=== PATIENT | male | born 1950 | race Caucasian/White ===

== ENCOUNTER → 2016-11-10 | Outpatient (CLI) | payer OTHER ==
[2016-11-10 08:58] LABS: Urine RBC None Seen /hpf (0 - 3)
[2016-11-10 09:09] LABS: Basophils # (auto) 0 uL; Basophils % (auto) 0.5 % (0.0-2.0); DEFINITIVE VIEW TRANSMISSION; Eosinophils # (auto) 0.2 uL; Eosinophils % (auto) 3.3 % (0.0-7.0); Hemoglobin 13.1 g/dL (13.5-17.5); Lymphocytes # (auto) 0.8 uL; Lymphocytes % (auto) 13.7 % (10.0-50.0); Mean Corpuscular Hemoglobin 26.5 pg (28.0-32.0); Mean Corpuscular Hgb Conc. 32.7 g/dL (32.0-36.0); Mean Platelet Volume 7.9 fL (7.4-10.4); Monocytes # (auto) 0.4 uL; Monocytes % (auto) 6.2 % (0.0-12.0); Neutrophils # (auto) 4.6 uL; Neutrophils % (auto) 76.3 % (37.0-80.0); Platelet Count (auto) 210 10^3/uL (140-450); Red Cell Distribution Width 15.9 % (11.6-16.0)
[2016-11-10 09:26] LABS: Urine Bilirubin Negative (Negative); Urine Blood Negative /uL (Negative); Urine Color Yellow (Yellow); Urine Glucose TRACE mg/dL (Normal); Urine Ketone Negative (Negative); Urine Nitrite Negative (Negative); Urine Urobilinogen Normal (Negative); Urine pH 5.5 (5.0-8.0)
[2016-11-10 09:31] LABS: Albumin 3.7 g/dL (3.4-5.0); Alkaline Phosphatase 72 U/L (45-117); Anion Gap 10 (5-15); Aspartate Aminotransferase 8 U/L (15-37); BUN/Creatinine Ratio 19.4; Bilirubin, Total 0.3 mg/dL (0.2-1.0); Blood Urea Nitrogen 28 mg/dL (7-18); Carbon Dioxide 26 mmol/L (21-32); Chloride 106 mmol/L (98-107); Cholesterol 152 mg/dL (<200); GFR African American 63 mL/min; GFR Non-African American 52 mL/min; Glucose 184 mg/dL (74-106); HDL Cholesterol 27 mg/dL (40-59); Sodium 142 mmol/L (136-145); Total Protein 6.9 g/dL (6.4-8.2); Triglycerides 424 mg/dL (<150)
== END | disposition home or self-care (01) ==
LOC: LAB 08:27
PROVIDERS: ATTEND Family Medicine
DX: E11.9 Type 2 diabetes mellitus without complications (principal)
CPT/HCPCS: 36415; 80053; 80061; 81001; 82043; 82746; 83036; 84443; 85025; 85049

== ENCOUNTER → 2016-11-27 | Outpatient (CLI) | payer OTHER | END | disposition home or self-care (01) | LOC: XY 09:53 | PROVIDERS: ATTEND Family Medicine | DX: I73.89 Other specified peripheral vascular diseases (principal); I70.8 Atherosclerosis of other arteries | CPT/HCPCS: 93923; 93925 ==

== ENCOUNTER → 2017-02-09 | Outpatient (CLI) | payer OTHER ==
[2017-02-09 10:47] LABS: INR 0.94 (0.9-1.15); Partial Thromboplastin Time 26.6 sec (22.64-33.71); Prothrombin Time 10.1 sec (9.37-12.3)
[2017-02-09 11:04] LABS: Basophils # (auto) 0 uL; Basophils % (auto) 0.6 % (0.0-2.0); DEFINITIVE VIEW TRANSMISSION; Eosinophils # (auto) 0.2 uL; Eosinophils % (auto) 4.1 % (0.0-7.0); Hematocrit 40.6 % (41.0-53.0); Hemoglobin 13.7 g/dL (13.5-17.5); Lymphocytes # (auto) 0.8 uL; Lymphocytes % (auto) 15.5 % (10.0-50.0); Mean Corpuscular Hemoglobin 26.8 pg (28.0-32.0); Mean Corpuscular Hgb Conc. 33.6 g/dL (32.0-36.0); Mean Corpuscular Volume 79.8 fL (80.0-100.0); Mean Platelet Volume 8.4 fL (7.4-10.4); Monocytes # (auto) 0.3 uL; Monocytes % (auto) 6.5 % (0.0-12.0); Neutrophils # (auto) 3.9 uL; Neutrophils % (auto) 73.3 % (37.0-80.0); Platelet Count (auto) 206 10^3/uL (140-450); Red Cell Distribution Width 15.5 % (11.6-16.0); White Blood Cell 5.4 10^3/uL (4.4-10.8)
[2017-02-09 11:10] LABS: BUN/Creatinine Ratio 11.9; Potassium 4.1 mmol/L (3.5-5.1)
== END | disposition home or self-care (01) ==
LOC: LAB 09:53
PROVIDERS: ATTEND Family Medicine
DX: E11.9 Type 2 diabetes mellitus without complications (principal); Z01.818 Encounter for other preprocedural examination; I73.00 Raynaud's syndrome without gangrene
CPT/HCPCS: 36415; 80048; 83036; 85025; 85610; 85730

== ENCOUNTER 2017-03-01 09:58 | Inpatient (IN) | payer OTHER ==
[2017-02-27 12:08] LABS: Basophils # (auto) 0 uL; Basophils % (auto) 0.7 % (0.0-2.0); DEFINITIVE VIEW TRANSMISSION; Eosinophils # (auto) 0.3 uL; Eosinophils % (auto) 4.2 % (0.0-7.0); Hematocrit 39.3 % (41.0-53.0); Lymphocytes # (auto) 0.9 uL; Lymphocytes % (auto) 14.2 % (10.0-50.0); Mean Corpuscular Hemoglobin 26.3 pg (28.0-32.0); Mean Corpuscular Volume 79.7 fL (80.0-100.0); Mean Platelet Volume 8.5 fL (7.4-10.4); Monocytes # (auto) 0.3 uL; Monocytes % (auto) 5.5 % (0.0-12.0); Neutrophils # (auto) 4.6 uL; Neutrophils % (auto) 75.4 % (37.0-80.0); Platelet Count (auto) 182 10^3/uL (140-450); Red Cell Distribution Width 16.1 % (11.6-16.0); White Blood Cell 6.1 10^3/uL (4.4-10.8)
[2017-02-27 12:27] LABS: INR 1.01 (0.9-1.15); Prothrombin Time 10.9 sec (9.37-12.3)
[2017-02-27 12:51] LABS: BUN/Creatinine Ratio 16.4; Calcium 8.7 mg/dL (8.5-10.1)
[~2017-03-01] VITALS: Ht 175.3 cm; Wt 92.2 kg
[2017-03-01] MEDS ORDERED: IOHEXOL 350 MG/ML 100ML IJ ONE (11:30)
[2017-03-01] MEDS ORDERED: LIDOCAINE 2%HCL (LOCAL ANESTH.) INJ 20ML MDV ONE (11:31)
[2017-03-01] MEDS ORDERED: ANGIOMAX 250 MG VIAL IV ONE (11:34)
[2017-03-01] MEDS ORDERED: fentaNYL CITRATE 100 MCG/2 ML VL ONE (11:35)
[2017-03-01] MEDS ORDERED: SODIUM CHL 0.9% 50 ML ONE (11:35)
[2017-03-01] MEDS ORDERED: MIDAZOLAM HCL 1MG/1ML-2 ML VIAL ONE (11:35)
[2017-03-01] MEDS ORDERED: SODIUM CHLORIDE 0.9% 1,000 ML IV SCH (13:13)
[2017-03-01] MEDS ORDERED: NITROGLYCERIN 0.4 MG SL TAB SL PRN (13:15)
[2017-03-01] MEDS ORDERED: ACETAMINOPHEN 500 MG TAB PO PRN (13:15)
[2017-03-01] MEDS ORDERED: ZOLPIDEM TARTRATE 5 MG TAB PO PRN (13:15)
[2017-03-01] MEDS ORDERED: LORazepam 0.5 MG TAB PO PRN (13:15)
[2017-03-01] MEDS ORDERED: MORPHINE SULF INJ 2 MG/ML SYRINGE 1ML IV PRN (13:15)
[2017-03-01] MEDS ORDERED: ONDANSETRON HCL 4 MG/2 ML VIAL IV PRN (13:15)
[2017-03-01] MEDS ORDERED: INSU70IN3 SC (13:21)
[2017-03-01] MEDS ORDERED: LOVA20TA4 PO (13:21)
[2017-03-01] MEDS ORDERED: INSUINJ18 SC (13:21)
[2017-03-01] MEDS ORDERED: SIMV-13 PO (13:21)
[2017-03-01] MEDS ORDERED: OME20T PO (13:21)
[2017-03-01] MEDS ORDERED: CLOP75TA41 PO (13:21)
[2017-03-01] MEDS ORDERED: FENO160T8 PO (13:21)
[2017-03-01] MEDS ORDERED: METF-312 PO (13:55)
[2017-03-01] MEDS ORDERED: CLOPIDOGREL 300 MG TAB PO ONE (17:00)
[2017-03-01] MEDS: metFORMIN HYDROCHLORIDE 500 MG TAB PO SCH (18:00)
[2017-03-01] MEDS: HYDROcodone-ACET 5/325MG TAB PO PRN ×2 (18:01→22:05)
[2017-03-01 22:00] VITALS: BP 147/73
[2017-03-01] MEDS ORDERED: ATORVASTATIN 20 MG TAB PO SCH (22:00)
[2017-03-02 05:00] VITALS: BP 150/79
[2017-03-02 08:00] VITALS: BP 154/80
[2017-03-02] MEDS ORDERED: INSULIN ASPART PROTAMINE SC SCH (08:00)
[2017-03-02] MEDS: metFORMIN HYDROCHLORIDE 500 MG TAB PO SCH (08:00)
[2017-03-02] MEDS ORDERED: ASP SC SCH (08:00)
[2017-03-02] MEDS ORDERED: [UNRECOGNIZED DRUG - OTHER] SC SCH (08:00)
[2017-03-02 09:00] VITALS: BP 154/80
[2017-03-02] MEDS ORDERED: CLOPIDOGREL BISULFATE 75 MG TAB PO SCH (10:00)
[2017-03-02] MEDS ORDERED: PATIENTS OWN MEDICATION (Lovastatin 1 TAB) PO SCH (10:00)
[2017-03-02] MEDS ORDERED: FENOFIBRATE 160 MG PO SCH (10:00)
[2017-03-02] MEDS ORDERED: PANTOPRAZOLE 40 MG TAB PO SCH (10:00)
[2017-03-02 13:00] VITALS: BP_SYST 117; BP_SYST 122; BP_DIAS 65
[2017-03-02 14:08] VITALS: BP 154/80
== END 2017-03-02 15:58 | disposition home or self-care (01) | DRG 272 ==
LOC: CATH 09:58 → TELE-E-ADS 09:59 → TELE-CENTR 15:33 → CENTRAL 03-02 02:44
PROVIDERS: ADMIT Internal Medicine Cardiovascular Disease; ATTEND Internal Medicine Cardiovascular Disease
PROC: 047K3Z1 Dilation of Right Femoral Artery using Drug-Coated Balloon, Percutaneous Approach (ICD-10-PCS; principal; 2017-03-01)
PROC: 04CK3ZZ Extirpation of Matter from Right Femoral Artery, Percutaneous Approach (ICD-10-PCS; 2017-03-01)
PROC: 047M3ZZ Dilation of Right Popliteal Artery, Percutaneous Approach (ICD-10-PCS; 2017-03-01)
PROC: 047Y3ZZ Dilation of Lower Artery, Percutaneous Approach (ICD-10-PCS; 2017-03-01)
PROC: B41F1ZZ Fluoroscopy of Right Lower Extremity Arteries using Low Osmolar Contrast (ICD-10-PCS; 2017-03-01)
DX: I74.3 Embolism and thrombosis of arteries of the lower extremities (principal); J44.9 Chronic obstructive pulmonary disease, unspecified; Z79.01 Long term (current) use of anticoagulants
CPT/HCPCS: 36415; 80048; 82962; 85025; 85610; C1769; J2250

== ENCOUNTER → 2017-06-05 | Outpatient (CLI) | payer OTHER ==
[~2017-06-05] MED LIST: CLOP75TA41 PO; FENO160T8 PO; INSUINJ18 SC; LOVA20TA4 PO; METF-370 PO; OME20T PO; SIMV-13 PO
[2017-06-05 10:56] LABS: Urine RBC None Seen /hpf (0 - 3)
[2017-06-05 11:06] LABS: Basophils # (auto) 0 uL; Basophils % (auto) 0.7 % (0.0-2.0); CONDITION Y; Eosinophils # (auto) 0.2 uL; Eosinophils % (auto) 4.1 % (0.0-7.0); Hematocrit 37.8 % (41.0-53.0); Hemoglobin 12.8 g/dL (13.5-17.5); Lymphocytes # (auto) 0.8 uL; Lymphocytes % (auto) 15.2 % (10.0-50.0); Mean Corpuscular Hemoglobin 27.5 pg (28.0-32.0); Mean Corpuscular Hgb Conc. 33.8 g/dL (32.0-36.0); Mean Corpuscular Volume 81.3 fL (80.0-100.0); Mean Platelet Volume 8.8 fL (7.4-10.4); Monocytes # (auto) 0.4 uL; Monocytes % (auto) 7.4 % (0.0-12.0); Neutrophils # (auto) 3.6 uL; Neutrophils % (auto) 72.6 % (37.0-80.0); Platelet Count (auto) 172 10^3/uL (140-450); Red Cell Distribution Width 16.8 % (11.6-16.0); Urine Bilirubin Negative (Negative); Urine Blood Negative /uL (Negative); Urine Color Yellow (Yellow); Urine Ketone Negative (Negative); Urine Mucus FEW (None Seen); Urine Nitrite Negative (Negative); Urine Squamous Epithelial Cell FEW /hpf (<5); Urine Urobilinogen Normal (Negative)
[2017-06-05 11:07] LABS: Urine Glucose 3+ mg/dL (Normal)
[2017-06-05 11:28] LABS: Albumin 3.5 g/dL (3.4-5.0); Alkaline Phosphatase 76 U/L (45-117); Anion Gap 10 (5-15); Aspartate Aminotransferase 8 U/L (15-37); BUN/Creatinine Ratio 15.4; Bilirubin, Total 0.4 mg/dL (0.2-1.0); Blood Urea Nitrogen 21 mg/dL (7-18); Calcium 8.6 mg/dL (8.5-10.1); Carbon Dioxide 25 mmol/L (21-32); Chloride 106 mmol/L (98-107); Cholesterol 132 mg/dL (< 200); GFR African American 67 mL/min; GFR Non-African American 56 mL/min; Glucose 182 mg/dL (74-106); HDL Cholesterol 22 mg/dL (40-59); Potassium 4.1 mmol/L (3.5-5.1); Sodium 141 mmol/L (136-145); Total Protein 6.9 g/dL (6.4-8.2); Triglycerides 625 mg/dL (< 150)
== END | disposition home or self-care (01) ==
LOC: LAB 10:05
PROVIDERS: ATTEND Family Medicine
DX: E11.8 Type 2 diabetes mellitus with unspecified complications (principal)
CPT/HCPCS: 36415; 80053; 80061; 81001; 83036; 84443; 85025

== ENCOUNTER 2017-08-06 08:46 | Day surgery (SDC) | payer OTHER ==
[2017-08-03 09:52] LABS: Basophils # (auto) 0.1 uL; Basophils % (auto) 1.3 % (0.0-2.0); Eosinophils # (auto) 0.3 uL; Hematocrit 40.3 % (41.0-53.0); Lymphocytes % (auto) 17.5 % (10.0-50.0); Mean Corpuscular Hemoglobin 28.6 pg (28.0-32.0); Mean Corpuscular Hgb Conc. 34.8 g/dL (32.0-36.0); Mean Corpuscular Volume 82.3 fL (80.0-100.0); Mean Platelet Volume 8.4 fL (6.9-10.8); Monocytes # (auto) 0.4 uL; Monocytes % (auto) 6.6 % (0.0-12.0); Neutrophils % (auto) 69.6 % (37.0-80.0); Nucleated Red Blood Cells % 0.1 %; Platelet Count (auto) 144 10^3/uL (140-450); Red Cell Distribution Width 15.8 % (11.8-14.3); White Blood Cell 5.7 10^3/uL (4.4-10.8)
[2017-08-03 10:00] LABS: INR 0.99 (0.9-1.15); Partial Thromboplastin Time 27.1 sec (22.64-33.71); Prothrombin Time 10.8 sec (9.37-12.3)
[~2017-08-06] VITALS: Ht 175.3 cm; Wt 90.7 kg
[~2017-08-06 08:46] MED LIST changes: +INSU70IN3 SC; -INSUINJ18 SC; +LIDOCAINE VISCOUS 2% 15ML UD ONE; +LISI10TA6 PO; -LOVA20TA4 PO; +MIDAZOLAM HCL 5 MG/ML-1ML VIAL ONE; -OME20T PO; +RANI300C7 PO; +SODIUM CHLORIDE LOCK 0 ML ONE; +diphenhdrAMINE HCL 50 MG/1 ML VL ONE; +fentaNYL CITRATE 100 MCG/2 ML VL ONE
[2017-08-06 11:20] VITALS: BP 126/71
[2017-08-06] MEDS ORDERED: MIDAZOLAM HCL 5 MG/ML-1ML VIAL ONE (14:58)
[2017-08-06] MEDS ORDERED: diphenhdrAMINE HCL 50 MG/1 ML VL ONE (14:58)
[2017-08-06] MEDS ORDERED: LIDOCAINE VISCOUS 2% 15ML UD ONE (14:58)
[2017-08-06] MEDS ORDERED: SODIUM CHLORIDE LOCK 10 ML ONE (14:58)
[2017-08-06] MEDS ORDERED: fentaNYL CITRATE 100 MCG/2 ML VL ONE (14:59)
== END 2017-08-06 11:24 | disposition home or self-care (01) ==
LOC: GI 08:46
PROVIDERS: ATTEND Internal Medicine Gastroenterology
DX: K29.50 Unspecified chronic gastritis without bleeding (principal); K44.9 Diaphragmatic hernia without obstruction or gangrene; E11.9 Type 2 diabetes mellitus without complications; K21.9 Gastro-esophageal reflux disease without esophagitis; Z95.5 Presence of coronary angioplasty implant and graft
CPT/HCPCS: 36415; 43239; 82962; 85025; 85610; 85730; J2250; J3010; J7030

== ENCOUNTER → 2017-10-19 | Outpatient (CLI) | payer OTHER ==
[~2017-10-19] VITALS: Ht 175.3 cm; Wt 90.7 kg
[~2017-10-19] MED LIST changes: +ADENOSINE 76 MG in GIVE UN-DILUTED 0 ML IV ONE; +ADENOSINE 90 MG/30 ML INJ IV ONE; -LIDOCAINE VISCOUS 2% 15ML UD ONE; -MIDAZOLAM HCL 5 MG/ML-1ML VIAL ONE; -SODIUM CHLORIDE LOCK 0 ML ONE; -diphenhdrAMINE HCL 50 MG/1 ML VL ONE; -fentaNYL CITRATE 100 MCG/2 ML VL ONE
== END | disposition home or self-care (01) ==
LOC: Rad HDHVI 10:30
PROVIDERS: ATTEND Internal Medicine Cardiovascular Disease
DX: I73.9 Peripheral vascular disease, unspecified (principal); E11.9 Type 2 diabetes mellitus without complications
CPT/HCPCS: 78452; 93005; 96374; 96375; A9500; J0153

== ENCOUNTER → 2017-10-23 | Outpatient (CLI) | payer OTHER ==
[~2017-10-23] MED LIST changes: -ADENOSINE 76 MG in GIVE UN-DILUTED 0 ML IV ONE; -ADENOSINE 90 MG/30 ML INJ IV ONE; +OME20T PO
== END | disposition home or self-care (01) ==
LOC: Rad HDHVI 08:10
PROVIDERS: ATTEND Internal Medicine Cardiovascular Disease
DX: I70.8 Atherosclerosis of other arteries (principal)
CPT/HCPCS: 93926

== ENCOUNTER 2017-10-26 08:09 | Emergency (ER) | payer OTHER ==
[~2017-10-26] VITALS: Ht 175.3 cm; Wt 95.3 kg
[~2017-10-26 08:09] MED LIST changes: -OME20T PO
[2017-10-26 08:55] LABS: Basophils # (auto) 0 uL; Basophils % (auto) 0.6 % (0.0-2.0); Eosinophils # (auto) 0.1 uL; Eosinophils % (auto) 1.4 % (0.0-7.0); Hematocrit 38.3 % (41.0-53.0); Hemoglobin 12.9 g/dL (13.5-17.5); Lymphocytes # (auto) 0.7 uL; Lymphocytes % (auto) 12.8 % (10.0-50.0); Mean Corpuscular Hemoglobin 27.5 pg (28.0-32.0); Mean Corpuscular Hgb Conc. 33.7 g/dL (32.0-36.0); Mean Corpuscular Volume 81.8 fL (80.0-100.0); Monocytes # (auto) 0.4 uL; Monocytes % (auto) 6.4 % (0.0-12.0); Neutrophils # (auto) 4.6 uL; Neutrophils % (auto) 78.8 % (37.0-80.0); Nucleated Red Blood Cells % 0.1 %; Platelet Count (auto) 172 10^3/uL (140-450); Red Blood Cells 4.69 10^6/uL (4.5-5.90); Red Cell Distribution Width 15.8 % (11.8-14.3); White Blood Cell 5.9 10^3/uL (4.4-10.8)
[2017-10-26 09:11] LABS: INR 0.96 (0.9-1.15); Prothrombin Time 10.5 sec (9.37-12.3)
[2017-10-26 09:16] LABS: Albumin 3.7 g/dL (3.4-5.0); Anion Gap 8 (5-15); Blood Urea Nitrogen 22 mg/dL (7-18); Carbon Dioxide 27 mmol/L (21-32); Chloride 106 mmol/L (98-107); Glucose 276 mg/dL (74-106); Sodium 141 mmol/L (136-145)
[2017-10-26 09:18] LABS: Alanine Aminotransferase 19 U/L (16-61); Aspartate Aminotransferase 7 U/L (15-37); BUN/Creatinine Ratio 16.1; GFR African American 67 mL/min; GFR Non-African American 55 mL/min
[2017-10-26 09:23] LABS: Alkaline Phosphatase 80 U/L (45-117); Bilirubin, Total 0.3 mg/dL (0.2-1.0); Total Protein 7.5 g/dL (6.4-8.2)
[2017-10-26 13:45] VITALS: BP 170/75
[2017-11-27] MEDS ORDERED: OME20T PO (15:21)
== END 2017-10-26 14:04 | disposition home or self-care (01) ==
LOC: ER 08:22
DX: R07.89 Other chest pain (principal); I10 Essential (primary) hypertension; E11.9 Type 2 diabetes mellitus without complications; E78.5 Hyperlipidemia, unspecified; Z79.4 Long term (current) use of insulin
CPT/HCPCS: 36415; 71020; 80053; 84484; 85025; 85610; 85730; 93005

== ENCOUNTER 2017-10-30 09:24 | Inpatient (IN) | payer OTHER ==
[~2017-10-30] VITALS: Ht 175.3 cm; Wt 90.7 kg
[2017-10-30 10:45] LABS: Basophils # (auto) 0.1 uL; Basophils % (auto) 1.1 % (0.0-2.0); Eosinophils # (auto) 0.1 uL; Hematocrit 39.9 % (41.0-53.0); Hemoglobin 13.5 g/dL (13.5-17.5); Lymphocytes # (auto) 0.9 uL; Lymphocytes % (auto) 12.6 % (10.0-50.0); Mean Corpuscular Hemoglobin 27.7 pg (28.0-32.0); Mean Corpuscular Hgb Conc. 33.9 g/dL (32.0-36.0); Mean Corpuscular Volume 81.8 fL (80.0-100.0); Monocytes # (auto) 0.4 uL; Monocytes % (auto) 5.8 % (0.0-12.0); Neutrophils # (auto) 5.7 uL; Neutrophils % (auto) 78.5 % (37.0-80.0); Nucleated Red Blood Cells % 0.1 %; Platelet Count (auto) 173 10^3/uL (140-450); Red Blood Cells 4.88 10^6/uL (4.5-5.90); White Blood Cell 7.2 10^3/uL (4.4-10.8)
[2017-10-30 11:00] LABS: INR 0.98 (0.9-1.15); Partial Thromboplastin Time 25.2 sec (22.64-33.71); Prothrombin Time 10.7 sec (9.37-12.3)
[2017-10-30 11:10] LABS: Alanine Aminotransferase 22 U/L (16-61); Albumin 3.8 g/dL (3.4-5.0); Alkaline Phosphatase 88 U/L (45-117); Anion Gap 7 (5-15); Aspartate Aminotransferase 13 U/L (15-37); BUN/Creatinine Ratio 18.8; Bilirubin, Total 0.3 mg/dL (0.2-1.0); Blood Urea Nitrogen 27 mg/dL (7-18); Calcium 8.7 mg/dL (8.5-10.1); Carbon Dioxide 27 mmol/L (21-32); Chloride 106 mmol/L (98-107); GFR African American 63 mL/min; GFR Non-African American 52 mL/min; Glucose 262 mg/dL (74-106); Potassium 4.5 mmol/L (3.5-5.1); Sodium 140 mmol/L (136-145); Total Protein 7.4 g/dL (6.4-8.2)
[2017-10-30 11:44] VITALS: BP 157/85
[2017-10-30] MEDS ORDERED: LACTULOSE 20Gm/30ML SOLN PO PRN (12:15)
[2017-10-30] MEDS ORDERED: DEXTROSE (50%) 50ML SYRG IV PRN ×2 (12:15)
[2017-10-30] MEDS ORDERED: MORPHINE SULFATE 4 MG/ML SYR/VIAL IV PRN (12:15)
[2017-10-30] MEDS ORDERED: NITROGLYCERIN 0.4 MG SL TAB SL PRN (12:15)
[2017-10-30] MEDS ORDERED: ASPirin 81 mg TAB PO SCH (12:34)
[2017-10-30] MEDS ORDERED: ENALAPRIL MALEATE 10 MG TAB PO SCH (12:35)
[2017-10-30] MEDS ORDERED: PANTOPRAZOLE 40 MG/10 ML VIAL IV SCH (12:35)
[2017-10-30] MEDS ORDERED: LIDOCAINE 2%HCL (LOCAL ANESTH.) INJ 20ML MDV ONE ×2 (12:40→14:24)
[2017-10-30] MEDS ORDERED: IOHEXOL 350 MG/ML 100ML IJ ONE ×2 (12:40→13:56)
[2017-10-30] MEDS: SODIUM CHLORIDE 0.9% 1,000 ML IV SCH ×2 (12:46→14:57)
[2017-10-30] MEDS ORDERED: ANGIOMAX 250 MG VIAL IV ONE (13:53)
[2017-10-30] MEDS ORDERED: fentaNYL CITRATE 100 MCG/2 ML VL ONE (13:53)
[2017-10-30] MEDS ORDERED: MIDAZOLAM HCL 1MG/1ML-2 ML VIAL ONE (13:53)
[2017-10-30] MEDS ORDERED: IODIXANOL 320MG/ML 100ML BTL IV ONE (14:03)
[2017-10-30] MEDS ORDERED: SODIUM CHLORIDE 0.9% 1,000 ML IV SCH (15:00)
[2017-10-30] MEDS ORDERED: InsuLIN REG 1unit/0.01ml Soln (100units/ml) SC SCH (18:00)
[2017-10-30] MEDS ORDERED: ACCU-CHEK COMFORT CURVE STRIP VI SCH (18:00)
[2017-10-30] MEDS ORDERED: ATORVASTATIN 20 MG TAB PO SCH (22:00)
[2017-10-30] MEDS ORDERED: METOPROLOL TARTRATE 25 MG TAB PO SCH (22:00)
[2017-11-27] MEDS ORDERED: OME20T PO (15:21)
== END 2017-10-30 17:00 | disposition home or self-care (01) | DRG 287 ==
LOC: ER 09:24 → TELE 09:25
PROVIDERS: ADMIT Family Medicine; ATTEND Family Medicine
PROC: 4A023N7 Measurement of Cardiac Sampling and Pressure, Left Heart, Percutaneous Approach (ICD-10-PCS; principal; 2017-10-30)
PROC: B2111ZZ Fluoroscopy of Multiple Coronary Arteries using Low Osmolar Contrast (ICD-10-PCS; 2017-10-30)
PROC: B2151ZZ Fluoroscopy of Left Heart using Low Osmolar Contrast (ICD-10-PCS; 2017-10-30)
PROC: B41F1ZZ Fluoroscopy of Right Lower Extremity Arteries using Low Osmolar Contrast (ICD-10-PCS; 2017-10-30)
DX: I25.110 Atherosclerotic heart disease of native coronary artery with unstable angina pectoris (principal); E11.51 Type 2 diabetes mellitus with diabetic peripheral angiopathy without gangrene; J44.9 Chronic obstructive pulmonary disease, unspecified; E11.65 Type 2 diabetes mellitus with hyperglycemia; E78.5 Hyperlipidemia, unspecified; M19.90 Unspecified osteoarthritis, unspecified site; K59.00 Constipation, unspecified; G56.03 Carpal tunnel syndrome, bilateral upper limbs; I10 Essential (primary) hypertension; Z87.891 Personal history of nicotine dependence; Z79.4 Long term (current) use of insulin; Z79.899 Other long term (current) drug therapy; Z83.3 Family history of diabetes mellitus; Z82.49 Family history of ischemic heart disease and other diseases of the circulatory system; Z79.82 Long term (current) use of aspirin
CPT/HCPCS: 36415; 71046; 80053; 82962; 83036; 84484; 85025; 85610; 85730; 93005; 93458; 94761; 96374; 96375; 99152; C9113; J2250; Q9967

== ENCOUNTER → 2017-11-27 | Outpatient (CLI) | payer OTHER ==
[~2017-11-27] MED LIST changes: +OME20T PO
[2017-11-27 14:43] LABS: Basophils # (auto) 0.1 uL; Basophils % (auto) 1.2 % (0.0-2.0); Eosinophils # (auto) 0.2 uL; Eosinophils % (auto) 2.4 % (0.0-7.0); Hematocrit 42.1 % (41.0-53.0); Hemoglobin 14.3 g/dL (13.5-17.5); Lymphocytes % (auto) 12.6 % (10.0-50.0); Mean Corpuscular Hemoglobin 27.8 pg (28.0-32.0); Mean Corpuscular Hgb Conc. 33.9 g/dL (32.0-36.0); Mean Corpuscular Volume 81.9 fL (80.0-100.0); Monocytes # (auto) 0.5 uL; Monocytes % (auto) 6.5 % (0.0-12.0); Neutrophils # (auto) 6.2 uL; Neutrophils % (auto) 77.3 % (37.0-80.0); Nucleated Red Blood Cells % 0.1 %; Platelet Count (auto) 195 10^3/uL (140-450); Red Blood Cells 5.14 10^6/uL (4.5-5.90); Red Cell Distribution Width 16.5 % (11.8-14.3)
[2017-11-27 15:19] LABS: BUN/Creatinine Ratio 14.9; Calcium 8.9 mg/dL (8.5-10.1); Potassium 4.2 mmol/L (3.5-5.1)
[2017-11-27 16:06] LABS: INR 0.94 (0.9-1.15); Prothrombin Time 10.2 sec (9.37-12.3)
== END | disposition home or self-care (01) ==
LOC: LAB 14:17
PROVIDERS: ATTEND Family Medicine
DX: Z01.818 Encounter for other preprocedural examination (principal)
CPT/HCPCS: 36415; 80048; 85025; 85610

== ENCOUNTER 2017-11-29 08:05 | Inpatient (IN) | payer OTHER ==
[~2017-11-29] VITALS: Ht 175.3 cm; Wt 95.5 kg
[~2017-11-29 08:05] MED LIST changes: -RANI300C7 PO
[2017-11-29] MEDS ORDERED: HYDROcodone-ACET 10/325MG TAB ONE (10:11)
[2017-11-29] MEDS ORDERED: HYDROcodone-ACET 10/325MG TAB PO ONE (10:15)
[2017-11-29] MEDS ORDERED: IOHEXOL 350 MG/ML 100ML IJ ONE (10:32)
[2017-11-29] MEDS ORDERED: LIDOCAINE 2%HCL (LOCAL ANESTH.) INJ 20ML MDV ONE (10:32)
[2017-11-29] MEDS ORDERED: MIDAZOLAM HCL 1MG/1ML-2 ML VIAL ONE ×2 (10:36→11:30)
[2017-11-29] MEDS ORDERED: fentaNYL CITRATE 100 MCG/2 ML VL ONE (10:36)
[2017-11-29] MEDS ORDERED: ANGIOMAX 250 MG VIAL IV ONE (10:52)
[2017-11-29] MEDS ORDERED: NITROGLYCERIN 5MG/ML 10ML VIAL IV ONE (11:19)
[2017-11-29] MEDS ORDERED: SODIUM CHL 0.9% 50 ML ONE (11:19)
[2017-11-29] MEDS ORDERED: SODIUM CHL 0.9% 150 ML ONE (11:23)
[2017-11-29] MEDS ORDERED: SODIUM CHLORIDE 0.9% 1,000 ML IV SCH (11:55)
[2017-11-29] MEDS ORDERED: ONDANSETRON HCL 4 MG/2 ML VIAL IV PRN (12:00)
[2017-11-29] MEDS ORDERED: LORazepam 0.5 MG TAB PO PRN (12:00)
[2017-11-29] MEDS ORDERED: ZOLPIDEM TARTRATE 5 MG TAB PO PRN (12:00)
[2017-11-29] MEDS ORDERED: ACETAMINOPHEN 500 MG TAB PO PRN (12:00)
[2017-11-29 13:52] VITALS: BP 139/64
[2017-11-29] MEDS: HYDROcodone-ACET 10/325MG TAB PO PRN ×3 (14:12→22:30)
[2017-11-29] MEDS: SODIUM CHLOR 0.9% PF (SALINE LOCK) 10ML VIAL IV SCH ×2 (15:54→22:11)
[2017-11-29 16:42] VITALS: BP 139/77
[2017-11-29] MEDS ORDERED: INSULIN 70/30 1unit/0.01ml Susp (100units/ml) SC SCH (18:00)
[2017-11-29 22:00] VITALS: BP 148/80
[2017-11-29] MEDS ORDERED: ATORVASTATIN 20 MG TAB PO SCH (22:00)
[2017-11-30] MEDS: HYDROcodone-ACET 10/325MG TAB PO PRN ×3 (02:30→10:45)
[2017-11-30 05:15] VITALS: BP 151/58
[2017-11-30] MEDS: SODIUM CHLOR 0.9% PF (SALINE LOCK) 10ML VIAL IV SCH ×2 (06:22→14:09)
[2017-11-30] MEDS ORDERED: INSULIN 70/30 1unit/0.01ml Susp (100units/ml) SC SCH (07:00)
[2017-11-30 08:00] VITALS: BP 145/72
[2017-11-30 09:00] VITALS: BP 140/73
[2017-11-30] MEDS ORDERED: OMEPRAZOLE 20MG/10ML ORAL SUSP PO SCH (10:00)
[2017-11-30] MEDS ORDERED: CLOPIDOGREL BISULFATE 75 MG TAB PO SCH (10:00)
[2017-11-30] MEDS ORDERED: LISINOPRIL 10 MG TAB PO SCH (10:00)
[2017-11-30 13:00] VITALS: BP 145/72
[2017-11-30 15:22] VITALS: BP 140/73
[2017-12-01] MEDS ORDERED: PANTOPRAZOLE 40 MG TAB PO SCH (10:00)
== END 2017-11-30 16:15 | disposition home or self-care (01) | DRG 271 ==
LOC: CATH 08:05 → WEST WING 08:06
PROVIDERS: ADMIT Internal Medicine Cardiovascular Disease; ATTEND Internal Medicine Cardiovascular Disease
PROC: B41F1ZZ Fluoroscopy of Right Lower Extremity Arteries using Low Osmolar Contrast (ICD-10-PCS; principal; 2017-11-29)
PROC: 04CK3ZZ Extirpation of Matter from Right Femoral Artery, Percutaneous Approach (ICD-10-PCS; 2017-11-29)
PROC: 047K3Z1 Dilation of Right Femoral Artery using Drug-Coated Balloon, Percutaneous Approach (ICD-10-PCS; 2017-11-29)
DX: I70.201 Unspecified atherosclerosis of native arteries of extremities, right leg (principal); I74.3 Embolism and thrombosis of arteries of the lower extremities; E78.5 Hyperlipidemia, unspecified; I10 Essential (primary) hypertension; I25.10 Atherosclerotic heart disease of native coronary artery without angina pectoris
CPT/HCPCS: 37225; 75710; 82962; 87081; 99152; J2250; J3490

== ENCOUNTER → 2018-01-09 | Outpatient (CLI) | payer OTHER | END | disposition home or self-care (01) | LOC: Rad HDHVI 08:50 | PROVIDERS: ATTEND Internal Medicine Cardiovascular Disease | DX: I73.9 Peripheral vascular disease, unspecified (principal); I10 Essential (primary) hypertension; E78.00 Pure hypercholesterolemia, unspecified | CPT/HCPCS: 93926 ==

== ENCOUNTER → 2018-02-15 | Outpatient (CLI) | payer OTHER ==
[2018-02-15 10:01] LABS: Cholesterol 127 mg/dL (< 200); HDL Cholesterol 26 mg/dL (40-59); LDL Cholesterol 72 mg/dL (< 100); Triglycerides 329 mg/dL (< 150)
== END | disposition home or self-care (01) ==
LOC: LAB 08:30
PROVIDERS: ATTEND Family Medicine
DX: E11.8 Type 2 diabetes mellitus with unspecified complications (principal); E78.5 Hyperlipidemia, unspecified; I10 Essential (primary) hypertension; E78.00 Pure hypercholesterolemia, unspecified; J44.9 Chronic obstructive pulmonary disease, unspecified; Z79.4 Long term (current) use of insulin; Z79.82 Long term (current) use of aspirin; Z79.899 Other long term (current) drug therapy; Z79.01 Long term (current) use of anticoagulants
CPT/HCPCS: 36415; 80061; 83036; 84153

== ENCOUNTER → 2018-02-18 | Outpatient (CLI) | payer OTHER | END | disposition home or self-care (01) | LOC: LAB 10:34 | PROVIDERS: ATTEND Family Medicine | DX: E11.8 Type 2 diabetes mellitus with unspecified complications (principal); E78.5 Hyperlipidemia, unspecified; E78.00 Pure hypercholesterolemia, unspecified; Z79.01 Long term (current) use of anticoagulants; Z79.4 Long term (current) use of insulin; Z79.899 Other long term (current) drug therapy | CPT/HCPCS: 82270 ==

== ENCOUNTER → 2018-09-13 | Outpatient (CLI) | payer OTHER ==
[2018-09-13 12:01] LABS: Urine WBC None Seen /hpf (0 - 3)
[2018-09-13 12:14] LABS: Urine Bacteria NONE SEEN /hpf (None Seen); Urine Blood Negative /uL (Negative); Urine Specific Gravity 1.017 (1.001-1.035)
[2018-09-13 12:42] LABS: Basophils # (auto) 0.1 uL; Eosinophils # (auto) 0.4 uL; Hemoglobin 11.8 g/dL (13.5-17.5); Monocytes # (auto) 0.4 uL; Platelet Count (auto) 187 10^3/uL (140-450); White Blood Cell 5.8 10^3/uL (4.4-10.8)
[2018-09-13 12:44] LABS: Albumin 3.6 g/dL (3.4-5.0); Anion Gap 6 (5-15); Blood Urea Nitrogen 22 mg/dL (7-18); Calcium 8.9 mg/dL (8.5-10.1); Carbon Dioxide 26 mmol/L (21-32); Chloride 108 mmol/L (98-107); Glucose 165 mg/dL (74-106); Potassium 4.5 mmol/L (3.5-5.1); Sodium 140 mmol/L (136-145)
[2018-09-13 12:45] LABS: Basophils % (auto) 1.2 % (0.0-2.0); Eosinophils % (auto) 6.7 % (0.0-7.0); Hematocrit 36.1 % (41.0-53.0); Lymphocytes # (auto) 0.8 uL; Lymphocytes % (auto) 14.1 % (10.0-50.0); Mean Corpuscular Hemoglobin 25.8 pg (28.0-32.0); Mean Corpuscular Hgb Conc. 32.8 g/dL (32.0-36.0); Mean Corpuscular Volume 78.7 fL (80.0-100.0); Monocytes % (auto) 6.4 % (0.0-12.0); Neutrophils # (auto) 4.2 uL; Neutrophils % (auto) 71.6 % (37.0-80.0); Red Blood Cells 4.58 10^6/uL (4.5-5.90); Red Cell Distribution Width 15.8 % (11.8-14.3)
[2018-09-13 12:50] LABS: Alanine Aminotransferase 19 U/L (16-61); Alkaline Phosphatase 75 U/L (45-117); Aspartate Aminotransferase 10 U/L (15-37); BUN/Creatinine Ratio 18.6; Bilirubin, Total 0.3 mg/dL (0.2-1.0); Cholesterol 141 mg/dL (< 200); GFR African American 79 mL/min; GFR Non-African American 65 mL/min; HDL Cholesterol 23 mg/dL (40-59); Total Protein 7.1 g/dL (6.4-8.2); Triglycerides 523 mg/dL (< 150)
== END | disposition home or self-care (01) ==
LOC: LAB 10:54
PROVIDERS: ATTEND Nurse Practitioner
DX: E78.5 Hyperlipidemia, unspecified (principal); I10 Essential (primary) hypertension; E11.9 Type 2 diabetes mellitus without complications; Z79.899 Other long term (current) drug therapy
CPT/HCPCS: 36415; 80053; 80061; 81001; 82043; 82306; 83036; 84153; 85025

== ENCOUNTER 2018-10-17 06:31 | Inpatient (IN) | payer OTHER ==
[2018-10-11 10:06] LABS: Basophils # (auto) 0.1 uL; Eosinophils # (auto) 0.3 uL; Lymphocytes # (auto) 1.2 uL; Monocytes # (auto) 0.4 uL
[2018-10-11 10:08] LABS: Basophils % (auto) 0.7 % (0.0-2.0); Eosinophils % (auto) 3.8 % (0.0-7.0); Hematocrit 38.1 % (41.0-53.0); Hemoglobin 12.6 g/dL (13.5-17.5); Lymphocytes % (auto) 17.4 % (10.0-50.0); Mean Corpuscular Hemoglobin 25.5 pg (28.0-32.0); Mean Corpuscular Hgb Conc. 33.1 g/dL (32.0-36.0); Mean Corpuscular Volume 77.1 fL (80.0-100.0); Monocytes % (auto) 5.8 % (0.0-12.0); Neutrophils # (auto) 4.9 uL; Neutrophils % (auto) 72.3 % (37.0-80.0); Platelet Count (auto) 202 10^3/uL (140-450); Red Blood Cells 4.95 10^6/uL (4.5-5.90); Red Cell Distribution Width 15.9 % (11.8-14.3); Urine Bacteria NONE SEEN /hpf (None Seen); Urine Blood Negative /uL (Negative); Urine Mucus FEW (None Seen); Urine Specific Gravity 1.024 (1.001-1.035); Urine WBC <1 /hpf (0 - 3); White Blood Cell 6.8 10^3/uL (4.4-10.8)
[2018-10-11 10:26] LABS: INR 0.96 (0.9-1.15); Partial Thromboplastin Time 28.6 sec (23.78-33.04); Prothrombin Time 10.3 sec (9.27-12.13)
[2018-10-11 11:12] LABS: Albumin 3.8 g/dL (3.4-5.0); Calcium 8.9 mg/dL (8.5-10.1); Potassium 4.2 mmol/L (3.5-5.1)
[2018-10-11 11:16] LABS: BUN/Creatinine Ratio 16.5; Bilirubin, Total 0.3 mg/dL (0.2-1.0); Total Protein 7.4 g/dL (6.4-8.2)
[~2018-10-17] VITALS: Ht 175.3 cm; Wt 90.3 kg
[~2018-10-17 06:31] MED LIST changes: +ASPI81TA27 PO; +ERGO2000 PO; -OME20T PO; +TRAM50TA2 PO
[2018-10-17] MEDS ORDERED: IODIXANOL 320MG/ML 100ML BTL IV ONE (07:36)
[2018-10-17] MEDS ORDERED: LIDOCAINE 2%HCL (LOCAL ANESTH.) INJ 20ML MDV ONE (07:36)
[2018-10-17] MEDS ORDERED: ANGIOMAX 250 MG VIAL IV ONE ×2 (07:40→10:10)
[2018-10-17] MEDS ORDERED: VERAPAMIL 2.5MG/ML INJ 2ML VIAL IV ONE (07:40)
[2018-10-17] MEDS ORDERED: SODIUM CHL 0.9% 50 ML ONE ×2 (07:41→10:10)
[2018-10-17] MEDS ORDERED: fentaNYL CITRATE 100 MCG/2 ML VL ONE ×2 (07:41→09:48)
[2018-10-17] MEDS ORDERED: MIDAZOLAM HCL 1MG/1ML-2 ML VIAL ONE ×2 (07:41→09:48)
[2018-10-17] MEDS ORDERED: HEPARIN DRIP/D5W 100UNITS/ML 0 ML IV ONE (08:20)
[2018-10-17] MEDS ORDERED: NITROGLYCERIN 5MG/ML 10ML VIAL IV ONE (09:24)
[2018-10-17] MEDS ORDERED: ASPirin 325 MG TAB ONE (10:13)
[2018-10-17] MEDS ORDERED: MORPHINE SULFATE 4 MG/ML SYR/VIAL IV PRN (10:45)
[2018-10-17] MEDS ORDERED: ERGOCALCIFEROL 50,000 UNIT(1.25MG) CAP PO SCH (10:45)
[2018-10-17] MEDS ORDERED: DEXTROSE (50%) 50ML SYRG IV PRN (11:00)
[2018-10-17 14:09] VITALS: BP 104/66
[2018-10-17 16:23] VITALS: BP 116/61
[2018-10-17] MEDS ORDERED: INSULIN 70/30 1unit/0.01ml Susp (100units/ml) SC SCH (18:00)
[2018-10-17] MEDS: ACCU-CHEK COMFORT CURVE STRIP VI SCH (18:40)
[2018-10-17 20:05] VITALS: BP 138/69
[2018-10-17 22:00] VITALS: BP 138/69
[2018-10-17] MEDS ORDERED: InsuLIN REG 1unit/0.01ml Soln (100units/ml) SC SCH (22:00)
[2018-10-17] MEDS ORDERED: ATORVASTATIN 20 MG TAB PO SCH (22:00)
[2018-10-17] MEDS ORDERED: traMADol HCL 50 MG TAB PO SCH (22:00)
[2018-10-17] MEDS: HYDROcodone-ACET 5/325MG TAB PO PRN (22:04)
[2018-10-18 05:00] VITALS: BP 130/64
[2018-10-18] MEDS: ACCU-CHEK COMFORT CURVE STRIP VI SCH (06:17)
[2018-10-18] MEDS: HYDROcodone-ACET 5/325MG TAB PO PRN (06:20)
[2018-10-18] MEDS ORDERED: INSULIN 70/30 1unit/0.01ml Susp (100units/ml) SC SCH (07:00)
[2018-10-18 09:00] VITALS: BP 131/65
[2018-10-18] MEDS ORDERED: Fenofibrate 160MG TABLET PO SCH (10:00)
[2018-10-18] MEDS ORDERED: CLOPIDOGREL BISULFATE 75 MG TAB PO SCH (10:00)
[2018-10-18] MEDS ORDERED: ASPirin 81 mg TAB PO SCH (10:00)
[2018-10-18] MEDS ORDERED: LISINOPRIL 10 MG TAB PO SCH (10:00)
[2018-10-18] MEDS ORDERED: ASPirin-EC 81 mg tab PO SCH (10:00)
[2018-10-18 12:54] VITALS: BP 125/70
[2018-10-18 17:00] VITALS: BP 125/70
== END 2018-10-18 17:25 | disposition home or self-care (01) | DRG 272 ==
LOC: CATH 06:31 → TELE-WESTW 11:20
PROVIDERS: ADMIT Internal Medicine Cardiovascular Disease; ATTEND Internal Medicine Cardiovascular Disease
PROC: 04CK3ZZ Extirpation of Matter from Right Femoral Artery, Percutaneous Approach (ICD-10-PCS; principal; 2018-10-17)
PROC: 04CM3ZZ Extirpation of Matter from Right Popliteal Artery, Percutaneous Approach (ICD-10-PCS; 2018-10-17)
PROC: B41G1ZZ Fluoroscopy of Left Lower Extremity Arteries using Low Osmolar Contrast (ICD-10-PCS; 2018-10-17)
PROC: B41F1ZZ Fluoroscopy of Right Lower Extremity Arteries using Low Osmolar Contrast (ICD-10-PCS; 2018-10-17)
PROC: 04CT3ZZ Extirpation of Matter from Right Peroneal Artery, Percutaneous Approach (ICD-10-PCS; 2018-10-17)
PROC: 047K3Z1 Dilation of Right Femoral Artery using Drug-Coated Balloon, Percutaneous Approach (ICD-10-PCS; 2018-10-17)
DX: E11.51 Type 2 diabetes mellitus with diabetic peripheral angiopathy without gangrene (principal); E78.5 Hyperlipidemia, unspecified; I10 Essential (primary) hypertension; I25.10 Atherosclerotic heart disease of native coronary artery without angina pectoris; J44.9 Chronic obstructive pulmonary disease, unspecified; Z87.891 Personal history of nicotine dependence; Z88.8 Allergy status to other drugs, medicaments and biological substances
CPT/HCPCS: 36415; 80053; 81001; 82962; 85025; 85610; 85730; A6257; C1769; G0378; J2250; J3490; Q9967

== ENCOUNTER → 2018-11-07 | Outpatient (CLI) | payer OTHER | END | disposition home or self-care (01) | LOC: XY 09:04 | PROVIDERS: ATTEND Nurse Practitioner | DX: I70.201 Unspecified atherosclerosis of native arteries of extremities, right leg (principal) | CPT/HCPCS: 93925 ==

== ENCOUNTER → 2019-01-06 | Outpatient (CLI) | payer OTHER ==
[~2019-01-06] MED LIST changes: +ALPH300C PO; +LISI-646 PO; +ROSU40TA PO
[2019-01-06 10:00] LABS: Basophils # (auto) 0 uL; Eosinophils # (auto) 0.3 uL; Hemoglobin 12.5 g/dL (13.5-17.5); Lymphocytes # (auto) 0.7 uL; Lymphocytes % (auto) 11.7 % (10.0-50.0); Mean Corpuscular Hemoglobin 25.1 pg (28.0-32.0); Monocytes # (auto) 0.4 uL; Nucleated Red Blood Cells % 0.1 %; White Blood Cell 5.7 10^3/uL (4.4-10.8)
[2019-01-06 10:02] LABS: Basophils % (auto) 0.7 % (0.0-2.0); Eosinophils % (auto) 4.7 % (0.0-7.0); Hematocrit 38.2 % (41.0-53.0); Mean Corpuscular Hgb Conc. 32.8 g/dL (32.0-36.0); Mean Corpuscular Volume 76.6 fL (80.0-100.0); Monocytes % (auto) 6.5 % (0.0-12.0); Neutrophils # (auto) 4.4 uL; Neutrophils % (auto) 76.4 % (37.0-80.0); Platelet Count (auto) 160 10^3/uL (140-450); Red Blood Cells 4.99 10^6/uL (4.5-5.90)
[2019-01-06 10:08] LABS: INR 0.95 (0.9-1.15); Partial Thromboplastin Time 27.1 sec (23.78-33.04); Prothrombin Time 10.2 sec (9.27-12.13)
[2019-01-06 10:23] LABS: Anion Gap 5 (5-15); Calcium 8.7 mg/dL (8.5-10.1); Carbon Dioxide 27 mmol/L (21-32); Chloride 107 mmol/L (98-107); Glucose 167 mg/dL (74-106); Potassium 4.3 mmol/L (3.5-5.1); Sodium 139 mmol/L (136-145)
[2019-01-06 10:29] LABS: Alanine Aminotransferase 23 U/L (16-61); Albumin 3.6 g/dL (3.4-5.0); Alkaline Phosphatase 92 U/L (45-117); Aspartate Aminotransferase 13 U/L (15-37); Bilirubin, Total 0.3 mg/dL (0.2-1.0); Blood Urea Nitrogen 20 mg/dL (7-18); Cholesterol 133 mg/dL (< 200); GFR African American 74 mL/min; GFR Non-African American 61 mL/min; HDL Cholesterol 21 mg/dL (40-59); Total Protein 7.2 g/dL (6.4-8.2); Triglycerides 650 mg/dL (< 150)
== END | disposition home or self-care (01) ==
LOC: LAB 09:29
PROVIDERS: ATTEND Internal Medicine
DX: Z01.818 Encounter for other preprocedural examination (principal)
CPT/HCPCS: 36415; 80053; 80061; 82043; 83036; 85025; 85610; 85730

== ENCOUNTER 2019-01-09 10:12 | Inpatient (IN) | payer OTHER ==
[~2019-01-09] VITALS: Ht 175.3 cm; Wt 99.5 kg
[~2019-01-09 10:12] MED LIST changes: -ASPI81TA27 PO; -ERGO2000 PO; -LISI10TA6 PO; -SIMV-13 PO; -TRAM50TA2 PO
[2019-01-09] MEDS ORDERED: IOHEXOL 350 MG/ML 100ML IJ ONE (13:27)
[2019-01-09] MEDS ORDERED: MIDAZOLAM HCL 1MG/1ML-2 ML VIAL ONE (13:36)
[2019-01-09] MEDS ORDERED: fentaNYL CITRATE 100 MCG/2 ML VL ONE (13:38)
[2019-01-09] MEDS ORDERED: ANGIOMAX 250 MG VIAL IV ONE (13:49)
[2019-01-09] MEDS ORDERED: SODIUM CHL 0.9% 50 ML ONE (13:50)
[2019-01-09] MEDS ORDERED: HYDROcodone-ACET 5/325MG TAB PO PRN (14:45)
[2019-01-09] MEDS ORDERED: NITROGLYCERIN 0.4 MG SL TAB SL PRN (14:45)
[2019-01-09] MEDS ORDERED: ONDANSETRON HCL 4 MG/2 ML VIAL IV PRN (14:45)
[2019-01-09] MEDS ORDERED: ACETAMINOPHEN 500 MG TAB PO PRN (14:45)
[2019-01-09] MEDS ORDERED: MORPHINE SULF INJ 2 MG/ML SYRINGE 1ML IV PRN (14:45)
[2019-01-09] MEDS ORDERED: DEXTROSE (50%) 50ML SYRG IV PRN (15:00)
--- NOTE | 2019-01-09 15:30 | NUR ---
Med Surg admit from [facility] BOBBY ALBARRAN admitted to Med Surg unit after SBAR received. Patient oriented to ANDREI GUZMAN, primary RN, unit, room, bed, and unit policies regarding patient care and visiting hours. Patient placed on bedside oxygen, weighed by bedscale and encouraged to call if they need something. All questions and concerns addressed, patient verbalized understanding. Note: []
[2019-01-09 16:21] VITALS: BP 138/73
[2019-01-09] MEDS: InsuLIN REG 1unit/0.01ml Soln (100units/ml) SC SCH ×2 (17:21→22:01)
[2019-01-09] MEDS: ACCU-CHEK COMFORT CURVE STRIP VI SCH ×2 (17:21→21:54)
[2019-01-09] MEDS ORDERED: INSULIN 70/30 1unit/0.01ml Susp (100units/ml) SC SCH (18:00)
--- NOTE | 2019-01-09 20:00 | NUR ---
Opening Shift Note Assumed care of patient, awake and alert. No S/S of distress/SOB, C/O right groin pain, medicated with norco PRN. Right groin with dressing clean, dry and intact, no signs of bleeding, palpable bilateral pedal pulses. Instructed on POC and to call for assist PRN, will continue to monitor for changes Q1hr and PRN.
[2019-01-09 22:00] VITALS: BP 126/60
[2019-01-09] MEDS ORDERED: Rosuvastatin Calcium (Crestor) 40MG TABLET PO SCH (22:00)
[2019-01-10 05:00] VITALS: BP 123/62
[2019-01-10] MEDS: InsuLIN REG 1unit/0.01ml Soln (100units/ml) SC SCH ×3 (06:56→17:00)
[2019-01-10] MEDS: ACCU-CHEK COMFORT CURVE STRIP VI SCH ×3 (06:56→17:00)
[2019-01-10] MEDS ORDERED: INSULIN 70/30 1unit/0.01ml Susp (100units/ml) SC SCH (07:00)
--- NOTE | 2019-01-10 07:20 | NUR ---
Opening Shift Note Assumed care of patient, awake and alert. No S/S of distress/SOB or pain. Instructed on POC and to call for assist PRN, will continue to monitor for changes Q1hr and PRN.
[2019-01-10 08:00] VITALS: BP 115/68
[2019-01-10 09:47] VITALS: BP 115/68
[2019-01-10] MEDS ORDERED: ALPHA LIPOIC ACID 300 MG PO SCH (10:00)
[2019-01-10] MEDS ORDERED: CLOPIDOGREL BISULFATE 75 MG TAB PO SCH (10:00)
[2019-01-10] MEDS ORDERED: LISINOPRIL 20 MG TAB PO SCH (10:00)
[2019-01-10 13:19] VITALS: BP 135/75
[2019-01-10 16:50] LABS: Cholesterol 123 mg/dL (< 200); HDL Cholesterol 21 mg/dL (40-59); Triglycerides 512 mg/dL (< 150)
[2019-01-10 17:51] VITALS: BP 140/81
--- NOTE | 2019-01-10 19:00 | NUR ---
Discharge from Tele Discharge instructions given as ordered. Encourage to follow up with PMD as instructed. All questions and concerns addressed. Patient verbalized understanding. IV removed with catheter intact, pressure dressing applied. Patient taken to vehicle via wheelchair with all personal belongings, accompanied by staff and family member. No distress noted at time of departure.
== END 2019-01-10 19:08 | disposition home or self-care (01) | DRG 254 ==
LOC: CATH 10:12 → CENTRAL 15:30
PROVIDERS: ADMIT Internal Medicine Cardiovascular Disease; ATTEND Internal Medicine Cardiovascular Disease
PROC: 047L3Z1 Dilation of Left Femoral Artery using Drug-Coated Balloon, Percutaneous Approach (ICD-10-PCS; principal; 2019-01-09)
PROC: 047D3Z1 Dilation of Left Common Iliac Artery using Drug-Coated Balloon, Percutaneous Approach (ICD-10-PCS; 2019-01-09)
PROC: B41G1ZZ Fluoroscopy of Left Lower Extremity Arteries using Low Osmolar Contrast (ICD-10-PCS; 2019-01-09)
PROC: B41F1ZZ Fluoroscopy of Right Lower Extremity Arteries using Low Osmolar Contrast (ICD-10-PCS; 2019-01-09)
DX: E11.51 Type 2 diabetes mellitus with diabetic peripheral angiopathy without gangrene (principal); I73.9 Peripheral vascular disease, unspecified; N18.3 Chronic kidney disease, stage 3 (moderate); E11.21 Type 2 diabetes mellitus with diabetic nephropathy; E11.40 Type 2 diabetes mellitus with diabetic neuropathy, unspecified; E11.22 Type 2 diabetes mellitus with diabetic chronic kidney disease; I25.10 Atherosclerotic heart disease of native coronary artery without angina pectoris; I12.9 Hypertensive chronic kidney disease with stage 1 through stage 4 chronic kidney disease, or unspecified chronic kidney disease; Z87.891 Personal history of nicotine dependence
CPT/HCPCS: 36415; 80061; 82962; A6257; G0378; J1815; J2250

== ENCOUNTER → 2019-02-20 | Outpatient (CLI) | payer OTHER | END | disposition home or self-care (01) | LOC: XY 08:27 | PROVIDERS: ATTEND Internal Medicine | DX: I73.9 Peripheral vascular disease, unspecified (principal); R60.0 Localized edema | CPT/HCPCS: 93925; 93970 ==

== ENCOUNTER → 2019-04-15 | Outpatient (CLI) | payer OTHER | END | disposition home or self-care (01) | LOC: LAB 10:01 | PROVIDERS: ATTEND Internal Medicine Cardiovascular Disease | DX: R94.4 Abnormal results of kidney function studies (principal) | CPT/HCPCS: 36415; 82565 ==

== ENCOUNTER → 2019-04-16 | Outpatient (CLI) | payer OTHER ==
[~2019-04-16] MED LIST changes: +IOHEXOL 350 MG/ML 100ML IJ ONE
== END | disposition home or self-care (01) ==
LOC: Rad HDHVI 08:13
PROVIDERS: ATTEND Internal Medicine Cardiovascular Disease
DX: I70.0 Atherosclerosis of aorta (principal); I77.1 Stricture of artery; I73.9 Peripheral vascular disease, unspecified; M79.605 Pain in left leg
CPT/HCPCS: 75635; Q9967

== ENCOUNTER 2019-04-29 16:12 | Inpatient (IN) | payer OTHER ==
[~2019-04-29] VITALS: Ht 175.3 cm; Wt 91.2 kg
--- NOTE | 2019-04-29 14:30 | NUR ---
Called and spoke to Dr. Scott, doctor informed that pt was admitted to room 212 A, requested admit order, as per doctor he will be up here to see pt.
[~2019-04-29 16:12] MED LIST changes: -AMIT25TA9 PO; -EMPA1TAB PO; -ESOM20CA PO; -ROSU5TAB5 PO; -TRAM50TA2 PO
[2019-04-29 17:00] VITALS: BP 124/65
[2019-04-29 17:05] VITALS: BP 124/65
--- NOTE | 2019-04-29 17:15 | NUR ---
Direct admit from Dr. Scott's office DEION,BOBBY admitted to Telemetry unit after SBAR received. Patient oriented to Rebecca Poon, primary RN, unit, room 212 A, bed, and unit policies regarding patient care and visiting hours. Patient weighed by bedscale and encouraged to call if they need something. All questions and concerns addressed, patient verbalized understanding. Will call Dr. Scott for admit order.
--- NOTE | 2019-04-29 17:45 | NUR ---
Dr. Scott at bed side to see pt, doctor discussed the plan of care with pt and pt's .
--- NOTE | 2019-04-29 17:50 | NUR ---
IV insertion IV access obtained, via clean sterile technique by inserting 20 gauge catheter at rt forearm after one attempt. IV secured properly. No trauma to site. Patient tolerated well.
[2019-04-29] MEDS ORDERED: ROSU5TAB5 PO (17:58)
[2019-04-29] MEDS ORDERED: EMPA1TAB PO (18:00)
[2019-04-29] MEDS ORDERED: TRAM50TA2 PO (18:00)
[2019-04-29] MEDS: ERGOCALCIFEROL 50,000 UNIT(1.25MG) CAP PO SCH ×2 (18:00→19:23)
[2019-04-29] MEDS ORDERED: HEPARIN SODIUM (PORCINE) 5000 UNITS/ML 1ML VIAL IV ONE (18:00)
[2019-04-29] MEDS ORDERED: AMIT25TA9 PO (18:00)
[2019-04-29] MEDS ORDERED: ESOM20CA PO (18:00)
[2019-04-29] MEDS ORDERED: DEXTROSE (50%) 50ML SYRG IV PRN (18:00)
[2019-04-29] MEDS: InsuLIN REG 1unit/0.01ml Soln (100units/ml) SC SCH (18:00)
--- NOTE | 2019-04-29 18:10 | NUR ---
Placed pt on tele monitor, tele 41 at sinus tach at 103.
[2019-04-29] MEDS ORDERED: DOCUSATE SOD 100 MG CAP PO PRN (18:15)
[2019-04-29] MEDS ORDERED: ACETAMINOPHEN 325 MG TAB PO PRN (18:15)
[2019-04-29] MEDS ORDERED: MORPHINE SULF INJ 2 MG/ML SYRINGE 1ML IV PRN (18:15)
[2019-04-29] MEDS ORDERED: TEMAZEPAM 15 MG CAP PO PRN (18:15)
[2019-04-29] MEDS ORDERED: ONDANSETRON HCL 4 MG/2 ML VIAL IV PRN (18:15)
[2019-04-29] MEDS ORDERED: NITROGLYCERIN 0.4 MG SL TAB SL PRN (18:15)
[2019-04-29] MEDS ORDERED: ALUM & MAG HYDROX-SIMETH LIQ(MAALOX) 30 ML PO PRN (18:15)
[2019-04-29] MEDS: ACCU-CHEK COMFORT CURVE STRIP VI SCH (18:28)
[2019-04-29] MEDS: SODIUM CHLORIDE 0.9% 1,000 ML IV SCH (18:37)
--- NOTE | 2019-04-29 19:30 | NUR ---
Opening Shift Note Assumed care of patient, awake and alert. No S/S of distress/SOB or pain. Instructed on POC and to call for assist PRN. Bed in lowest locked position, call light within reach, side rails up x2, fall precautions in place. Will continue to monitor for changes Q1hr and PRN.
[2019-04-29 20:50] LABS: INR 0.99 (0.9-1.15); Partial Thromboplastin Time 27.9 sec (23.64-32.05)
[2019-04-29] MEDS: HEPARIN DRIP/D5W 100UNITS/ML 250 ML IV SCH (21:35)
[2019-04-29 22:00] VITALS: BP 105/59
[2019-04-30] MEDS: ACCU-CHEK COMFORT CURVE STRIP VI SCH ×5 (00:16→23:44)
[2019-04-30 00:57] LABS: Basophils # (auto) 0.1 uL; Eosinophils # (auto) 0.5 uL; Eosinophils % (auto) 6.8 % (0.0-7.0); Monocytes # (auto) 0.5 uL; Neutrophils # (auto) 4.2 uL; Nucleated Red Blood Cells % 0.1 %
[2019-04-30 00:59] LABS: Hematocrit 37.9 % (41.0-53.0); Hemoglobin 12.3 g/dL (13.5-17.5); Lymphocytes # (auto) 1.4 uL; Lymphocytes % (auto) 21.5 % (10.0-50.0); Mean Corpuscular Hgb Conc. 32.4 g/dL (32.0-36.0); Mean Corpuscular Volume 74.1 fL (80.0-100.0); Monocytes % (auto) 7.5 % (0.0-12.0); Neutrophils % (auto) 63.2 % (37.0-80.0); Platelet Count (auto) 176 10^3/uL (140-450); Red Blood Cells 5.12 10^6/uL (4.5-5.90); Red Cell Distribution Width 18.5 % (11.8-14.3); White Blood Cell 6.6 10^3/uL (4.4-10.8)
[2019-04-30] MEDS: SODIUM CHLORIDE 0.9% 1,000 ML IV SCH ×3 (01:40→16:43)
[2019-04-30 04:04] LABS: Basophils # (auto) 0.2 uL; Basophils % (auto) 2.7 % (0.0-2.0); Eosinophils # (auto) 0.5 uL; Hematocrit 37.8 % (41.0-53.0); Hemoglobin 12.2 g/dL (13.5-17.5); Lymphocytes # (auto) 0.9 uL; Lymphocytes % (auto) 14.6 % (10.0-50.0); Mean Corpuscular Hemoglobin 23.9 pg (28.0-32.0); Mean Corpuscular Hgb Conc. 32.3 g/dL (32.0-36.0); Monocytes # (auto) 0.3 uL; Monocytes % (auto) 5.7 % (0.0-12.0); Neutrophils # (auto) 4.1 uL; Nucleated Red Blood Cells % 0.2 %; Platelet Count (auto) 173 10^3/uL (140-450); Red Cell Distribution Width 18.3 % (11.8-14.3)
--- NOTE | 2019-04-30 04:15 | NUR ---
Heparin drip aPTT 33.6. Per protocol, bolus given and increased by 3ml. Heparin drip now running at 13ml/hr. Continue care.
[2019-04-30 04:25] LABS: INR 1.01 (0.9-1.15); Partial Thromboplastin Time 33.6 sec (23.64-32.05)
[2019-04-30 05:46] VITALS: BP 106/57
[2019-04-30 06:01] LABS: Albumin 3.6 g/dL (3.4-5.0); Magnesium 2.5 mg/dL (1.6-2.6); Potassium 4.8 mmol/L (3.5-5.1)
[2019-04-30 06:04] LABS: BUN/Creatinine Ratio 14.3; Bilirubin, Total 0.4 mg/dL (0.2-1.0); Total Protein 6.9 g/dL (6.4-8.2)
[2019-04-30] MEDS: InsuLIN REG 1unit/0.01ml Soln (100units/ml) SC SCH ×5 (06:48→23:44)
[2019-04-30 08:00] VITALS: BP 104/62
--- NOTE | 2019-04-30 08:00 | NUR ---
Opening Shift Note Assumed care of patient, awake and alert. No S/S of distress/SOB or pain. Instructed on POC and to call for assist PRN with call light within reach. Bed in low and locked position. Heparin drip running at 13ml/hr, no s/s of bleeding or bruising. Will continue to monitor for changes Q1hr and PRN.
[2019-04-30 09:00] VITALS: BP 104/62
[2019-04-30 09:36] LABS: INR 1.02 (0.9-1.15); Partial Thromboplastin Time 36.7 sec (23.64-32.05)
[2019-04-30 10:14] LABS: Urine Bacteria NONE SEEN /hpf (None Seen); Urine Blood Negative /uL (Negative); Urine Specific Gravity 1.011 (1.001-1.035); Urine WBC <1 /hpf (0 - 3)
[2019-04-30 10:19] LABS: Folate (Folic Acid) > 24.00 ng/mL (5.38-24)
[2019-04-30 10:25] LABS: Creatinine, Urine 66 mg/dL (30.0-125.0); Sodium Urine 61 mmol/L (40-220)
[2019-04-30] MEDS: ERGOCALCIFEROL 50,000 UNIT(1.25MG) CAP PO SCH (10:27)
--- NOTE | 2019-04-30 10:45 | NUR ---
Dr. Scott at bed side to see pt, doctor discussed plan of care with pt and pt's .
--- NOTE | 2019-04-30 12:30 | NUR ---
Received call from catheterization laboratory technician to inform that pt's procedure has been re-schedule for tomorrow 05/01/2019 at 0900, and that Dr. Baum had placed orders to obtain consents, pt informed.
[2019-04-30 13:00] VITALS: BP 139/74
[2019-04-30] MEDS: HYDROcodone-ACET 5/325MG TAB PO PRN (14:51)
--- NOTE | 2019-04-30 15:30 | NUR ---
Call lab to draw pt's PTT level.
--- NOTE | 2019-04-30 16:22 | NUR ---
Called lab to inquire on PTT results, as per chemical laboratory assistant the results will be release now.
[2019-04-30 16:23] LABS: INR 0.99 (0.9-1.15); Partial Thromboplastin Time 40.2 sec (23.64-32.05)
[2019-04-30] MEDS: HEPARIN DRIP/D5W 100UNITS/ML 250 ML IV SCH (16:23)
[2019-04-30 17:00] VITALS: BP 118/68
--- NOTE | 2019-04-30 19:35 | NUR ---
Opening Shift Note Assumed care of patient, awake and alert. No S/S of distress/SOB or pain. Patient on heparin drip at 17ml/hr. Next PTT draw is for 2240. Bed locked in lowest position, side rails upx2, call light within reach. Instructed on POC and to call for assist PRN, will continue to monitor for changes Q1hr and PRN.
[2019-04-30 22:24] VITALS: BP 113/70
--- NOTE | 2019-04-30 23:26 | NUR ---
Called lab regarding PTT results, lab states that it is still in the analyzer and should be done within 10 minutes.
[2019-04-30 23:31] LABS: INR 0.98 (0.9-1.15); Partial Thromboplastin Time 47.8 sec (23.64-32.05)
--- NOTE | 2019-04-30 23:40 | NUR ---
Patient's PTT level is 47.8. No bolus and increase to 2ml/hr according to heparin protocol. Heparin drip is now at 19ml/hr. Will continue to monitor.
[2019-05-01] MEDS: SODIUM CHLORIDE 0.9% 1,000 ML IV SCH ×3 (02:00→17:11)
[2019-05-01 05:39] VITALS: BP 122/77
[2019-05-01] MEDS: ACCU-CHEK COMFORT CURVE STRIP VI SCH ×4 (06:27→23:45)
[2019-05-01] MEDS: InsuLIN REG 1unit/0.01ml Soln (100units/ml) SC SCH ×4 (06:27→23:45)
[2019-05-01 06:47] LABS: Calcium 9.3 mg/dL (8.5-10.1); Potassium 4.5 mmol/L (3.5-5.1)
[2019-05-01 06:50] LABS: INR 1.04 (0.9-1.15); Partial Thromboplastin Time 63.7 sec (23.64-32.05)
[2019-05-01 06:53] LABS: Basophils # (auto) 0.1 uL; Eosinophils # (auto) 0.4 uL; Neutrophils # (auto) 3.7 uL; Nucleated Red Blood Cells % 0.1 %; White Blood Cell 5.6 10^3/uL (4.4-10.8)
[2019-05-01 06:59] LABS: Basophils % (auto) 0.9 % (0.0-2.0); Eosinophils % (auto) 7.1 % (0.0-7.0); Hematocrit 40.4 % (41.0-53.0); Hemoglobin 13.2 g/dL (13.5-17.5); Lymphocytes % (auto) 18.7 % (10.0-50.0); Mean Corpuscular Hemoglobin 24.2 pg (28.0-32.0); Mean Corpuscular Hgb Conc. 32.7 g/dL (32.0-36.0); Monocytes # (auto) 0.5 uL; Monocytes % (auto) 8.1 % (0.0-12.0); Neutrophils % (auto) 65.2 % (37.0-80.0); Platelet Count (auto) 176 10^3/uL (140-450); Red Blood Cells 5.46 10^6/uL (4.5-5.90); Red Cell Distribution Width 18.2 % (11.8-14.3)
[2019-05-01] MEDS: HEPARIN DRIP/D5W 100UNITS/ML 250 ML IV SCH ×4 (07:01→19:45)
--- NOTE | 2019-05-01 08:00 | NUR ---
OPENING NOTE PATIENT IN BED LOW LOCK POSITION. CALL LIGHT IN REACH. HEPARIN DRIP RUNNING PER PROTOCOL. PATIENT NPO PENDING PROCEDURE TODAY. PATIENT FAMILY AT BEDSIDE. WILL CONTINUE CARE.
--- NOTE | 2019-05-01 08:20 | NUR ---
PATIENT TAKEN TO HUMAN RESOURCES HR REPRESENTATIVE WITH HEPARIN DRIP. HUMAN RESOURCES HR REPRESENTATIVE AWARE. NO S/S OF DISTRESS.
[2019-05-01] MEDS ORDERED: LIDOCAINE 2%HCL (LOCAL ANESTH.) INJ 20ML MDV ONE (08:39)
[2019-05-01] MEDS ORDERED: IOHEXOL 350 MG/ML 100ML IJ ONE (08:40)
[2019-05-01] MEDS ORDERED: MIDAZOLAM HCL 1MG/1ML-2 ML VIAL ONE (08:54)
[2019-05-01] MEDS ORDERED: SODIUM CHL 0.9% 0 ML ONE (08:54)
[2019-05-01] MEDS ORDERED: ANGIOMAX 250 MG VIAL IV ONE (08:54)
[2019-05-01] MEDS ORDERED: fentaNYL CITRATE 100 MCG/2 ML VL ONE (08:54)
[2019-05-01 09:00] VITALS: BP 103/70
[2019-05-01] MEDS: ROSUVASTATIN 5 MG PO SCH (10:00)
[2019-05-01] MEDS ORDERED: EPTIFIBATIDE INJ (2MG/ML) 10ML VIAL IV ONE ×2 (10:04→10:13)
[2019-05-01] MEDS ORDERED: CLOPIDOGREL 300 MG TAB ONE (10:19)
[2019-05-01] MEDS ORDERED: ATROPINE SULFATE 1 MG/1 ML VIAL ONE (10:23)
[2019-05-01] MEDS ORDERED: ONDANSETRON HCL 4 MG/2 ML VIAL ONE (10:23)
[2019-05-01] MEDS ORDERED: ONDANSETRON HCL 4 MG/2 ML VIAL IV PRN (10:45)
--- NOTE | 2019-05-01 11:12 | NUR ---
post cath procedure Right DP/PT pulses obtained by doppler Left DP/PT pulses as per baseline (normal) Left groin benign, no bleeding/hematoma; dressing in place.
--- NOTE | 2019-05-01 11:40 | NUR ---
PATIENT BACK IN BED S/P ORTHO/PROSTHETIC AIDE. RECEIVED REPORT, PATIENT FLAT TIME UNTIL 1600. PATIENT PLACED ON OXYGEN. VITALS STABLE, SEE INTERVENTIONS. PATIENT RETURN FROM ORTHO/PROSTHETIC AIDE WITH IV TO LEFT WRIST 20 GAUGE. HEPARIN DRIP RUNNING. NO S/S OF DISTRESS. WILL CONTINUE CARE.
[2019-05-01 11:45] VITALS: BP 118/71
--- NOTE | 2019-05-01 11:53 | NUR ---
CALLED LAB FOR STAT LAB ORDERS. WILL CONTINUE CARE.
--- NOTE | 2019-05-01 13:02 | NUR ---
PAGED LAB FOR STAT ORDERS, AWAITING CALL BACK.
[2019-05-01 13:29] LABS: INR 1.03 (0.9-1.15); Partial Thromboplastin Time 66.2 sec (23.64-32.05)
[2019-05-01 13:30] VITALS: BP 144/82
--- NOTE | 2019-05-01 13:36 | NUR ---
PATIENT APTT 66.2 HEPARIN NO CHANGE NEEDED PER PROTOCOL. WILL CONTINUE CARE.
[2019-05-01] MEDS: HYDROcodone-ACET 5/325MG TAB PO PRN ×3 (13:52→23:45)
[2019-05-01 17:00] VITALS: BP 131/77
[2019-05-01 19:23] LABS: INR 1.02 (0.9-1.15); Partial Thromboplastin Time 65.3 sec (23.64-32.05)
--- NOTE | 2019-05-01 19:40 | NUR ---
Opening Shift Note Assumed care of patient, awake and alert. No S/S of distress/SOB or pain. Patient on heparin drip at 19ml/hr. Left groin dressing is clean, dry and intact, no bleeding or hematoma noted. Bed locked in lowest position, side rails upx2, call light within reach. Instructed on POC and to call for assist PRN, will continue to monitor for changes Q1hr and PRN.
--- NOTE | 2019-05-01 19:51 | NUR ---
Patient's PTT is 65.3. New bag administered, no bolus and no change per heparin protocol running at 19ml/hr.
[2019-05-01 22:13] VITALS: BP 146/80
[2019-05-02 05:38] VITALS: BP 133/77
[2019-05-02] MEDS: ACCU-CHEK COMFORT CURVE STRIP VI SCH ×3 (06:19→18:14)
[2019-05-02] MEDS: SODIUM CHLORIDE 0.9% 1,000 ML IV SCH ×3 (06:19→18:15)
[2019-05-02] MEDS: InsuLIN REG 1unit/0.01ml Soln (100units/ml) SC SCH ×3 (06:19→18:14)
[2019-05-02] MEDS: HYDROcodone-ACET 5/325MG TAB PO PRN (06:25)
[2019-05-02 08:00] VITALS: BP 141/77
[2019-05-02] MEDS ORDERED: CLOPIDOGREL BISULFATE 75 MG TAB PO SCH (10:00)
[2019-05-02 10:11] LABS: INR 1.01 (0.9-1.15); Partial Thromboplastin Time 26.4 sec (23.64-32.05)
[2019-05-02 10:14] LABS: BUN/Creatinine Ratio 13.5; Basophils # (auto) 0 uL; Calcium 8.6 mg/dL (8.5-10.1); Eosinophils # (auto) 0.3 uL; Lymphocytes # (auto) 0.6 uL; Mean Corpuscular Volume 74.4 fL (80.0-100.0); Monocytes # (auto) 0.3 uL; Neutrophils # (auto) 4.4 uL; Potassium 4.6 mmol/L (3.5-5.1)
[2019-05-02 10:16] LABS: Basophils % (auto) 0.7 % (0.0-2.0); Eosinophils % (auto) 5.6 % (0.0-7.0); Hematocrit 37.5 % (41.0-53.0); Hemoglobin 12.3 g/dL (13.5-17.5); Lymphocytes % (auto) 10.3 % (10.0-50.0); Mean Corpuscular Hemoglobin 24.3 pg (28.0-32.0); Mean Corpuscular Hgb Conc. 32.7 g/dL (32.0-36.0); Monocytes % (auto) 5.9 % (0.0-12.0); Neutrophils % (auto) 77.5 % (37.0-80.0); Platelet Count (auto) 168 10^3/uL (140-450); Red Blood Cells 5.04 10^6/uL (4.5-5.90); Red Cell Distribution Width 18.4 % (11.8-14.3); White Blood Cell 5.7 10^3/uL (4.4-10.8)
[2019-05-02] MEDS: ROSUVASTATIN 5 MG PO SCH (10:24)
[2019-05-02 12:00] VITALS: BP 133/70
--- NOTE | 2019-05-02 13:30 | NUR ---
Heparin drip resumed.
[2019-05-02] MEDS: HEPARIN DRIP/D5W 100UNITS/ML 250 ML IV SCH (13:42)
[2019-05-02 17:00] VITALS: BP 132/71
--- NOTE | 2019-05-02 19:30 | NUR ---
Report received from NINFA Dubois.
--- NOTE | 2019-05-02 19:45 | NUR ---
Opening Shift Note Assumed care of patient, awake and alert. No S/S of distress/SOB or pain. Patient on heparin drip at 19 ml/hr. PTT result is 53.2. No changes in heparin drip per protocol. Instructed on POC and to call for assist PRN, will continue to monitor for changes Q1hr and PRN.
[2019-05-02 19:48] LABS: INR 0.99 (0.9-1.15); Partial Thromboplastin Time 53.2 sec (23.64-32.05)
[2019-05-02 22:00] VITALS: BP 152/75
[2019-05-03] MEDS: ACCU-CHEK COMFORT CURVE STRIP VI SCH ×2 (00:52→06:26)
[2019-05-03] MEDS: InsuLIN REG 1unit/0.01ml Soln (100units/ml) SC SCH ×2 (00:52→06:26)
--- NOTE | 2019-05-03 02:00 | NUR ---
Stogie Packer at bedside to draw PT,PTT,INR per protocol for heparin drip. Care continued.
--- NOTE | 2019-05-03 02:40 | NUR ---
No results yet for PT,PTT,INR. Called lab, Advised to wait for about 15 minutes.
[2019-05-03 03:00] LABS: INR 1.02 (0.9-1.15)
[2019-05-03 03:06] LABS: Partial Thromboplastin Time 72.7 sec (23.64-32.05)
--- NOTE | 2019-05-03 03:07 | NUR ---
Natalia Keen from lab called regarding PTT of 72.7. Patient on heparin drip. No changes on the heparin per protocol. Care continued.
[2019-05-03] MEDS: SODIUM CHLORIDE 0.9% 1,000 ML IV SCH (03:20)
[2019-05-03] MEDS: HEPARIN DRIP/D5W 100UNITS/ML 250 ML IV SCH (03:20)
[2019-05-03 04:57] VITALS: BP 128/70
[2019-05-03 08:00] VITALS: BP 135/72
--- NOTE | 2019-05-03 08:27 | NUR ---
Heparin drip Per Dr. Baum. Discontinue heparin drip. Start xarelto 2.5mg po qd. Clear do discharge. Will continue to monitor.
[2019-05-03] MEDS ORDERED: RIVAROXABAN 10 MG TAB PO SCH ×2 (10:00)
[2019-05-03 11:36] VITALS: BP 135/72
--- NOTE | 2019-05-03 12:12 | NUR ---
Discharge note Discharge instructions given as ordered. Encourage to follow up with PMD as instructed. All questions and concerns addressed. Patient verbalized understanding. Home medications held in Pharmacy returned to patient. IV removed with catheter intact, pressure dressing applied. Telemetry unit returned to ICU. Patient taken to vehicle via wheelchair with all personal belongings, accompanied by staff and family member. No distress noted at time of departure.
== END 2019-05-03 12:10 | disposition home or self-care (01) | DRG 272 ==
LOC: TELE-CENTR 16:12 → CENTRAL 04-30 08:45 → TELE-CENTR 04-30 08:47
PROVIDERS: ADMIT Internal Medicine; ATTEND Internal Medicine
PROC: 04CK3ZZ Extirpation of Matter from Right Femoral Artery, Percutaneous Approach (ICD-10-PCS; principal; 2019-05-01)
PROC: 04CM3ZZ Extirpation of Matter from Right Popliteal Artery, Percutaneous Approach (ICD-10-PCS; 2019-05-01)
PROC: 04CP3ZZ Extirpation of Matter from Right Anterior Tibial Artery, Percutaneous Approach (ICD-10-PCS; 2019-05-01)
PROC: 04CR3ZZ Extirpation of Matter from Right Posterior Tibial Artery, Percutaneous Approach (ICD-10-PCS; 2019-05-01)
PROC: 04CT3ZZ Extirpation of Matter from Right Peroneal Artery, Percutaneous Approach (ICD-10-PCS; 2019-05-01)
PROC: 047M3Z1 Dilation of Right Popliteal Artery using Drug-Coated Balloon, Percutaneous Approach (ICD-10-PCS; 2019-05-01)
PROC: 047K3Z1 Dilation of Right Femoral Artery using Drug-Coated Balloon, Percutaneous Approach (ICD-10-PCS; 2019-05-01)
PROC: 047H3Z1 Dilation of Right External Iliac Artery using Drug-Coated Balloon, Percutaneous Approach (ICD-10-PCS; 2019-05-01)
PROC: 3E053PZ Introduction of Platelet Inhibitor into Peripheral Artery, Percutaneous Approach (ICD-10-PCS; 2019-05-01)
PROC: B41G1ZZ Fluoroscopy of Left Lower Extremity Arteries using Low Osmolar Contrast (ICD-10-PCS; 2019-05-01)
PROC: B41F1ZZ Fluoroscopy of Right Lower Extremity Arteries using Low Osmolar Contrast (ICD-10-PCS; 2019-05-01)
DX: E11.51 Type 2 diabetes mellitus with diabetic peripheral angiopathy without gangrene (principal); N18.3 Chronic kidney disease, stage 3 (moderate); E11.22 Type 2 diabetes mellitus with diabetic chronic kidney disease; I12.9 Hypertensive chronic kidney disease with stage 1 through stage 4 chronic kidney disease, or unspecified chronic kidney disease; E78.5 Hyperlipidemia, unspecified; K86.9 Disease of pancreas, unspecified; Z79.01 Long term (current) use of anticoagulants; Z79.4 Long term (current) use of insulin; Z88.8 Allergy status to other drugs, medicaments and biological substances
CPT/HCPCS: 36415; 80048; 80053; 81001; 82570; 82607; 82746; 82962; 83036; 83735; 83970; 84300; 85025; 85610; 85730; 86301; 99152; G0378; J0461; J1815; J2250; J2405

== ENCOUNTER → 2019-04-29 | Outpatient (CLI) | payer OTHER ==
[~2019-04-29] MED LIST changes: +AMIT25TA9 PO; +EMPA1TAB PO; +ESOM20CA PO; -IOHEXOL 350 MG/ML 100ML IJ ONE; +ROSU5TAB5 PO; +TRAM50TA2 PO
[2019-04-29 15:37] LABS: Basophils # (auto) 0.1 uL; Eosinophils # (auto) 0.4 uL; Lymphocytes # (auto) 1.1 uL; Mean Corpuscular Hgb Conc. 32.3 g/dL (32.0-36.0)
[2019-04-29 15:39] LABS: Eosinophils % (auto) 5.2 % (0.0-7.0); Hematocrit 42.2 % (41.0-53.0); Hemoglobin 13.6 g/dL (13.5-17.5); Lymphocytes % (auto) 13.8 % (10.0-50.0); Mean Corpuscular Volume 74.3 fL (80.0-100.0); Monocytes # (auto) 0.7 uL; Monocytes % (auto) 8.1 % (0.0-12.0); Neutrophils # (auto) 5.8 uL; Neutrophils % (auto) 71.9 % (37.0-80.0); Nucleated Red Blood Cells % 0.1 %; Platelet Count (auto) 217 10^3/uL (140-450); Red Blood Cells 5.68 10^6/uL (4.5-5.90); Red Cell Distribution Width 18.5 % (11.8-14.3); White Blood Cell 8.1 10^3/uL (4.4-10.8)
[2019-04-29 16:07] LABS: Alanine Aminotransferase 27 U/L (16-61); Albumin 4.1 g/dL (3.4-5.0); Anion Gap 9 (5-15); Aspartate Aminotransferase 17 U/L (15-37); Blood Urea Nitrogen 24 mg/dL (7-18); Calcium 9.7 mg/dL (8.5-10.1); Carbon Dioxide 25 mmol/L (21-32); Chloride 104 mmol/L (98-107); GFR African American 47 mL/min; GFR Non-African American 39 mL/min; Glucose 84 mg/dL (74-106); Potassium 4.2 mmol/L (3.5-5.1); Sodium 138 mmol/L (136-145)
[2019-04-29 16:11] LABS: Alkaline Phosphatase 82 U/L (45-117); Bilirubin, Total 0.4 mg/dL (0.2-1.0); Cholesterol 154 mg/dL (< 200); HDL Cholesterol 25 mg/dL (40-59); Triglycerides 612 mg/dL (< 150)
== END | disposition home or self-care (01) ==
LOC: LAB 15:13
PROVIDERS: ATTEND Internal Medicine
DX: I10 Essential (primary) hypertension (principal); E11.9 Type 2 diabetes mellitus without complications
CPT/HCPCS: 36415; 80053; 80061; 83036; 85025

== ENCOUNTER → 2019-05-06 | Outpatient (CLI) | payer OTHER ==
[~2019-05-06] MED LIST changes: -ALPH300C PO; +AMIT25TA9 PO; +EMPA1TAB PO; +ESOM20CA PO; -ROSU40TA PO; +ROSU5TAB5 PO; +TRAM50TA2 PO
[2019-05-06 16:32] LABS: Alcohol, Urine < 3.0 mg/dL (0-5); Amphetamine Screen, Urine NEGATIVE (NEGATIVE); Barbiturate Scree,Urine NEGATIVE (NEGATIVE); Benzodiazephine Screen, Urine NEGATIVE (NEGATIVE); Cannabinoid Screen, Urine NEGATIVE (NEGATIVE); Cocaine Screen, Urine NEGATIVE (NEGATIVE); Opiate Scree,Urine NEGATIVE (NEGATIVE); Phencyclidine Screen, Urine NEGATIVE (NEGATIVE)
== END | disposition home or self-care (01) ==
LOC: LAB 15:44
PROVIDERS: ATTEND Psychiatry & Neurology Neurology
DX: G90.50 Complex regional pain syndrome I, unspecified (principal)
CPT/HCPCS: 80307

== ENCOUNTER → 2019-11-07 | Outpatient (CLI) | payer OTHER ==
[2019-11-07 09:09] LABS: Urine WBC None Seen /hpf (0 - 3)
[2019-11-07 09:14] LABS: Basophils # (auto) 0.1 uL; Eosinophils # (auto) 0.4 uL; Lymphocytes # (auto) 0.7 uL; Monocytes # (auto) 0.4 uL; Neutrophils # (auto) 3.7 uL
[2019-11-07 09:16] LABS: Basophils % (auto) 1.3 % (0.0-2.0); Eosinophils % (auto) 7.1 % (0.0-7.0); Hematocrit 39.9 % (41.0-53.0); Hemoglobin 12.9 g/dL (13.5-17.5); Lymphocytes % (auto) 13.3 % (10.0-50.0); Mean Corpuscular Hgb Conc. 32.4 g/dL (32.0-36.0); Mean Corpuscular Volume 74.2 fL (80.0-100.0); Monocytes % (auto) 7.1 % (0.0-12.0); Neutrophils % (auto) 71.2 % (37.0-80.0); Platelet Count (auto) 157 10^3/uL (140-450); Red Blood Cells 5.37 10^6/uL (4.5-5.90); Red Cell Distribution Width 19.2 % (11.8-14.3); White Blood Cell 5.3 10^3/uL (4.4-10.8)
[2019-11-07 09:45] LABS: Urine Bacteria NONE SEEN /hpf (None Seen); Urine Blood Negative /uL (Negative); Urine Specific Gravity 1.021 (1.001-1.035)
[2019-11-07 10:19] LABS: Chloride 111 mmol/L (98-107); Potassium 4.2 mmol/L (3.5-5.1); Sodium 142 mmol/L (136-145)
[2019-11-07 10:28] LABS: Alanine Aminotransferase 18 U/L (16-61); Albumin 3.8 g/dL (3.4-5.0); Alkaline Phosphatase 79 U/L (45-117); Anion Gap 5 (5-15); Aspartate Aminotransferase 12 U/L (15-37); BUN/Creatinine Ratio 13.3; Bilirubin, Total 0.3 mg/dL (0.2-1.0); Blood Urea Nitrogen 18 mg/dL (7-18); Calcium 9.1 mg/dL (8.5-10.1); Carbon Dioxide 26 mmol/L (21-32); Cholesterol 133 mg/dL (< 200); GFR African American 67 mL/min; GFR Non-African American 56 mL/min; Glucose 123 mg/dL (74-106); HDL Cholesterol 23 mg/dL (40-59); Total Protein 7.3 g/dL (6.4-8.2); Triglycerides 571 mg/dL (< 150)
== END | disposition home or self-care (01) ==
LOC: LAB 08:45
PROVIDERS: ATTEND Internal Medicine
DX: E11.22 Type 2 diabetes mellitus with diabetic chronic kidney disease (principal); N18.9 Chronic kidney disease, unspecified
CPT/HCPCS: 36415; 80053; 80061; 81001; 82043; 83036; 84153; 85025

== ENCOUNTER → 2019-12-18 | Outpatient (CLI) | payer OTHER | END | disposition home or self-care (01) | LOC: LAB 16:00 | PROVIDERS: ATTEND Urology | DX: N39.0 Urinary tract infection, site not specified (principal) | CPT/HCPCS: 87086 ==

== ENCOUNTER → 2020-01-26 | Outpatient (CLI) | payer OTHER ==
[2020-01-26 12:09] LABS: Basophils # (auto) 0.1 10 ^3/uL (0-0.2); Eosinophils # (auto) 0.4 10 ^3/uL (0-0.8); Lymphocytes # (auto) 0.9 10 ^3/uL (0.4-5.4); Monocytes # (auto) 0.4 10 ^3/uL (0-1.3); Red Blood Cells 5.48 10^6/uL (4.5-5.90); Red Cell Distribution Width 17.9 % (11.8-14.3)
[2020-01-26 12:10] LABS: Basophils % (auto) 1.1 % (0.0-2.0); Eosinophils % (auto) 6.4 % (0.0-7.0); Hematocrit 40.3 % (41.0-53.0); Lymphocytes % (auto) 13.4 % (10.0-50.0); Mean Corpuscular Hemoglobin 23.6 pg (28.0-32.0); Mean Corpuscular Hgb Conc. 32.2 g/dL (32.0-36.0); Mean Corpuscular Volume 73.5 fL (80.0-100.0); Monocytes % (auto) 6.8 % (0.0-12.0); Neutrophils # (auto) 4.6 10 ^3/uL (1.6-8.6); Neutrophils % (auto) 72.3 % (37.0-80.0); White Blood Cell 6.4 10^3/uL (4.4-10.8)
[2020-01-26 12:11] LABS: Platelet Count (auto) 167 10^3/uL (140-450)
[2020-01-26 12:12] LABS: Urine Bacteria NONE SEEN /hpf (None Seen); Urine Blood Negative /uL (Negative); Urine WBC 1 /hpf (0 - 3)
[2020-01-26 12:33] LABS: Albumin 3.8 g/dL (3.4-5.0); Potassium 3.8 mmol/L (3.5-5.1)
[2020-01-26 12:37] LABS: Bilirubin, Total 0.3 mg/dL (0.2-1.0); Total Protein 7.6 g/dL (6.4-8.2)
== END | disposition home or self-care (01) ==
LOC: LAB 11:44
PROVIDERS: ATTEND Internal Medicine
DX: E11.22 Type 2 diabetes mellitus with diabetic chronic kidney disease (principal); N18.9 Chronic kidney disease, unspecified; Z12.5 Encounter for screening for malignant neoplasm of prostate
CPT/HCPCS: 36415; 80053; 81001; 82043; 82274; 83036; 84153; 85025

== ENCOUNTER → 2020-04-28 | Day surgery (SDC) | payer OTHER ==
[2020-04-26 10:24] LABS: Basophils # (auto) 0.1 10 ^3/uL (0-0.2); Mean Corpuscular Hemoglobin 25.4 pg (28.0-32.0); Monocytes # (auto) 0.5 10 ^3/uL (0-1.3)
[2020-04-26 10:26] LABS: Eosinophils # (auto) 0.4 10 ^3/uL (0-0.8); Eosinophils % (auto) 6.3 % (0.0-7.0); Hematocrit 39.5 % (41.0-53.0); Hemoglobin 12.9 g/dL (13.5-17.5); Mean Corpuscular Hgb Conc. 32.7 g/dL (32.0-36.0); Mean Corpuscular Volume 77.7 fL (80.0-100.0); Monocytes % (auto) 6.7 % (0.0-12.0); Neutrophils # (auto) 4.9 10 ^3/uL (1.6-8.6); Nucleated Red Blood Cells % 0.1 %; Platelet Count (auto) 146 10^3/uL (140-450); Red Blood Cells 5.08 10^6/uL (4.5-5.90); Red Cell Distribution Width 18.4 % (11.8-14.3); White Blood Cell 6.8 10^3/uL (4.4-10.8)
[2020-04-26 10:45] LABS: INR 0.97 (0.9-1.15); Partial Thromboplastin Time 28.2 sec (23.64-32.05)
[~2020-04-28] VITALS: Ht 175.3 cm; Wt 90.7 kg
[~2020-04-28] MED LIST changes: -AMIT25TA9 PO; -EMPA1TAB PO; -ESOM20CA PO; +HYDRX10T PO; -METF-370 PO; +METF-372 PO; +MIDAZOLAM HCL 5 MG/ML-1ML VIAL ONE; +ROSU10TA16 PO; -ROSU5TAB5 PO; +SODIUM CHLORIDE LOCK 10 ML ONE; +TAM04C PO; -TRAM50TA2 PO; +TRIA0.1P11 TOP
[2020-04-28] MEDS: fentaNYL CITRATE 100 MCG/2 ML VL ONE ×3 (14:15→14:17)
[2020-04-28 15:45] VITALS: BP 133/70
== END | disposition home or self-care (01) ==
LOC: GI 13:01
PROVIDERS: ATTEND Internal Medicine Gastroenterology
DX: R19.4 Change in bowel habit (principal); D12.5 Benign neoplasm of sigmoid colon; K64.8 Other hemorrhoids; K63.89 Other specified diseases of intestine; Z11.59 Encounter for screening for other viral diseases
CPT/HCPCS: 36415; 45385; 82962; 85025; 85610; 85730; 88305; J2250; J3010; J7030; U0003; 99152

== ENCOUNTER 2020-05-13 03:41 | Inpatient (IN) | payer OTHER ==
[~2020-05-13] VITALS: Ht 175.3 cm; Wt 96.5 kg
[~2020-05-13 03:41] MED LIST changes: -HYDRX10T PO; -MIDAZOLAM HCL 5 MG/ML-1ML VIAL ONE; -SODIUM CHLORIDE LOCK 10 ML ONE; -TAM04C PO; -TRIA0.1P11 TOP
[2020-05-13] MEDS ORDERED: IPRATROPIUM BROM 0.5 MG/2.5ML INH SOL NEB PRN (04:00)
[2020-05-13] MEDS ORDERED: ALBUTEROL SULF 2.5 MG/0.5ML(0.5%) NEB SOLN NEB ONE (04:00)
[2020-05-13] MEDS ORDERED: cloNIDine HCL 0.1 MG TAB PO ONE (04:15)
[2020-05-13] MEDS ORDERED: IPRATROPIUM BROM 0.5 MG/2.5ML INH SOL NEB ONE (04:15)
[2020-05-13 04:36] LABS: Basophils # (auto) 0.1 10 ^3/uL (0-0.2); Basophils % (auto) 1.1 % (0.0-2.0); Eosinophils # (auto) 0.3 10 ^3/uL (0-0.8); Eosinophils % (auto) 4.7 % (0.0-7.0); Hematocrit 41.6 % (41.0-53.0); Hemoglobin 13.4 g/dL (13.5-17.5); Lymphocytes # (auto) 0.8 10 ^3/uL (0.4-5.4); Lymphocytes % (auto) 12.9 % (10.0-50.0); Mean Corpuscular Hgb Conc. 32.2 g/dL (32.0-36.0); Mean Corpuscular Volume 77.7 fL (80.0-100.0); Monocytes # (auto) 0.3 10 ^3/uL (0-1.3); Monocytes % (auto) 5.5 % (0.0-12.0); Neutrophils # (auto) 4.6 10 ^3/uL (1.6-8.6); Neutrophils % (auto) 75.8 % (37.0-80.0); Nucleated Red Blood Cells % 0.1 %; Platelet Count (auto) 162 10^3/uL (140-450); Red Blood Cells 5.36 10^6/uL (4.5-5.90); Red Cell Distribution Width 17.9 % (11.8-14.3); White Blood Cell 6.1 10^3/uL (4.4-10.8)
[2020-05-13 04:52] LABS: Calcium 8.6 mg/dL (8.5-10.1)
[2020-05-13 04:56] LABS: Bilirubin, Total 0.3 mg/dL (0.2-1.0); Total Protein 7.7 g/dL (6.4-8.2)
[2020-05-13 05:05] LABS: INR 0.98 (0.9-1.15); Partial Thromboplastin Time 26.2 sec (23.64-32.05)
[2020-05-13 05:17] LABS: Magnesium 2.2 mg/dL (1.6-2.6)
[2020-05-13] MEDS ORDERED: methylPREDNISolone SOD SUCC 125 MG/2 ML VL IV ONE (05:30)
[2020-05-13] MEDS ORDERED: SODIUM CHLORIDE 0.9% 1,000 ML IV SCH ×2 (09:15)
[2020-05-13] MEDS ORDERED: DEXTROSE (50%) 50ML SYRG IV PRN (09:15)
[2020-05-13] MEDS ORDERED: traMADol HCL 50 MG TAB PO PRN (09:15)
[2020-05-13] MEDS ORDERED: ONDANSETRON HCL 4 MG/2 ML VIAL IV PRN (09:15)
[2020-05-13] MEDS ORDERED: LACTULOSE 20Gm/30ML SOLN PO PRN (09:15)
[2020-05-13] MEDS ORDERED: TEMAZEPAM 15 MG CAP PO PRN (09:15)
[2020-05-13] MEDS ORDERED: NITROGLYCERIN 0.4 MG SL TAB SL PRN (09:15)
[2020-05-13] MEDS ORDERED: ACETAMINOPHEN 500 MG TAB PO PRN (09:15)
[2020-05-13] MEDS ORDERED: MORPHINE SULF INJ 2 MG/ML SYRINGE 1ML IV PRN ×2 (09:15)
[2020-05-13] MEDS ORDERED: cefTRIAXone 1GM/50ML D5W 50 ML IV ONE (09:45)
[2020-05-13] MEDS ORDERED: ENOXAPARIN SOD 40 MG/0.4 ML SYRINGE SC SCH (10:00)
[2020-05-13] MEDS ORDERED: BUDESONIDE (INHALATION) 180 MCG IH IN SCH (10:00)
[2020-05-13] MEDS ORDERED: ZINC SULFATE 220mg CAP or TAB PO SCH (10:00)
[2020-05-13] MEDS ORDERED: ASCORBIC ACID 1,000 MG TAB PO SCH (10:00)
[2020-05-13 10:20] VITALS: BP 141/74
--- NOTE | 2020-05-13 10:21 | NUR ---
Telemetry admit from ER DEIONBOBBY admitted to Telemetry unit after SBAR received. Patient oriented to Gloria Gill, primary RN, unit, room, bed, and unit policies regarding patient care and visiting hours. Patient now on continuous telemetry monitoring, tele box # 6 and telemetry reading on arrival to unit is . Patient placed on bedside oxygen, weighed by bedscale and encouraged to call if they need something. All questions and concerns addressed, patient verbalized understanding. Note:
--- NOTE | 2020-05-13 10:30 | NUR ---
ASSESSMENT NOTE PT ARRIVED FROM ER VIA WHEELCHAIR, ALERT ORIENTED X4, OXYGEN 4 L NC, SAT AT 99%, TO ROOM 232, PT IS ROLE OUT COVID 19, ABLE TO AMBULATE TO HIS BED, NO DISTRESS NOTED, ABLE TO VERBALIS HIS NEEDS, ROOM ORIENTATION GIVEN TO PT, CALL LIGHT WITHIN REACH
--- NOTE | 2020-05-13 11:00 | NUR ---
URINE SAMPLE SENT TO [facility]
[2020-05-13] MEDS: ASPirin 81 mg TAB PO SCH (11:22)
[2020-05-13] MEDS: DOXYCYCLINE 100 MG TAB/CAP PO SCH ×2 (11:23→21:45)
[2020-05-13] MEDS: CHOLECALCIFEROL (VITD3) 1,000UNIT=25mCg TAB PO SCH (11:23)
[2020-05-13] MEDS: ACCU-CHEK COMFORT CURVE STRIP VI SCH ×3 (11:24→21:38)
[2020-05-13 11:54] LABS: Urine Bacteria NONE SEEN /hpf (None Seen); Urine Blood Negative /uL (Negative); Urine Specific Gravity 1.034 (1.001-1.035); Urine WBC 1 /hpf (0 - 3)
[2020-05-13 12:00] VITALS: BP 134/65
[2020-05-13] MEDS: InsuLIN REG 1unit/0.01ml Soln (100units/ml) SC SCH ×3 (12:04→21:28)
[2020-05-13] MEDS ORDERED: TAM04C PO (12:49)
[2020-05-13] MEDS ORDERED: HYDRX10T PO (12:49)
[2020-05-13] MEDS ORDERED: TRIA0.1P11 TOP (12:49)
[2020-05-13] MEDS ORDERED: ALBUTEROL SULF HFA 90MCG INH 200DOSE IN SCH (14:00)
--- NOTE | 2020-05-13 15:50 | NUR ---
CHARGE NURSE CALLED, PT WILL BE TRANSFER TO 292B, SINCE PT HAS A NEGATIVE RESULTS
--- NOTE | 2020-05-13 16:12 | NUR ---
REPORT GIVEN TO DUY OCASIO, PT AWARE OF THE TRANSFER, HE IS PLANING TO LET HIS KNOW, CONTINUE CARE
--- NOTE | 2020-05-13 16:20 | NUR ---
PATIENT TRANSFER TO [facility] B VIA WHEEL CHAIR, OXYGEN 4 L NC, ALERT ORIENTED X4, NO DISTRESS NOTED, ALONG WITH ALL PATIENT'S BELONGING, INCLUDING HIS PERSONAL PHONE
--- NOTE | 2020-05-13 16:30 | NUR ---
Pt Arrived on Unit Pt arrived on unit from [facility]. Pt is a/ox4 with no s/s of distress or SOB. Pt is currently on 4L via MI. Safety measures initiated with call light within reach, bed in lowest position and side rails up. Will continue to monitor.
[2020-05-13 17:00] VITALS: BP 124/64
--- NOTE | 2020-05-13 18:19 | NUR ---
Pt off Unit for VQ Scan Taken to radiology for VQ scan via wheelchair. Addendum: 05/13/20 at 1848 by LIZA GILLETTE RN RN Pt back on unit. a/ox4 with no s/s of distress.
--- NOTE | 2020-05-13 18:50 | NUR ---
Requested New Tele Monitor Tele 6 was reading over on [facility]. Spoke to Rebecca in tele monitor station; she requested that I send back tele 6 and she would provide a new monitor for [place].
[2020-05-13 20:00] VITALS: BP 149/82
[2020-05-13 22:00] VITALS: BP 133/66
[2020-05-13] MEDS: SODIUM CHLORIDE 0.9% 1,000 ML IV SCH (22:40)
[2020-05-14 05:00] VITALS: BP 131/72
[2020-05-14] MEDS: InsuLIN REG 1unit/0.01ml Soln (100units/ml) SC SCH ×4 (05:55→22:41)
[2020-05-14] MEDS: ACCU-CHEK COMFORT CURVE STRIP VI SCH ×4 (05:56→22:00)
--- NOTE | 2020-05-14 05:57 | NUR ---
PT AWAKE ALERT AND WANTS TO GO HOME. VSS.CALL LIGHT IN REACH.WILL CONTINUE TO MONITOR.
[2020-05-14 06:37] LABS: Basophils # (auto) 0.1 10 ^3/uL (0-0.2); Eosinophils # (auto) 0 10 ^3/uL (0-0.8); Eosinophils % (auto) 0.4 % (0.0-7.0); Hemoglobin 11.7 g/dL (13.5-17.5); Lymphocytes # (auto) 0.7 10 ^3/uL (0.4-5.4); Neutrophils # (auto) 7.6 10 ^3/uL (1.6-8.6)
[2020-05-14 06:39] LABS: Basophils % (auto) 0.9 % (0.0-2.0); Hematocrit 35.8 % (41.0-53.0); Lymphocytes % (auto) 7.5 % (10.0-50.0); Mean Corpuscular Hemoglobin 25.2 pg (28.0-32.0); Mean Corpuscular Hgb Conc. 32.8 g/dL (32.0-36.0); Mean Corpuscular Volume 76.9 fL (80.0-100.0); Monocytes # (auto) 0.6 10 ^3/uL (0-1.3); Monocytes % (auto) 6.4 % (0.0-12.0); Neutrophils % (auto) 84.8 % (37.0-80.0); Nucleated Red Blood Cells % 0.1 %; Platelet Count (auto) 169 10^3/uL (140-450); Red Blood Cells 4.65 10^6/uL (4.5-5.90); Red Cell Distribution Width 17.4 % (11.8-14.3); White Blood Cell 8.9 10^3/uL (4.4-10.8)
[2020-05-14 06:58] LABS: Albumin 3.4 g/dL (3.4-5.0); Calcium 8.5 mg/dL (8.5-10.1); Potassium 3.9 mmol/L (3.5-5.1)
[2020-05-14 07:01] LABS: BUN/Creatinine Ratio 20.5; Bilirubin, Total 0.4 mg/dL (0.2-1.0); Total Protein 6.6 g/dL (6.4-8.2)
--- NOTE | 2020-05-14 07:17 | NUR ---
Opening Shift Note: Assumed care of patient, awake and alert. No S/S of distress/SOB or pain. Bed in lowest locked position, side rails up x 2, call light within reach. Patient instructed on POC and to call for assist PRN, will continue to monitor for changes Q1hr and PRN.
[2020-05-14 08:58] VITALS: BP 136/73
[2020-05-14] MEDS ORDERED: cefTRIAXone 1GM/50ML D5W 50 ML IV SCH (09:00)
[2020-05-14] MEDS: ASPirin 81 mg TAB PO SCH (10:00)
[2020-05-14] MEDS: CHOLECALCIFEROL (VITD3) 1,000UNIT=25mCg TAB PO SCH (10:00)
[2020-05-14] MEDS: DOXYCYCLINE 100 MG TAB/CAP PO SCH (10:00)
--- NOTE | 2020-05-14 11:34 | NUR ---
DR. STROUD: Dr. Gomez at bedside, discussed POC with patient.
[2020-05-14] MEDS: SODIUM CHLORIDE 0.9% 1,000 ML IV SCH (12:00)
[2020-05-14 13:00] VITALS: BP 125/68
[2020-05-14] MEDS ORDERED: hydrALAZINE HCL 20 MG/ML VL IV PRN (15:00)
[2020-05-14 17:00] VITALS: BP 131/71
[2020-05-14] MEDS: TAMSULOSIN HYDROCHLORIDE 0.4 MG CAP PO SCH (17:23)
--- NOTE | 2020-05-14 17:46 | NUR ---
PT REPORTS THAT HE IS DOING FINE AND DOES NOT NEED P.T. INTERVENTION
--- NOTE | 2020-05-14 18:51 | NUR ---
CLOSING NOTE: Patient resting in bed. No S/S of distress. Care endorsed to NOC RN.
--- NOTE | 2020-05-14 19:18 | NUR ---
Opening Shift Note: Assumed care of patient. Patient awake, alert and oriented x 4, no s/s of SOB or distress, patient denies pain at this time. Bed in lowest locked position with two side rails raised and call robles within reach. Instructed on POC and encouraged to call for assistance, all questions and concerns addressed, patient verbalizes understanding. Will continue to monitor Q1 hr and PRN.
[2020-05-14 20:00] VITALS: BP 143/97
[2020-05-14] MEDS: INSULIN 70/30 1unit/0.01ml Susp (100units/ml) SC SCH (22:40)
[2020-05-15 05:00] VITALS: BP 125/67
[2020-05-15] MEDS: ACCU-CHEK COMFORT CURVE STRIP VI SCH ×4 (06:10→22:00)
[2020-05-15] MEDS: InsuLIN REG 1unit/0.01ml Soln (100units/ml) SC SCH ×4 (06:11→21:56)
[2020-05-15 06:37] LABS: Calcium 8.6 mg/dL (8.5-10.1); Potassium 3.8 mmol/L (3.5-5.1)
[2020-05-15 06:39] LABS: BUN/Creatinine Ratio 19.5
[2020-05-15 09:00] VITALS: BP 114/66
[2020-05-15] MEDS ORDERED: HALOPERIDOL LACTATE 5 MG/ML INJ VIAL IM PRN (09:45)
[2020-05-15] MEDS: CLOPIDOGREL BISULFATE 75 MG TAB PO SCH (10:00)
[2020-05-15] MEDS: ASPirin 81 mg TAB PO SCH (10:00)
[2020-05-15] MEDS: ENOXAPARIN SOD 40 MG/0.4 ML SYRINGE SC SCH (10:00)
[2020-05-15] MEDS: LISINOPRIL 10 MG TAB PO SCH (10:01)
[2020-05-15] MEDS: INSULIN 70/30 1unit/0.01ml Susp (100units/ml) SC SCH ×2 (11:19→21:59)
--- NOTE | 2020-05-15 12:39 | NUR ---
DR STROUD: DR. PEO AT BEDSIDE.
[2020-05-15] MEDS ORDERED: DOXYCYCLINE 100 MG TAB/CAP PO ONE (12:45)
[2020-05-15 14:45] VITALS: BP 138/69
--- NOTE | 2020-05-15 16:54 | NUR ---
SPOKE WITH MD Per Dr. Gracie Bean "I cannot sent patient home tonight, need to wait on report from senior manager asset protection." Patient updated.
[2020-05-15 17:00] VITALS: BP 132/75
[2020-05-15] MEDS: TAMSULOSIN HYDROCHLORIDE 0.4 MG CAP PO SCH (17:45)
--- NOTE | 2020-05-15 18:45 | NUR ---
CLOSING NOTE: Patient resting in bed. No S/S of distress at this time. Care endorsed to NOC RN.
--- NOTE | 2020-05-15 19:10 | NUR ---
Opening note Assumed care of patient. Patient alert and orientated x4. NO sob or distress noted. Patient states he is ready to be discharged. He understand he will speak to doctor in the morning. Bed locked in lowest position, side rails up x2. Call light within reach. Will continue to monitor.
[2020-05-15] MEDS: DOXYCYCLINE 100 MG TAB/CAP PO SCH (21:35)
[2020-05-15 22:00] VITALS: BP 102/68
--- NOTE | 2020-05-16 00:48 | NUR ---
Patient rounding Patient is awake sitting up on edge of bed. No SOB or distress noted. Patient states cant sleep but does not want anything at this time. Will continue to monitor.
--- NOTE | 2020-05-16 02:49 | NUR ---
Patient rounding Patient is sleeping, chest evenly rising no SOB or distress noted. Will continue to monitor.
[2020-05-16 05:00] VITALS: BP 114/60
[2020-05-16] MEDS: ACCU-CHEK COMFORT CURVE STRIP VI SCH ×2 (06:02→11:30)
[2020-05-16] MEDS: InsuLIN REG 1unit/0.01ml Soln (100units/ml) SC SCH ×2 (06:28→11:30)
--- NOTE | 2020-05-16 06:54 | NUR ---
Closing note Endorsed care to day shift RN
[2020-05-16 09:00] VITALS: BP 137/82
[2020-05-16] MEDS: ASPirin 81 mg TAB PO SCH (10:00)
[2020-05-16] MEDS: ENOXAPARIN SOD 40 MG/0.4 ML SYRINGE SC SCH (10:00)
[2020-05-16] MEDS: DOXYCYCLINE 100 MG TAB/CAP PO SCH (10:17)
[2020-05-16] MEDS: CLOPIDOGREL BISULFATE 75 MG TAB PO SCH (10:17)
[2020-05-16] MEDS: LISINOPRIL 10 MG TAB PO SCH (10:18)
[2020-05-16] MEDS: INSULIN 70/30 1unit/0.01ml Susp (100units/ml) SC SCH (10:39)
[2020-05-16 10:56] VITALS: BP 137/82
--- NOTE | 2020-05-16 11:29 | NUR ---
Discharge instructions given as ordered. Encourage to follow up with PMD as instructed. All questions and concerns addressed. Patient verbalized understanding. Medication reconciliation form completed and copy given to patient. IV removed with catheter intact, pressure dressing applied. Telemetry unit returned to ICU, spoke with Priyanka about tele being sent. Patient ambulated to vehicle with all personal belongings, accompanied by staff and family member. No distress noted at time of departure.
== END 2020-05-16 11:29 | disposition home or self-care (01) | DRG 291 ==
LOC: ER 03:42 → TELE 03:43 → TELE-EAST 10:22 → TELE-WESTW 16:27
PROVIDERS: ADMIT Internal Medicine; ATTEND Internal Medicine
DX: I11.0 Hypertensive heart disease with heart failure (principal); N17.0 Acute kidney failure with tubular necrosis; J44.1 Chronic obstructive pulmonary disease with (acute) exacerbation; I50.33 Acute on chronic diastolic (congestive) heart failure; E11.65 Type 2 diabetes mellitus with hyperglycemia; D64.9 Anemia, unspecified; E11.51 Type 2 diabetes mellitus with diabetic peripheral angiopathy without gangrene; E11.21 Type 2 diabetes mellitus with diabetic nephropathy; E11.40 Type 2 diabetes mellitus with diabetic neuropathy, unspecified; E78.00 Pure hypercholesterolemia, unspecified; I25.10 Atherosclerotic heart disease of native coronary artery without angina pectoris; E78.5 Hyperlipidemia, unspecified; R79.1 Abnormal coagulation profile; Z82.49 Family history of ischemic heart disease and other diseases of the circulatory system; Z03.818 Encounter for observation for suspected exposure to other biological agents ruled out; Z87.891 Personal history of nicotine dependence; Z88.8 Allergy status to other drugs, medicaments and biological substances; Z79.4 Long term (current) use of insulin; Z79.01 Long term (current) use of anticoagulants
CPT/HCPCS: 36415; 71045; 71046; 78582; 80048; 80053; 81001; 82550; 82728; 82962; 83036; 83605; 83735; 83880; 84484; 85025; 85379; 85610; 85652; 85730; 86141; 87040; 93005; 93306; 93970; 96374; 99291; G0378; J0696; J1815

== ENCOUNTER → 2020-06-10 | Outpatient (CLI) | payer OTHER ==
[~2020-06-10] MED LIST changes: +HYDRX10T PO; +TAM04C PO; +TRIA0.1P11 TOP
[2020-06-10 10:17] LABS: Eosinophils # (auto) 0.4 10 ^3/uL (0-0.8); Eosinophils % (auto) 6.6 % (0.0-7.0); Lymphocytes # (auto) 0.8 10 ^3/uL (0.4-5.4); Mean Corpuscular Hemoglobin 25.4 pg (28.0-32.0); Monocytes % (auto) 7.1 % (0.0-12.0); Neutrophils # (auto) 4.7 10 ^3/uL (1.6-8.6)
[2020-06-10 10:18] LABS: Basophils # (auto) 0 10 ^3/uL (0-0.2); Basophils % (auto) 0.8 % (0.0-2.0); Hematocrit 39.9 % (41.0-53.0); Mean Corpuscular Hgb Conc. 32.6 g/dL (32.0-36.0); Mean Corpuscular Volume 77.9 fL (80.0-100.0); Monocytes # (auto) 0.4 10 ^3/uL (0-1.3); Neutrophils % (auto) 73.5 % (37.0-80.0); Nucleated Red Blood Cells % 0.1 %; Platelet Count (auto) 156 10^3/uL (140-450); Red Blood Cells 5.12 10^6/uL (4.5-5.90); Red Cell Distribution Width 17.6 % (11.8-14.3); White Blood Cell 6.3 10^3/uL (4.4-10.8)
[2020-06-10 10:57] LABS: BUN/Creatinine Ratio 12.5; Calcium 8.8 mg/dL (8.5-10.1); Potassium 4.4 mmol/L (3.5-5.1)
== END | disposition home or self-care (01) ==
LOC: LAB 09:57
PROVIDERS: ATTEND Internal Medicine Gastroenterology
DX: K63.5 Polyp of colon (principal); D64.9 Anemia, unspecified
CPT/HCPCS: 36415; 80048; 85025

== ENCOUNTER → 2020-08-10 | Outpatient (CLI) | payer OTHER ==
[~2020-08-10] VITALS: Ht 172.7 cm; Wt 90.7 kg
[~2020-08-10] MED LIST changes: +ADENOSINE 76 MG in GIVE UN-DILUTED 0 ML IV STA; +ALBUTEROL SULF 2.5 MG/0.5ML(0.5%) NEB SOLN NEB ONE
== END | disposition home or self-care (01) ==
LOC: XY 08:08
PROVIDERS: ATTEND Internal Medicine
DX: J44.9 Chronic obstructive pulmonary disease, unspecified (principal); I73.9 Peripheral vascular disease, unspecified; I12.9 Hypertensive chronic kidney disease with stage 1 through stage 4 chronic kidney disease, or unspecified chronic kidney disease; E11.22 Type 2 diabetes mellitus with diabetic chronic kidney disease; N18.9 Chronic kidney disease, unspecified
CPT/HCPCS: 78452; 93017; 94640; A9500; J0153

== ENCOUNTER → 2020-08-12 | Outpatient (CLI) | payer OTHER ==
[~2020-08-12] MED LIST changes: -ADENOSINE 76 MG in GIVE UN-DILUTED 0 ML IV STA; -ALBUTEROL SULF 2.5 MG/0.5ML(0.5%) NEB SOLN NEB ONE
[2020-08-12 10:30] LABS: Potassium 4.2 mmol/L (3.5-5.1)
[2020-08-12 10:36] LABS: BUN/Creatinine Ratio 12.5; Calcium 8.8 mg/dL (8.5-10.1)
== END | disposition home or self-care (01) ==
LOC: LAB 09:50
PROVIDERS: ATTEND Internal Medicine
DX: E11.22 Type 2 diabetes mellitus with diabetic chronic kidney disease (principal); N18.9 Chronic kidney disease, unspecified
CPT/HCPCS: 36415; 80048; 83036

== ENCOUNTER → 2020-10-19 | Outpatient (CLI) | payer OTHER ==
[2020-10-19 10:17] LABS: Anion Gap 5 (5-15); Blood Urea Nitrogen 18 mg/dL (7-18); Calcium 8.5 mg/dL (8.5-10.1); Carbon Dioxide 26 mmol/L (21-32); Chloride 108 mmol/L (98-107); Glucose 235 mg/dL (74-106); Potassium 4.1 mmol/L (3.5-5.1); Sodium 139 mmol/L (136-145)
[2020-10-19 10:22] LABS: BUN/Creatinine Ratio 13.5; Cholesterol 104 mg/dL (< 200); GFR African American 68 mL/min; GFR Non-African American 56 mL/min; HDL Cholesterol 21 mg/dL (40-59); Triglycerides 470 mg/dL (< 150)
== END | disposition home or self-care (01) ==
LOC: LAB 09:37
PROVIDERS: ATTEND Internal Medicine
DX: E11.22 Type 2 diabetes mellitus with diabetic chronic kidney disease (principal); N18.9 Chronic kidney disease, unspecified; I73.9 Peripheral vascular disease, unspecified
CPT/HCPCS: 36415; 80048; 80061; 82607

== ENCOUNTER → 2020-12-07 | Outpatient (CLI) | payer OTHER ==
[~2020-12-07] MED LIST changes: -CLOP75TA41 PO; +CLOP75TA70 PO
[2020-12-07 10:11] LABS: Basophils # (auto) 0.1 10 ^3/uL (0-0.2); Basophils % (auto) 1.1 % (0.0-2.0); Eosinophils # (auto) 0.5 10 ^3/uL (0-0.8); Eosinophils % (auto) 7.6 % (0.0-7.0); Lymphocytes # (auto) 0.7 10 ^3/uL (0.4-5.4); Monocytes # (auto) 0.4 10 ^3/uL (0-1.3); Nucleated Red Blood Cells % 0.1 %
[2020-12-07 10:14] LABS: Hematocrit 37.5 % (41.0-53.0); Hemoglobin 12.7 g/dL (13.5-17.5); Mean Corpuscular Hemoglobin 26.5 pg (28.0-32.0); Mean Corpuscular Hgb Conc. 33.8 g/dL (32.0-36.0); Mean Corpuscular Volume 78.4 fL (80.0-100.0); Monocytes % (auto) 6.3 % (0.0-12.0); Neutrophils # (auto) 5.2 10 ^3/uL (1.6-8.6); Platelet Count (auto) 181 10^3/uL (140-450); Red Blood Cells 4.78 10^6/uL (4.5-5.90); Red Cell Distribution Width 16.5 % (11.8-14.3); White Blood Cell 6.9 10^3/uL (4.4-10.8)
[2020-12-07 10:26] LABS: INR 1.01 (0.9-1.15)
[2020-12-07 11:01] LABS: Potassium 4.1 mmol/L (3.5-5.1)
[2020-12-07 11:08] LABS: Albumin 3.6 g/dL (3.4-5.0); BUN/Creatinine Ratio 13.7; Bilirubin, Total 0.4 mg/dL (0.2-1.0); Calcium 8.8 mg/dL (8.5-10.1); Total Protein 7.7 g/dL (6.4-8.2)
== END | disposition home or self-care (01) ==
LOC: LAB 09:59
PROVIDERS: ATTEND Internal Medicine Gastroenterology
DX: D64.9 Anemia, unspecified (principal)
CPT/HCPCS: 36415; 80053; 83036; 85025; 85610

== ENCOUNTER → 2021-01-05 | Outpatient (CLI) | payer OTHER ==
[2021-01-05 11:21] LABS: Anion Gap 6 (5-15); Carbon Dioxide 27 mmol/L (21-32); Chloride 108 mmol/L (98-107); Sodium 141 mmol/L (136-145)
[2021-01-05 11:28] LABS: Alanine Aminotransferase 12 U/L (16-61); Albumin 3.5 g/dL (3.4-5.0); Alkaline Phosphatase 70 U/L (45-117); Aspartate Aminotransferase 11 U/L (15-37); BUN/Creatinine Ratio 15.2; Bilirubin, Total 0.3 mg/dL (0.2-1.0); Blood Urea Nitrogen 17 mg/dL (7-18); Cholesterol 142 mg/dL (< 200); Creatine Kinase IFCC 45 U/L (39-308); GFR African American 83 mL/min; GFR Non-African American 69 mL/min; Glucose 159 mg/dL (74-106); HDL Cholesterol 25 mg/dL (40-59); Total Protein 7.5 g/dL (6.4-8.2); Triglycerides 447 mg/dL (< 150)
== END | disposition home or self-care (01) ==
LOC: LAB 09:32
PROVIDERS: ATTEND Internal Medicine
DX: Z01.812 Encounter for preprocedural laboratory examination (principal)
CPT/HCPCS: 36415; 80053; 80061; 82306; 82550; 83036; 86200; 86431

== ENCOUNTER → 2021-01-07 | Outpatient (CLI) | payer OTHER ==
[~2021-01-07] MED LIST changes: +IOPAMIDOL 76 % (ISOVUE-370) 100ML BTL IV ONE
== END | disposition home or self-care (01) ==
LOC: CT 08:33
PROVIDERS: ATTEND Internal Medicine
DX: I70.203 Unspecified atherosclerosis of native arteries of extremities, bilateral legs (principal); K76.0 Fatty (change of) liver, not elsewhere classified; N40.0 Benign prostatic hyperplasia without lower urinary tract symptoms; K86.89 Other specified diseases of pancreas; K40.20 Bilateral inguinal hernia, without obstruction or gangrene, not specified as recurrent
CPT/HCPCS: 75635; Q9967

== ENCOUNTER → 2021-01-19 | Outpatient (CLI) | payer OTHER ==
[~2021-01-19] MED LIST changes: -IOPAMIDOL 76 % (ISOVUE-370) 100ML BTL IV ONE
== END | disposition home or self-care (01) ==
LOC: LAB 12:50
PROVIDERS: ATTEND Internal Medicine
DX: Z01.812 Encounter for preprocedural laboratory examination (principal)
CPT/HCPCS: 82274

== ENCOUNTER 2021-02-18 12:11 | Emergency (ER) | payer OTHER ==
[~2021-02-18] VITALS: Ht 175.3 cm; Wt 95.3 kg
[2021-02-18 12:14] VITALS: BP 182/96
[2021-02-18] MEDS ORDERED: KETOROLAC TROMETH 30 MG/ML 1ML VIAL IM ONE (15:30)
== END 2021-02-18 15:48 | disposition home or self-care (01) ==
LOC: ER 12:11
DX: M19.012 Primary osteoarthritis, left shoulder (principal); M19.042 Primary osteoarthritis, left hand; E11.9 Type 2 diabetes mellitus without complications; I10 Essential (primary) hypertension; E78.5 Hyperlipidemia, unspecified; Z79.899 Other long term (current) drug therapy; Z88.8 Allergy status to other drugs, medicaments and biological substances
CPT/HCPCS: 73030; 73130; 96372; 99284; J1885

== ENCOUNTER → 2021-03-21 | Outpatient (CLI) | payer OTHER ==
[~2021-03-21] MED LIST changes: -LISI-646 PO; +LISI20TA28 PO
[2021-03-21 08:06] LABS: Urine Bacteria NONE SEEN /hpf (None Seen); Urine Blood Negative /uL (Negative); Urine WBC <1 /hpf (0 - 3)
[2021-03-21 08:37] LABS: Albumin 3.4 g/dL (3.4-5.0); Anion Gap 7 (5-15); Calcium 8.5 mg/dL (8.5-10.1); Carbon Dioxide 26 mmol/L (21-32); Chloride 108 mmol/L (98-107); Sodium 141 mmol/L (136-145)
[2021-03-21 08:44] LABS: Alanine Aminotransferase 13 U/L (16-61); Alkaline Phosphatase 67 U/L (45-117); Aspartate Aminotransferase 11 U/L (15-37); BUN/Creatinine Ratio 17.9; Bilirubin, Total 0.4 mg/dL (0.2-1.0); Blood Urea Nitrogen 20 mg/dL (7-18); Cholesterol 138 mg/dL (< 200); GFR African American 83 mL/min; GFR Non-African American 69 mL/min; Glucose 187 mg/dL (74-106); HDL Cholesterol 24 mg/dL (40-59); Total Protein 7.1 g/dL (6.4-8.2); Triglycerides 502 mg/dL (< 150)
== END | disposition home or self-care (01) ==
LOC: LAB 07:38
PROVIDERS: ATTEND Internal Medicine
DX: E11.22 Type 2 diabetes mellitus with diabetic chronic kidney disease (principal); N18.9 Chronic kidney disease, unspecified
CPT/HCPCS: 36415; 80053; 80061; 81001; 82043; 82306; 83036

== ENCOUNTER → 2021-04-08 | Outpatient (CLI) | payer OTHER | END | disposition home or self-care (01) | LOC: LAB 09:38 | PROVIDERS: ATTEND Internal Medicine | DX: E11.22 Type 2 diabetes mellitus with diabetic chronic kidney disease (principal); N18.9 Chronic kidney disease, unspecified | CPT/HCPCS: 82274 ==

== ENCOUNTER → 2021-05-23 | Outpatient (CLI) | payer OTHER ==
[~2021-05-23] MED LIST changes: +ALBUAER3 IN; +ERGO2000 PO
[2021-05-23 09:41] LABS: Basophils # (auto) 0.1 10 ^3/uL (0-0.2); Hemoglobin 12.5 g/dL (13.5-17.5); Monocytes # (auto) 0.4 10 ^3/uL (0-1.3); Neutrophils # (auto) 3.7 10 ^3/uL (1.6-8.6)
[2021-05-23 09:44] LABS: Basophils % (auto) 1.4 % (0.0-2.0); Eosinophils # (auto) 0.1 10 ^3/uL (0-0.8); Eosinophils % (auto) 2.9 % (0.0-7.0); Hematocrit 36.7 % (41.0-53.0); Lymphocytes # (auto) 0.6 10 ^3/uL (0.4-5.4); Lymphocytes % (auto) 12.1 % (10.0-50.0); Mean Corpuscular Hemoglobin 26.4 pg (28.0-32.0); Mean Corpuscular Hgb Conc. 33.9 g/dL (32.0-36.0); Mean Corpuscular Volume 77.7 fL (80.0-100.0); Monocytes % (auto) 7.2 % (0.0-12.0); Neutrophils % (auto) 76.4 % (37.0-80.0); Nucleated Red Blood Cells % 0.1 %; Red Blood Cells 4.72 10^6/uL (4.5-5.90); Red Cell Distribution Width 18.2 % (11.8-14.3); White Blood Cell 4.9 10^3/uL (4.4-10.8)
[2021-05-23 10:00] LABS: INR 1.03 (0.9-1.15)
[2021-05-23 10:34] LABS: Albumin 3.6 g/dL (3.4-5.0); Potassium 4.3 mmol/L (3.5-5.1)
[2021-05-23 10:44] LABS: BUN/Creatinine Ratio 14.3; Bilirubin, Total 0.4 mg/dL (0.2-1.0); Total Protein 7.4 g/dL (6.4-8.2)
== END | disposition home or self-care (01) ==
LOC: LAB 09:05
PROVIDERS: ATTEND Internal Medicine
DX: Z01.812 Encounter for preprocedural laboratory examination (principal)
CPT/HCPCS: 36415; 80053; 85025; 85610; 85730

== ENCOUNTER 2021-05-25 06:53 | Day surgery (SDC) | payer OTHER ==
[~2021-05-25] VITALS: Ht 175.3 cm; Wt 90.7 kg
[~2021-05-25 06:53] MED LIST changes: -HYDRX10T PO; -TAM04C PO; -TRIA0.1P11 TOP
[2021-05-25] MEDS ORDERED: LIDOCAINE 2%HCL (LOCAL ANESTH.) INJ 20ML MDV ONE (08:15)
[2021-05-25] MEDS ORDERED: IODIXANOL 320MG/ML 100ML BTL IV ONE (08:15)
[2021-05-25] MEDS ORDERED: fentaNYL CITRATE 100 MCG/2 ML VL ONE (08:26)
[2021-05-25] MEDS ORDERED: ANGIOMAX 250 MG VIAL IV ONE (08:26)
[2021-05-25] MEDS ORDERED: MIDAZOLAM HCL 2MG/2ML 2ml VIAL (1mg/ml) ONE ×2 (08:26→09:16)
[2021-05-25] MEDS ORDERED: SODIUM CHL 0.9% 50 ML ONE (08:26)
[2021-05-25] MEDS ORDERED: ASPirin 81 mg TAB ONE (09:19)
[2021-05-25] MEDS ORDERED: CLOPIDOGREL BISULFATE 75 MG TAB ONE (09:19)
[2021-05-25] MEDS ORDERED: HYDROcodone-ACET 5/325MG TAB PO PRN (09:45)
[2021-05-25] MEDS ORDERED: ONDANSETRON HCL 4 MG/2 ML VIAL IV PRN (09:45)
[2021-05-25] MEDS ORDERED: ACETAMINOPHEN 500 MG TAB PO PRN (09:45)
== END 2021-05-25 11:52 | disposition home or self-care (01) ==
LOC: CATH 06:53
PROVIDERS: ATTEND Internal Medicine
DX: I70.211 Atherosclerosis of native arteries of extremities with intermittent claudication, right leg (principal); I10 Essential (primary) hypertension; E78.5 Hyperlipidemia, unspecified; E11.9 Type 2 diabetes mellitus without complications; Z79.899 Other long term (current) drug therapy; Z88.8 Allergy status to other drugs, medicaments and biological substances; Z20.822 Contact with and (suspected) exposure to COVID-19; Z87.891 Personal history of nicotine dependence; Z68.29 Body mass index [BMI] 29.0-29.9, adult
CPT/HCPCS: 37224; 75716; C1725; C1760; C1769; C1894; J0583; J1644; J2250; J3010; J7030; Q9967; U0003; 99152; 99153

== ENCOUNTER → 2021-07-20 | Outpatient (CLI) | payer OTHER ==
[2021-07-20 08:44] LABS: Basophils # (auto) 0.1 10 ^3/uL (0-0.2); Eosinophils # (auto) 0.5 10 ^3/uL (0-0.8); Lymphocytes # (auto) 0.7 10 ^3/uL (0.4-5.4); Neutrophils # (auto) 4.1 10 ^3/uL (1.6-8.6)
[2021-07-20 08:45] LABS: Basophils % (auto) 1.1 % (0.0-2.0); Eosinophils % (auto) 9.6 % (0.0-7.0); Hematocrit 37.9 % (41.0-53.0); Hemoglobin 12.5 g/dL (13.5-17.5); Lymphocytes % (auto) 12.6 % (10.0-50.0); Mean Corpuscular Hemoglobin 25.6 pg (28.0-32.0); Mean Corpuscular Hgb Conc. 32.9 g/dL (32.0-36.0); Mean Corpuscular Volume 77.9 fL (80.0-100.0); Monocytes # (auto) 0.3 10 ^3/uL (0-1.3); Monocytes % (auto) 5.7 % (0.0-12.0); Red Blood Cells 4.87 10^6/uL (4.5-5.90); Red Cell Distribution Width 17.1 % (11.8-14.3); White Blood Cell 5.7 10^3/uL (4.4-10.8)
[2021-07-20 09:20] LABS: Anion Gap 8 (5-15); Calcium 9.1 mg/dL (8.5-10.1); Carbon Dioxide 24 mmol/L (21-32); Chloride 107 mmol/L (98-107); Potassium 3.9 mmol/L (3.5-5.1); Sodium 139 mmol/L (136-145)
[2021-07-20 09:26] LABS: % Iron Saturation 21.3 % (20-55); Alanine Aminotransferase 22 U/L (16-61); Albumin 3.6 g/dL (3.4-5.0); Alkaline Phosphatase 62 U/L (45-117); Aspartate Aminotransferase 15 U/L (15-37); BUN/Creatinine Ratio 13.7; Bilirubin, Total 0.5 mg/dL (0.2-1.0); Blood Urea Nitrogen 17 mg/dL (7-18); CRP High Sensitivity 0.55 mg/dL (< 0.3); Cholesterol 158 mg/dL (< 200); GFR African American 74 mL/min; GFR Non-African American 61 mL/min; Glucose 237 mg/dL (74-106); HDL Cholesterol 19 mg/dL (40-59); Total Protein 7.3 g/dL (6.4-8.2); Triglycerides 730 mg/dL (< 150); Uric Acid 6.3 mg/dL (3.5-7.2)
[2021-07-21 14:58] LABS: Hepatitis B Core Total AB Negative; Hepatitis B Surface Antigen Negative (Negative)
== END | disposition home or self-care (01) ==
LOC: LAB 08:08
PROVIDERS: ATTEND Internal Medicine Gastroenterology
DX: D64.9 Anemia, unspecified (principal); R94.5 Abnormal results of liver function studies; M10.9 Gout, unspecified; M05.79 Rheumatoid arthritis with rheumatoid factor of multiple sites without organ or systems involvement
CPT/HCPCS: 36415; 80053; 80061; 82306; 82378; 83036; 83540; 83550; 84550; 85025; 85652; 86141; 86431; 86704; 86812; 87340

== ENCOUNTER 2021-08-02 14:30 | Inpatient (IN) | payer OTHER ==
[~2021-08-02] VITALS: Ht 175.3 cm; Wt 92.3 kg
[2021-08-02] MEDS ORDERED: ASPirin 81 mg TAB PO ONE (14:45)
[2021-08-02 16:04] LABS: Basophils # (auto) 0.1 10 ^3/uL (0-0.2); Eosinophils # (auto) 0.4 10 ^3/uL (0-0.8); Lymphocytes # (auto) 0.6 10 ^3/uL (0.4-5.4); Monocytes # (auto) 0.3 10 ^3/uL (0-1.3); Monocytes % (auto) 5.2 % (0.0-12.0); White Blood Cell 6.5 10^3/uL (4.4-10.8)
[2021-08-02 16:06] LABS: Basophils % (auto) 1.1 % (0.0-2.0); Eosinophils % (auto) 5.5 % (0.0-7.0); Hematocrit 35.5 % (41.0-53.0); Hemoglobin 11.8 g/dL (13.5-17.5); Lymphocytes % (auto) 9.8 % (10.0-50.0); Mean Corpuscular Hemoglobin 25.5 pg (28.0-32.0); Mean Corpuscular Hgb Conc. 33.4 g/dL (32.0-36.0); Mean Corpuscular Volume 76.5 fL (80.0-100.0); Neutrophils # (auto) 5.1 10 ^3/uL (1.6-8.6); Neutrophils % (auto) 78.4 % (37.0-80.0); Red Blood Cells 4.63 10^6/uL (4.5-5.90); Red Cell Distribution Width 17.1 % (11.8-14.3)
[2021-08-02 16:26] LABS: INR 1.02 (0.9-1.15); Partial Thromboplastin Time 25.5 sec (23.6-33.0)
[2021-08-02 16:34] LABS: Albumin 3.5 g/dL (3.4-5.0); Anion Gap 8 (5-15); Blood Urea Nitrogen 25 mg/dL (7-18); Calcium 8.8 mg/dL (8.5-10.1); Carbon Dioxide 23 mmol/L (21-32); Chloride 109 mmol/L (98-107); Glucose 177 mg/dL (74-106); Magnesium 1.9 mg/dL (1.6-2.6); Potassium 3.9 mmol/L (3.5-5.1); Sodium 140 mmol/L (136-145)
[2021-08-02 16:41] LABS: Alanine Aminotransferase 21 U/L (16-61); Alkaline Phosphatase 60 U/L (45-117); Aspartate Aminotransferase 10 U/L (15-37); BUN/Creatinine Ratio 16.8; Bilirubin, Total 0.4 mg/dL (0.2-1.0); GFR African American 60 mL/min; GFR Non-African American 49 mL/min; Total Protein 7.1 g/dL (6.4-8.2)
[2021-08-02] MEDS ORDERED: SODIUM CHLORIDE 0.9% 500 ML IV ONE (21:30)
[2021-08-02] MEDS ORDERED: TEMAZEPAM 15 MG CAP PO PRN (21:30)
[2021-08-02] MEDS ORDERED: NITROGLYCERIN 0.4 MG SL TAB SL PRN (21:30)
[2021-08-02] MEDS ORDERED: ACETAMINOPHEN 325 MG TAB PO PRN (21:30)
[2021-08-02] MEDS ORDERED: DEXTROSE (50%) 50ML SYRG IV PRN (21:30)
[2021-08-02] MEDS ORDERED: ONDANSETRON HCL 4 MG/2 ML VIAL IV PRN (21:30)
[2021-08-02] MEDS ORDERED: MORPHINE SULFATE INJECTION 2 MG/ML SYRG IV PRN (21:30)
[2021-08-02] MEDS ORDERED: ATORVASTATIN 20 MG TAB PO SCH (22:00)
[2021-08-02] MEDS: ACCU-CHEK COMFORT CURVE STRIP VI SCH (22:16)
[2021-08-02] MEDS: InsuLIN REG 1unit/0.01ml Soln (100units/ml) SC SCH (22:23)
[2021-08-03] VITALS (7 sets, daily range): BP systolic 152–168; BP diastolic 74–88
[2021-08-03 05:39] LABS: Basophils # (auto) 0 10 ^3/uL (0-0.2); Basophils % (auto) 0.7 % (0.0-2.0); Eosinophils # (auto) 0.3 10 ^3/uL (0-0.8); Hemoglobin 11.2 g/dL (13.5-17.5); Lymphocytes # (auto) 0.8 10 ^3/uL (0.4-5.4)
[2021-08-03 05:40] LABS: Eosinophils % (auto) 4.8 % (0.0-7.0); Mean Corpuscular Hemoglobin 25.6 pg (28.0-32.0); Mean Corpuscular Volume 77.5 fL (80.0-100.0); Monocytes # (auto) 0.4 10 ^3/uL (0-1.3); Monocytes % (auto) 6.2 % (0.0-12.0); Neutrophils # (auto) 4.4 10 ^3/uL (1.6-8.6); Neutrophils % (auto) 74.3 % (37.0-80.0); Red Blood Cells 4.39 10^6/uL (4.5-5.90); Red Cell Distribution Width 16.8 % (11.8-14.3); White Blood Cell 5.9 10^3/uL (4.4-10.8)
[2021-08-03 05:58] LABS: BUN/Creatinine Ratio 20.2; Calcium 8.6 mg/dL (8.5-10.1); Potassium 3.8 mmol/L (3.5-5.1)
[2021-08-03] MEDS ORDERED: FENO145T27 OR (06:09)
[2021-08-03] MEDS: InsuLIN REG 1unit/0.01ml Soln (100units/ml) SC SCH ×4 (06:14→22:40)
[2021-08-03] MEDS: ACCU-CHEK COMFORT CURVE STRIP VI SCH ×4 (06:18→23:26)
[2021-08-03] MEDS ORDERED: PNEUMOCOCCAL VACC POLYS 25 MCG/0.5 ML VIAL IM ONE (06:30)
[2021-08-03] MEDS ORDERED: INFLUENZA QUAD 2020-2021 0.5 ML SYRG IM ONE (06:30)
[2021-08-03] MEDS: ASPirin 81 mg TAB PO SCH (09:16)
[2021-08-03] MEDS: PANTOPRAZOLE 40 MG TAB PO SCH (09:16)
[2021-08-03] MEDS: CLOPIDOGREL BISULFATE 75 MG TAB PO SCH (09:16)
[2021-08-03] MEDS: LISINOPRIL 20 MG TAB PO SCH (09:17)
[2021-08-03] MEDS ORDERED: ALBUTEROL SULF 2.5 MG/0.5ML(0.5%) NEB SOLN NEB PRN (10:30)
[2021-08-03] MEDS ORDERED: IPRATROPIUM BROM 0.5 MG/2.5ML INH SOL NEB PRN (10:30)
[2021-08-03] MEDS ORDERED: FUROSEMIDE 20 MG/2 ML VIAL IV ONE (10:30)
[2021-08-03] MEDS ORDERED: AZITHROMYCIN 500MG/ 250ML 250 ML IV ONE (13:15)
[2021-08-03] MEDS: methylPREDNISolone SOD SUCC 125 MG/2 ML VL IV SCH ×2 (13:31→22:35)
[2021-08-03] MEDS ORDERED: hydrALAZINE HCL 20 MG/ML VL IV PRN (16:00)
[2021-08-03] MEDS: INSULIN 70/30 1unit/0.01ml Susp (100units/ml) SC SCH (22:50)
[2021-08-04 03:25] VITALS: BP 153/88
[2021-08-04 05:34] VITALS: BP 143/86
[2021-08-04 05:47] LABS: Basophils # (auto) 0 10 ^3/uL (0-0.2); Eosinophils # (auto) 0 10 ^3/uL (0-0.8); Monocytes # (auto) 0.1 10 ^3/uL (0-1.3); Red Cell Distribution Width 16.9 % (11.8-14.3)
[2021-08-04 05:49] LABS: Basophils % (auto) 0.2 % (0.0-2.0); Hematocrit 39.7 % (41.0-53.0); Hemoglobin 13.2 g/dL (13.5-17.5); Lymphocytes # (auto) 0.5 10 ^3/uL (0.4-5.4); Lymphocytes % (auto) 5.3 % (10.0-50.0); Mean Corpuscular Hemoglobin 25.7 pg (28.0-32.0); Mean Corpuscular Hgb Conc. 33.3 g/dL (32.0-36.0); Mean Corpuscular Volume 77.2 fL (80.0-100.0); Monocytes % (auto) 1.5 % (0.0-12.0); Red Blood Cells 5.15 10^6/uL (4.5-5.90); White Blood Cell 8.6 10^3/uL (4.4-10.8)
[2021-08-04 06:07] LABS: Albumin 3.8 g/dL (3.4-5.0); Calcium 9.1 mg/dL (8.5-10.1); Magnesium 2.3 mg/dL (1.6-2.6); Potassium 4.1 mmol/L (3.5-5.1)
[2021-08-04 06:11] LABS: Bilirubin, Total 0.5 mg/dL (0.2-1.0); Total Protein 7.7 g/dL (6.4-8.2)
[2021-08-04] MEDS: methylPREDNISolone SOD SUCC 125 MG/2 ML VL IV SCH (06:21)
[2021-08-04] MEDS: InsuLIN REG 1unit/0.01ml Soln (100units/ml) SC SCH ×2 (06:24→12:05)
[2021-08-04] MEDS: ACCU-CHEK COMFORT CURVE STRIP VI SCH ×2 (06:30→12:04)
[2021-08-04] MEDS ORDERED: ADENOSINE 78 MG in GIVE UN-DILUTED 0 ML IV STA (08:27)
[2021-08-04 08:55] VITALS: BP 155/76
[2021-08-04] MEDS ORDERED: AZITHROMYCIN 500MG/ 250ML 250 ML IV SCH (10:00)
[2021-08-04] MEDS ORDERED: FUROSEMIDE 20 MG/2 ML VIAL IV SCH (10:00)
[2021-08-04] MEDS: LISINOPRIL 20 MG TAB PO SCH (10:28)
[2021-08-04] MEDS: CLOPIDOGREL BISULFATE 75 MG TAB PO SCH (10:28)
[2021-08-04] MEDS: PANTOPRAZOLE 40 MG TAB PO SCH (10:28)
[2021-08-04] MEDS: ASPirin 81 mg TAB PO SCH (10:28)
[2021-08-04] MEDS: INSULIN 70/30 1unit/0.01ml Susp (100units/ml) SC SCH (12:04)
[2021-08-04 13:00] VITALS: BP 150/78
[2021-08-04] MEDS ORDERED: methylPREDNISolone SOD SUCC 40 MG/ML VL IV ONE (16:00)
[2021-08-04 16:30] VITALS: BP 150/78
[2021-08-04] MEDS ORDERED: methylPREDNISolone SOD SUCC 125 MG/2 ML VL IV SCH (22:00)
== END 2021-08-04 17:26 | disposition home or self-care (01) | DRG 191 ==
LOC: ER 14:30 → TELE 21:23 → TELE-WESTW 08-03 01:03
PROVIDERS: ADMIT Nurse Practitioner; ATTEND Internal Medicine
DX: J44.1 Chronic obstructive pulmonary disease with (acute) exacerbation (principal); I24.9 Acute ischemic heart disease, unspecified; N17.9 Acute kidney failure, unspecified; D64.9 Anemia, unspecified; E78.5 Hyperlipidemia, unspecified; Z20.822 Contact with and (suspected) exposure to COVID-19; E11.51 Type 2 diabetes mellitus with diabetic peripheral angiopathy without gangrene; F41.9 Anxiety disorder, unspecified; I11.9 Hypertensive heart disease without heart failure; Z72.0 Tobacco use; Z82.49 Family history of ischemic heart disease and other diseases of the circulatory system; Z83.3 Family history of diabetes mellitus; Z88.8 Allergy status to other drugs, medicaments and biological substances
CPT/HCPCS: 36415; 71046; 71250; 78452; 80048; 80053; 82962; 83735; 83880; 84484; 85025; 85610; 85730; 87426; 93017; 93306; 94640; 96365; 96375; G0378; J0153; J1815

== ENCOUNTER → 2021-12-16 | Outpatient (CLI) | payer OTHER ==
[~2021-12-16] MED LIST changes: +FENO145T27 OR
[2021-12-16 10:57] LABS: Chloride 108 mmol/L (98-107); Potassium 3.5 mmol/L (3.5-5.1); Sodium 138 mmol/L (136-145)
[2021-12-16 11:18] LABS: Basophils # (auto) 0.1 10 ^3/uL (0-0.2); Eosinophils # (auto) 0.8 10 ^3/uL (0-0.8); Hemoglobin 11.6 g/dL (13.5-17.5); Monocytes # (auto) 0.3 10 ^3/uL (0-1.3); Red Cell Distribution Width 17.2 % (11.8-14.3)
[2021-12-16 11:20] LABS: Basophils % (auto) 1.1 % (0.0-2.0); Eosinophils % (auto) 14.5 % (0.0-7.0); Hematocrit 34.9 % (41.0-53.0); Lymphocytes # (auto) 0.6 10 ^3/uL (0.4-5.4); Mean Corpuscular Hemoglobin 24.8 pg (28.0-32.0); Mean Corpuscular Hgb Conc. 33.3 g/dL (32.0-36.0); Mean Corpuscular Volume 74.5 fL (80.0-100.0); Monocytes % (auto) 5.2 % (0.0-12.0); Neutrophils # (auto) 3.8 10 ^3/uL (1.6-8.6); Neutrophils % (auto) 68.2 % (37.0-80.0); Nucleated Red Blood Cells % 0.1 %; Red Blood Cells 4.69 10^6/uL (4.5-5.90); White Blood Cell 5.6 10^3/uL (4.4-10.8)
[2021-12-16 11:43] LABS: Alanine Aminotransferase 18 U/L (16-61); Albumin 3.6 g/dL (3.4-5.0); Alkaline Phosphatase 76 U/L (45-117); Anion Gap 7 (5-15); Aspartate Aminotransferase 15 U/L (15-37); BUN/Creatinine Ratio 11.4; Bilirubin, Total 0.3 mg/dL (0.2-1.0); Blood Urea Nitrogen 15 mg/dL (7-18); Calcium 8.7 mg/dL (8.5-10.1); Carbon Dioxide 23 mmol/L (21-32); Cholesterol 148 mg/dL (< 200); GFR African American 69 mL/min; GFR Non-African American 57 mL/min; Glucose 184 mg/dL (74-106); HDL Cholesterol 20 mg/dL (40-59); Total Protein 6.9 g/dL (6.4-8.2); Triglycerides 661 mg/dL (< 150)
== END | disposition home or self-care (01) ==
LOC: LAB 08:06
PROVIDERS: ATTEND Urology
DX: N52.8 Other male erectile dysfunction (principal)
CPT/HCPCS: 36415; 80053; 80061; 83036; 84153; 84403; 84443; 85025

== ENCOUNTER → 2021-12-28 | Outpatient (CLI) | payer OTHER | END | disposition home or self-care (01) | LOC: LAB 15:20 | PROVIDERS: ATTEND Student in an Organized Health Care Education/Training Program | DX: Z00.00 Encounter for general adult medical examination without abnormal findings (principal) | CPT/HCPCS: 82274 ==

== ENCOUNTER → 2022-03-09 | Day surgery (SDC) | payer OTHER ==
[2022-03-06 10:27] LABS: Urine Bacteria None Seen /hpf (None Seen); Urine WBC None Seen /hpf (0 - 3)
[2022-03-06 10:32] LABS: Hematocrit 35.8 % (41.0-53.0); Hemoglobin 11.8 g/dL (13.5-17.5); Mean Corpuscular Hemoglobin 23.7 pg (28.0-32.0); Mean Corpuscular Hgb Conc. 33.1 g/dL (32.0-36.0); Mean Corpuscular Volume 71.5 fL (80.0-100.0); Red Blood Cells 5.01 10^6/uL (4.5-5.90); Red Cell Distribution Width 17.1 % (11.8-14.3); White Blood Cell 5.6 10^3/uL (4.4-10.8)
[2022-03-06 10:35] LABS: Blast Cells 0; Metamyelocytes % 0; Myelocytes % 0; Promyelocytes % 0; Reactive Lymphocytes 0; Urine Blood Normal /uL (Negative); Urine Specific Gravity 1.007 (1.001-1.035)
[2022-03-06 10:54] LABS: INR 1.05 (0.9-1.15); Partial Thromboplastin Time 28.2 sec (23.6-33.0)
[2022-03-06 11:19] LABS: Albumin 3.5 g/dL (3.4-5.0); BUN/Creatinine Ratio 14.9; Bilirubin, Total 0.4 mg/dL (0.2-1.0); Calcium 8.9 mg/dL (8.5-10.1); Total Protein 7.3 g/dL (6.4-8.2)
[2022-03-06 12:36] LABS: Band Neutrophils % (manual) 1; Basophils % (manual) 1 (0.0-2.0); Eosinophils % (manual) 5 (0-7); Lymphocytes % (manual) 11 (10.0-50.0); Monocytes % (manual) 10 (0-12)
[~2022-03-09] VITALS: Ht 175.3 cm; Wt 93.0 kg
[~2022-03-09] MED LIST changes: +ALBUTEROL SULF 2.5 MG/0.5ML(0.5%) NEB SOLN NEB ONE; +CIPROFLOXACIN 400MG/200ML 200 ML IV ONE; +DILT-29 PO; -FENO145T27 OR; +FINACRY PO; +FINASTERIDE 5 MG TAB PO SCH; +ICOS1CAP3 PO; +IPRATROPIUM BROM 0.5 MG/2.5ML INH SOL NEB ONE; +PANT40TA2 PO; -ROSU10TA16 PO; +UMEC1AER IN
[2022-03-09 06:35] VITALS: BP 153/72
== END | disposition home or self-care (01) ==
LOC: SUR 06:08
PROVIDERS: ATTEND Urology
DX: N40.1 Benign prostatic hyperplasia with lower urinary tract symptoms (principal); Z53.8 Procedure and treatment not carried out for other reasons; Z82.49 Family history of ischemic heart disease and other diseases of the circulatory system; Z83.3 Family history of diabetes mellitus; Z87.891 Personal history of nicotine dependence; Z20.822 Contact with and (suspected) exposure to COVID-19
CPT/HCPCS: 36415; 80053; 81001; 82962; 85007; 85027; 85610; 85730; 94640; J0744; J7644; U0003

== ENCOUNTER → 2022-05-09 | Outpatient (CLI) | payer OTHER ==
[~2022-05-09] MED LIST changes: -ALBUTEROL SULF 2.5 MG/0.5ML(0.5%) NEB SOLN NEB ONE; -CIPROFLOXACIN 400MG/200ML 200 ML IV ONE; -FINASTERIDE 5 MG TAB PO SCH; -IPRATROPIUM BROM 0.5 MG/2.5ML INH SOL NEB ONE
== END | disposition home or self-care (01) ==
LOC: XYW 07:26
PROVIDERS: ATTEND Internal Medicine
DX: I07.1 Rheumatic tricuspid insufficiency (principal); I27.20 Pulmonary hypertension, unspecified
CPT/HCPCS: 93306

== ENCOUNTER → 2022-05-23 | Outpatient (CLI) | payer OTHER ==
[2022-05-23 09:13] LABS: Cholesterol 159 mg/dL (< 200)
[2022-05-23 09:16] LABS: HDL Cholesterol 26 mg/dL (40-59); LDL Cholesterol 87 mg/dL (< 100); Triglycerides 382 mg/dL (< 150)
== END | disposition home or self-care (01) ==
LOC: LAB 08:27
PROVIDERS: ATTEND Internal Medicine
DX: E78.1 Pure hyperglyceridemia (principal); I10 Essential (primary) hypertension
CPT/HCPCS: 36415; 80061; 83036

== ENCOUNTER 2022-06-21 06:48 | Day surgery (SDC) | payer OTHER ==
[2022-06-19 10:52] LABS: Basophils # (auto) 0.1 10 ^3/uL (0-0.2); Basophils % (auto) 0.8 % (0.0-2.0); Eosinophils # (auto) 0.3 10 ^3/uL (0-0.8); Eosinophils % (auto) 4.2 % (0.0-7.0); Hematocrit 36.2 % (41.0-53.0); Hemoglobin 11.6 g/dL (13.5-17.5); INR 0.97 (0.9-1.15); Lymphocytes # (auto) 0.7 10 ^3/uL (0.4-5.4); Lymphocytes % (auto) 10.8 % (10.0-50.0); Mean Corpuscular Hemoglobin 23.7 pg (28.0-32.0); Mean Corpuscular Hgb Conc. 32.1 g/dL (32.0-36.0); Mean Corpuscular Volume 73.8 fL (80.0-100.0); Monocytes # (auto) 0.4 10 ^3/uL (0-1.3); Monocytes % (auto) 6.4 % (0.0-12.0); Neutrophils # (auto) 5.1 10 ^3/uL (1.6-8.6); Neutrophils % (auto) 77.8 % (37.0-80.0); Nucleated Red Blood Cells % 0.1 %; Partial Thromboplastin Time 28.5 sec (24.6-33.4); Red Cell Distribution Width 17.9 % (11.8-14.3); White Blood Cell 6.5 10^3/uL (4.4-10.8)
[2022-06-19 11:09] LABS: Albumin 3.8 g/dL (3.4-5.0); BUN/Creatinine Ratio 18.4; Calcium 9.2 mg/dL (8.5-10.1); Potassium 4.6 mmol/L (3.5-5.1)
[2022-06-19 11:12] LABS: Bilirubin, Total 0.3 mg/dL (0.2-1.0); Total Protein 7.3 g/dL (6.4-8.2)
[2022-06-21] VITALS (10 sets, daily range): BP systolic 113–125; BP diastolic 59–68
[~2022-06-21] VITALS: Ht 175.3 cm; Wt 90.7 kg
[~2022-06-21 06:48] MED LIST changes: -ALBUAER3 IN; -ERGO2000 PO; +OMEG7.5C PO; -PANT40TA2 PO; +SILD20TA2 PO; +TAM04C PO; -UMEC1AER IN
[2022-06-21] MEDS ORDERED: LIDOCAINE 2%HCL (LOCAL ANESTH.) INJ 20ML MDV ONE (09:10)
[2022-06-21] MEDS ORDERED: IODIXANOL 320MG/ML 100ML BTL IV ONE (09:10)
[2022-06-21] MEDS ORDERED: fentaNYL CITRATE 100 MCG/2 ML VL ONE (09:12)
[2022-06-21] MEDS ORDERED: ANGIOMAX 250 MG VIAL IV ONE (09:12)
[2022-06-21] MEDS ORDERED: SODIUM CHL 0.9% 50 ML ONE (09:13)
[2022-06-21] MEDS ORDERED: MIDAZOLAM HCL 2MG/2ML 2ml VIAL (1mg/ml) ONE (09:13)
== END 2022-06-21 12:52 | disposition home or self-care (01) ==
LOC: CATH 06:48
PROVIDERS: ATTEND Internal Medicine
DX: E11.51 Type 2 diabetes mellitus with diabetic peripheral angiopathy without gangrene (principal); E11.42 Type 2 diabetes mellitus with diabetic polyneuropathy; I10 Essential (primary) hypertension; E78.41 Elevated Lipoprotein(a); Z79.4 Long term (current) use of insulin; Z87.891 Personal history of nicotine dependence; Z82.49 Family history of ischemic heart disease and other diseases of the circulatory system; Z83.3 Family history of diabetes mellitus; Z20.822 Contact with and (suspected) exposure to COVID-19
CPT/HCPCS: 36415; 37225; 80053; 85025; 85610; 85730; C1725; C1760; C1769; C1894; J0583; J1644; J2250; J3010; J7030; Q9967; U0003; 99152; 99153

== ENCOUNTER → 2022-08-02 | Outpatient (CLI) | payer OTHER ==
[2022-08-02 11:24] LABS: Basophils # (auto) 0.1 10 ^3/uL (0-0.2); Eosinophils # (auto) 0.5 10 ^3/uL (0-0.8); Lymphocytes # (auto) 0.8 10 ^3/uL (0.4-5.4); Mean Corpuscular Hgb Conc. 32.2 g/dL (32.0-36.0)
[2022-08-02 11:26] LABS: Basophils % (auto) 1.3 % (0.0-2.0); Eosinophils % (auto) 7.3 % (0.0-7.0); Hematocrit 36.2 % (41.0-53.0); Hemoglobin 11.7 g/dL (13.5-17.5); Lymphocytes % (auto) 11.2 % (10.0-50.0); Mean Corpuscular Hemoglobin 24.1 pg (28.0-32.0); Mean Corpuscular Volume 74.9 fL (80.0-100.0); Monocytes # (auto) 0.5 10 ^3/uL (0-1.3); Monocytes % (auto) 6.7 % (0.0-12.0); Neutrophils % (auto) 73.5 % (37.0-80.0); Red Blood Cells 4.83 10^6/uL (4.5-5.90); Red Cell Distribution Width 17.7 % (11.8-14.3); White Blood Cell 6.8 10^3/uL (4.4-10.8)
[2022-08-02 11:55] LABS: Partial Thromboplastin Time 27.5 sec (24.6-33.4)
[2022-08-02 12:14] LABS: Albumin 3.4 g/dL (3.4-5.0); Calcium 8.1 mg/dL (8.5-10.1); Potassium 4.4 mmol/L (3.5-5.1)
[2022-08-02 12:18] LABS: BUN/Creatinine Ratio 14.2; Bilirubin, Total 0.3 mg/dL (0.2-1.0); Total Protein 6.8 g/dL (6.4-8.2)
== END | disposition home or self-care (01) ==
LOC: LAB 11:07
PROVIDERS: ATTEND Internal Medicine
DX: Z01.812 Encounter for preprocedural laboratory examination (principal); I73.9 Peripheral vascular disease, unspecified; I10 Essential (primary) hypertension
CPT/HCPCS: 36415; 80053; 85025; 85610; 85730

== ENCOUNTER → 2022-08-03 | Outpatient (CLI) | payer OTHER ==
[2022-08-03 08:44] LABS: Basophils # (auto) 0.1 10 ^3/uL (0-0.2); Basophils % (auto) 0.9 % (0.0-2.0); Eosinophils # (auto) 0.4 10 ^3/uL (0-0.8); Hematocrit 36.3 % (41.0-53.0); Mean Corpuscular Volume 74.9 fL (80.0-100.0)
[2022-08-03 08:45] LABS: Eosinophils % (auto) 6.9 % (0.0-7.0); Hemoglobin 11.7 g/dL (13.5-17.5); Lymphocytes # (auto) 0.6 10 ^3/uL (0.4-5.4); Lymphocytes % (auto) 10.8 % (10.0-50.0); Mean Corpuscular Hgb Conc. 32.1 g/dL (32.0-36.0); Monocytes # (auto) 0.3 10 ^3/uL (0-1.3); Monocytes % (auto) 5.4 % (0.0-12.0); Neutrophils # (auto) 4.5 10 ^3/uL (1.6-8.6); Red Blood Cells 4.85 10^6/uL (4.5-5.90); Red Cell Distribution Width 17.7 % (11.8-14.3); White Blood Cell 5.9 10^3/uL (4.4-10.8)
[2022-08-03 09:16] LABS: Alanine Aminotransferase 20 U/L (16-61); Albumin 3.3 g/dL (3.4-5.0); Aspartate Aminotransferase 10 U/L (15-37); Blood Urea Nitrogen 20 mg/dL (7-18); Calcium 8.2 mg/dL (8.5-10.1); Carbon Dioxide 25 mmol/L (21-32); Glucose 169 mg/dL (74-106)
[2022-08-03 09:34] LABS: Alkaline Phosphatase 59 U/L (45-117); Anion Gap 6 (5-15); Bilirubin, Total 0.3 mg/dL (0.2-1.0); Chloride 111 mmol/L (98-107); Cholesterol 172 mg/dL (< 200); GFR African American 63 mL/min; GFR Non-African American 52 mL/min; HDL Cholesterol 28 mg/dL (40-59); Potassium 4.3 mmol/L (3.5-5.1); Sodium 142 mmol/L (136-145); Total Protein 6.6 g/dL (6.4-8.2); Triglycerides 554 mg/dL (< 150)
== END | disposition home or self-care (01) ==
LOC: LAB 08:24
PROVIDERS: ATTEND Internal Medicine
DX: I15.0 Renovascular hypertension (principal)
CPT/HCPCS: 36415; 80053; 80061; 82043; 82306; 82607; 83036; 84443; 85025

== ENCOUNTER 2022-08-04 08:48 | Day surgery (SDC) | payer OTHER ==
[~2022-08-04] VITALS: Ht 175.3 cm; Wt 90.7 kg
[2022-08-04] VITALS (9 sets, daily range): BP systolic 115–149; BP diastolic 58–72
[~2022-08-04 08:48] MED LIST changes: -TAM04C PO
[2022-08-04] MEDS ORDERED: MIDAZOLAM HCL 2MG/2ML 2ml VIAL (1mg/ml) ONE (10:19)
[2022-08-04] MEDS ORDERED: LIDOCAINE 2%HCL (LOCAL ANESTH.) INJ 20ML MDV ONE (10:19)
[2022-08-04] MEDS ORDERED: fentaNYL CITRATE 100 MCG/2 ML VL ONE (10:19)
[2022-08-04] MEDS ORDERED: ANGIOMAX 250 MG VIAL IV ONE (10:19)
[2022-08-04] MEDS ORDERED: SODIUM CHL 0.9% 0 ML ONE (10:19)
[2022-08-04] MEDS ORDERED: IODIXANOL 320MG/ML 100ML BTL IV ONE (10:20)
== END 2022-08-04 13:40 | disposition home or self-care (01) ==
LOC: CATH 08:48
PROVIDERS: ATTEND Internal Medicine
DX: E11.51 Type 2 diabetes mellitus with diabetic peripheral angiopathy without gangrene (principal); I70.213 Atherosclerosis of native arteries of extremities with intermittent claudication, bilateral legs; E11.42 Type 2 diabetes mellitus with diabetic polyneuropathy; I11.0 Hypertensive heart disease with heart failure; I50.22 Chronic systolic (congestive) heart failure; I25.119 Atherosclerotic heart disease of native coronary artery with unspecified angina pectoris; E78.5 Hyperlipidemia, unspecified; J43.2 Centrilobular emphysema; Z79.899 Other long term (current) drug therapy; Z79.4 Long term (current) use of insulin; Z88.8 Allergy status to other drugs, medicaments and biological substances; Z98.890 Other specified postprocedural states; Z20.822 Contact with and (suspected) exposure to COVID-19
CPT/HCPCS: 36245; C1760; C1769; C1894; J1644; J2250; J3010; Q9967; U0003; 99152

== ENCOUNTER → 2022-12-20 | Outpatient (CLI) | payer OTHER ==
[2022-12-20 09:01] LABS: Urine WBC None Seen /hpf (0 - 3)
[2022-12-20 09:30] LABS: Basophils # (auto) 0.1 10 ^3/uL (0-0.2); Lymphocytes # (auto) 0.7 10 ^3/uL (0.4-5.4); Monocytes # (auto) 0.3 10 ^3/uL (0-1.3); White Blood Cell 5.4 10^3/uL (4.4-10.8)
[2022-12-20 09:31] LABS: Urine Bacteria NONE SEEN /hpf (None Seen); Urine Blood Negative /uL (Negative); Urine Specific Gravity 1.006 (1.001-1.035)
[2022-12-20 09:33] LABS: Basophils % (auto) 1.1 % (0.0-2.0); Eosinophils # (auto) 0.4 10 ^3/uL (0-0.8); Eosinophils % (auto) 7.5 % (0.0-7.0); Hematocrit 36.4 % (41.0-53.0); Lymphocytes % (auto) 13.7 % (10.0-50.0); Mean Corpuscular Hemoglobin 24.8 pg (28.0-32.0); Mean Corpuscular Hgb Conc. 32.8 g/dL (32.0-36.0); Mean Corpuscular Volume 75.6 fL (80.0-100.0); Monocytes % (auto) 6.5 % (0.0-12.0); Neutrophils # (auto) 3.8 10 ^3/uL (1.6-8.6); Neutrophils % (auto) 71.2 % (37.0-80.0); Red Blood Cells 4.82 10^6/uL (4.5-5.90); Red Cell Distribution Width 17.8 % (11.8-14.3)
[2022-12-20 09:52] LABS: Prostate Specific Antigen 2.8 ng/mL (0.0-4.0)
[2022-12-20 09:53] LABS: Alanine Aminotransferase 16 U/L (16-61); Albumin 3.8 g/dL (3.4-5.0); Anion Gap 6 (5-15); Aspartate Aminotransferase 10 U/L (15-37); Carbon Dioxide 23 mmol/L (21-32); Chloride 108 mmol/L (98-107); GFR African American 71 mL/min; GFR Non-African American 59 mL/min; Potassium 3.7 mmol/L (3.5-5.1); Sodium 137 mmol/L (136-145)
[2022-12-20 10:02] LABS: Alkaline Phosphatase 60 U/L (45-117); BUN/Creatinine Ratio 17.2; Bilirubin, Total 0.4 mg/dL (0.2-1.0); Blood Urea Nitrogen 22 mg/dL (7-18); Calcium 8.9 mg/dL (8.5-10.1); Cholesterol 171 mg/dL (< 200); Glucose 170 mg/dL (74-106); HDL Cholesterol 27 mg/dL (40-59); Total Protein 7.4 g/dL (6.4-8.2); Triglycerides 459 mg/dL (< 150)
[2022-12-20 15:03] LABS: Micro Albumin 11.3 mg/L (0-30.0)
[2022-12-22 14:00] LABS: Creatinine Clearance, Urine 94.64 mL/min (75-115)
== END | disposition home or self-care (01) ==
LOC: LAB 08:38
PROVIDERS: ATTEND Internal Medicine
DX: E11.22 Type 2 diabetes mellitus with diabetic chronic kidney disease (principal); N18.9 Chronic kidney disease, unspecified; E78.5 Hyperlipidemia, unspecified; I73.9 Peripheral vascular disease, unspecified
CPT/HCPCS: 36415; 80053; 80061; 81001; 82043; 82274; 82306; 82570; 82575; 82607; 83036; 84153; 84443; 85025

== ENCOUNTER → 2023-08-21 | Outpatient (CLI) | payer OTHER ==
[~2023-08-21] MED LIST changes: +FENO160T PO; -FENO160T8 PO; -LISI20TA28 PO; +LISI20TA56 PO
== END | disposition home or self-care (01) ==
LOC: XYW 11:41
PROVIDERS: ATTEND Internal Medicine
DX: I35.1 Nonrheumatic aortic (valve) insufficiency (principal); R07.9 Chest pain, unspecified
CPT/HCPCS: 93306

== ENCOUNTER 2023-09-05 08:45 | Day surgery (SDC) | payer OTHER ==
[2023-09-03 15:25] LABS: Basophils # (auto) 0 10 ^3/uL (0-0.2); Basophils % (auto) 0.7 % (0.0-2.0); Eosinophils # (auto) 0.4 10 ^3/uL (0-0.8); Hematocrit 33.5 % (41.0-53.0); Hemoglobin 10.7 g/dL (13.5-17.5); Lymphocytes % (auto) 13.6 % (10.0-50.0); Mean Corpuscular Hemoglobin 23.5 pg (28.0-32.0); Mean Corpuscular Hgb Conc. 31.9 g/dL (32.0-36.0); Mean Corpuscular Volume 73.7 fL (80.0-100.0); Monocytes # (auto) 0.5 10 ^3/uL (0-1.3); Monocytes % (auto) 6.8 % (0.0-12.0); Neutrophils # (auto) 5.2 10 ^3/uL (1.6-8.6); Neutrophils % (auto) 72.9 % (37.0-80.0); Red Blood Cells 4.54 10^6/uL (4.5-5.90); Red Cell Distribution Width 18.4 % (11.8-14.3); White Blood Cell 7.1 10^3/uL (4.4-10.8)
[2023-09-03 15:45] LABS: INR 1.05 (0.9-1.15); Partial Thromboplastin Time 28.9 SEC (24.5-34.5)
[2023-09-03 16:06] LABS: Alanine Aminotransferase 11 U/L (7-40); Albumin 4.4 g/dL (3.2-4.8); Alkaline Phosphatase 61 U/L (46-116); Anion Gap 9 (5-15); Aspartate Aminotransferase 10 U/L (13-40); BUN/Creatinine Ratio 15.6 (10.0-20.0); Bilirubin, Total 0.2 mg/dL (0.2-1.0); Blood Urea Nitrogen 21 mg/dL (9-23); Calcium 9.6 mg/dL (8.5-10.1); Carbon Dioxide 23 mmol/L (20-30); Chloride 109 mmol/L (98-107); Glucose 88 mg/dL (74-106); Potassium 3.9 mmol/L (3.5-5.1); Sodium 141 mmol/L (136-145); Total Protein 6.7 g/dL (5.7-8.2)
[2023-09-05] VITALS (8 sets, daily range): BP systolic 107–133; BP diastolic 62–94; PULSE 65–78; RESP 12–18; O2SAT 90–94
[~2023-09-05] VITALS: Ht 175.3 cm; Wt 86.2 kg
[~2023-09-05 08:45] MED LIST changes: +ALBU108A5 IN; +ASPI-543 PO; -DILT-29 PO; +FAMO40TA7 PO; -ICOS1CAP3 PO; +NITR0.4S29 SL; +ROSU5TAB5 PO; -SILD20TA2 PO; +TAMS0.4C36 PO
[2023-09-05] MEDS ORDERED: ANGIOMAX 250 MG VIAL IV ONE (10:26)
[2023-09-05] MEDS ORDERED: VERAPAMIL 2.5MG/ML INJ 2ML VIAL IV ONE (10:26)
[2023-09-05] MEDS ORDERED: fentaNYL CITRATE 100 MCG/2 ML VL ONE (10:26)
[2023-09-05] MEDS ORDERED: MIDAZOLAM HCL 2MG/2ML 2ml VIAL (1mg/ml) ONE (10:26)
[2023-09-05] MEDS ORDERED: LIDOCAINE 2%HCL (LOCAL ANESTH.) INJ 20ML MDV ONE (10:26)
[2023-09-05] MEDS ORDERED: HEPARIN SODIUM (PORCINE) 5000 UNITS/ML 1ML VIAL ONE (10:27)
[2023-09-05] MEDS ORDERED: SODIUM CHL 0.9% 0 ML ONE (10:27)
[2023-09-05] MEDS ORDERED: IODIXANOL 320MG/ML 100ML BTL IV ONE (10:27)
== END 2023-09-05 13:42 | disposition home or self-care (01) ==
LOC: CATH 08:45
PROVIDERS: ATTEND Internal Medicine
DX: I25.110 Atherosclerotic heart disease of native coronary artery with unstable angina pectoris (principal); I71.40 Abdominal aortic aneurysm, without rupture, unspecified; I10 Essential (primary) hypertension; I27.20 Pulmonary hypertension, unspecified; Z79.899 Other long term (current) drug therapy; Z79.01 Long term (current) use of anticoagulants
CPT/HCPCS: 36415; 80053; 85025; 85610; 85730; 93458; C1769; C1887; C1894; J1644; J2250; J3010; Q9967; 99152

== ENCOUNTER → 2023-12-24 | Outpatient (CLI) | payer OTHER ==
[2023-12-24 09:28] LABS: Basophils # (auto) 0.1 10 ^3/uL (0-0.2); Eosinophils # (auto) 0.4 10 ^3/uL (0-0.8); Mean Corpuscular Hgb Conc. 31.7 g/dL (32.0-36.0); Monocytes # (auto) 0.4 10 ^3/uL (0-1.3); Neutrophils # (auto) 4.7 10 ^3/uL (1.6-8.6); Red Blood Cells 4.59 10^6/uL (4.5-5.90); White Blood Cell 6.3 10^3/uL (4.4-10.8)
[2023-12-24 09:29] LABS: Eosinophils % (auto) 5.6 % (0.0-7.0); Hematocrit 32.1 % (41.0-53.0); Hemoglobin 10.2 g/dL (13.5-17.5); Lymphocytes # (auto) 0.8 10 ^3/uL (0.4-5.4); Mean Corpuscular Hemoglobin 22.2 pg (28.0-32.0); Monocytes % (auto) 6.4 % (0.0-12.0); Red Cell Distribution Width 18.4 % (11.8-14.3)
[2023-12-24 09:44] LABS: Urine Bacteria NONE SEEN /hpf (None Seen); Urine Blood Negative /uL (Negative); Urine Clarity Clear (Clear); Urine Color Yellow (Yellow); Urine Protein, UAD Negative (Negative); Urine Specific Gravity 1.022 (1.001-1.035); Urine Urobilinogen Normal (Negative); Urine WBC <1 /hpf (0 - 3)
[2023-12-24 10:07] LABS: Alanine Aminotransferase 11 U/L (7-40); Albumin 4.5 g/dL (3.2-4.8); Alkaline Phosphatase 56 U/L (46-116); Anion Gap 7 (5-15); Aspartate Aminotransferase 12 U/L (13-40); Bilirubin, Total 0.5 mg/dL (0.2-1.0); Blood Urea Nitrogen 18 mg/dL (9-23); Calcium 9.3 mg/dL (8.5-10.1); Carbon Dioxide 25 mmol/L (20-30); Chloride 110 mmol/L (98-107); Cholesterol 147 mg/dL (< 200); Glucose 117 mg/dL (74-106); HDL Cholesterol 25 mg/dL (40-59); LDL Cholesterol 66 mg/dL (< 100); Sodium 142 mmol/L (136-145); Triglycerides 344 mg/dL (< 150)
[2023-12-24 10:08] LABS: Total Protein 6.9 g/dL (5.7-8.2)
== END | disposition home or self-care (01) ==
LOC: LAB 09:04
PROVIDERS: ATTEND Internal Medicine
DX: N18.9 Chronic kidney disease, unspecified (principal); E11.22 Type 2 diabetes mellitus with diabetic chronic kidney disease; E55.9 Vitamin D deficiency, unspecified
CPT/HCPCS: 36415; 80053; 80061; 81001; 82043; 82306; 83036; 85025

== ENCOUNTER → 2024-05-22 | Outpatient (CLI) | payer OTHER ==
[2024-05-22 11:00] LABS: Creatinine, Urine 116.75 mg/dL (30.0-125.0)
[2024-05-22 11:12] LABS: Chloride 111 mmol/L (98-107); Potassium 4.2 mmol/L (3.5-5.1); Sodium 141 mmol/L (136-145)
[2024-05-22 11:13] LABS: Anion Gap 8 (5-15); Calcium 9.2 mg/dL (8.7-10.4); Carbon Dioxide 22 mmol/L (20-30)
[2024-05-22 11:18] LABS: BUN/Creatinine Ratio 16.9 (10.0-20.0); Blood Urea Nitrogen 22 mg/dL (9-23); Glucose 118 mg/dL (74-106)
== END | disposition home or self-care (01) ==
LOC: LAB 10:17
PROVIDERS: ATTEND Internal Medicine
DX: E11.22 Type 2 diabetes mellitus with diabetic chronic kidney disease (principal); N18.31 Chronic kidney disease, stage 3a
CPT/HCPCS: 36415; 80048; 82043; 82570; 83036

== ENCOUNTER 2024-08-08 07:58 | Day surgery (SDC) | payer OTHER ==
[2024-08-01 10:48] LABS: Urine Bacteria None Seen /hpf (None Seen)
[2024-08-01 11:09] LABS: Basophils # (auto) 0.1 10 ^3/uL (0-0.2); Basophils % (auto) 1.2 % (0.0-2.0); Eosinophils # (auto) 0.5 10 ^3/uL (0-0.8); Lymphocytes # (auto) 0.8 10 ^3/uL (0.4-5.4); Mean Corpuscular Volume 66.8 fL (80.0-100.0); Nucleated Red Blood Cells % 0.1 %
[2024-08-01 11:10] LABS: Eosinophils % (auto) 7.8 % (0.0-7.0); Hematocrit 32.1 % (41.0-53.0); Hemoglobin 10.4 g/dL (13.5-17.5); Lymphocytes % (auto) 12.7 % (10.0-50.0); Mean Corpuscular Hemoglobin 21.6 pg (28.0-32.0); Mean Corpuscular Hgb Conc. 32.3 g/dL (32.0-36.0); Monocytes # (auto) 0.5 10 ^3/uL (0-1.3); Monocytes % (auto) 7.4 % (0.0-12.0); Neutrophils # (auto) 4.3 10 ^3/uL (1.6-8.6); Neutrophils % (auto) 70.9 % (37.0-80.0); Platelet Count (auto) 197 10^3/uL (140-450); White Blood Cell 6.1 10^3/uL (4.4-10.8)
[2024-08-01 11:12] LABS: Urine Blood Negative /uL (Negative); Urine Clarity Clear (Clear); Urine Color Light-Yellow (Yellow); Urine Protein, UAD TRACE (Negative); Urine Specific Gravity 1.022 (1.001-1.035); Urine Urobilinogen Normal (Negative); Urine WBC 1 /hpf (0 - 3)
[2024-08-01 11:15] LABS: Red Cell Distribution Width 20.3 % (11.8-14.3)
[2024-08-01 11:27] LABS: INR 1.04 (0.9-1.15); Partial Thromboplastin Time 26.8 SEC (24.5-34.5)
[2024-08-01 11:44] LABS: Alanine Aminotransferase 12 U/L (7-40); Albumin 4.8 g/dL (3.2-4.8); Alkaline Phosphatase 88 U/L (46-116); Anion Gap 7 (5-15); Aspartate Aminotransferase 8 U/L (13-40); Bilirubin, Total 0.3 mg/dL (0.2-1.0); Blood Urea Nitrogen 21 mg/dL (9-23); Calcium 9.9 mg/dL (8.7-10.4); Carbon Dioxide 25 mmol/L (20-31); Chloride 110 mmol/L (98-107); Glucose 240 mg/dL (74-106); Potassium 5.2 mmol/L (3.5-5.1); Sodium 142 mmol/L (136-145); Total Protein 7.4 g/dL (5.7-8.2)
[~2024-08-08] VITALS: Ht 175.3 cm; Wt 87.1 kg
[~2024-08-08 07:58] MED LIST changes: -METF-372 PO; -TAMS0.4C36 PO
[2024-08-08] MEDS ORDERED: PROPOFOL 10 MG/ML 20 ML IV ONE ×2 (09:13→10:19)
[2024-08-08] MEDS ORDERED: LIDOCAINE 2% (LOCAL ANESTH.) PF 5ml SDV ONE (09:13)
[2024-08-08 10:32] VITALS: PULSE 97; RESP 20; TEMP 98.7; O2SAT 97
[2024-08-08 11:05] VITALS: BP 118/63; PULSE 89; RESP 15; O2SAT 95
== END 2024-08-08 11:13 | disposition home or self-care (01) ==
LOC: GI 07:58
PROVIDERS: ATTEND Internal Medicine Gastroenterology
DX: D50.9 Iron deficiency anemia, unspecified (principal); K64.2 Third degree hemorrhoids; R13.12 Dysphagia, oropharyngeal phase; K29.50 Unspecified chronic gastritis without bleeding; K31.A0 Gastric intestinal metaplasia, unspecified; K44.9 Diaphragmatic hernia without obstruction or gangrene; K25.9 Gastric ulcer, unspecified as acute or chronic, without hemorrhage or perforation; K21.00 Gastro-esophageal reflux disease with esophagitis, without bleeding; J45.909 Unspecified asthma, uncomplicated; I10 Essential (primary) hypertension; Z87.891 Personal history of nicotine dependence; Z88.8 Allergy status to other drugs, medicaments and biological substances; Z79.899 Other long term (current) drug therapy; Z98.890 Other specified postprocedural states; Z86.0100 Personal history of colon polyps, unspecified
CPT/HCPCS: 36415; 43239; 43450; 45378; 80053; 81001; 82962; 85025; 85610; 85730; 88305; 88312; 88342; J2003; J2704; J7030

== ENCOUNTER → 2024-09-16 | Outpatient (CLI) | payer OTHER ==
[~2024-09-16] MED LIST changes: +AMIT25TA20 PO; +FAMO20TA10 PO; +INS7030I SC; +METF-370 PO; +NYST-23 TOP; +PANT40T PO; +TAMS0.4C39 PO; +TRIA0.1P2 TOP
[2024-09-16 15:11] LABS: Basophils # (auto) 0.1 10 ^3/uL (0-0.2); Basophils % (auto) 1.1 % (0.0-2.0); Eosinophils # (auto) 0.4 10 ^3/uL (0-0.8); Eosinophils % (auto) 5.8 % (0.0-7.0); Hematocrit 30.7 % (41.0-53.0); Hemoglobin 9.9 g/dL (13.5-17.5); Lymphocytes # (auto) 0.9 10 ^3/uL (0.4-5.4); Mean Corpuscular Hemoglobin 21.6 pg (28.0-32.0); Mean Corpuscular Hgb Conc. 32.2 g/dL (32.0-36.0); Monocytes # (auto) 0.4 10 ^3/uL (0-1.3); Monocytes % (auto) 6.1 % (0.0-12.0); Neutrophils # (auto) 5.3 10 ^3/uL (1.6-8.6); Nucleated Red Blood Cells % 0.1 %; Platelet Count (auto) 154 10^3/uL (140-450); Red Blood Cells 4.59 10^6/uL (4.5-5.90); Red Cell Distribution Width 19.9 % (11.8-14.3); White Blood Cell 7.1 10^3/uL (4.4-10.8)
[2024-09-16 15:26] LABS: INR 1.06 (0.9-1.15); Partial Thromboplastin Time 27.1 SEC (24.5-34.5); Prothrombin Time 11.2 sec (9.3-11.8)
[2024-09-16 15:44] LABS: Alanine Aminotransferase 12 U/L (7-40); Albumin 4.4 g/dL (3.2-4.8); Alkaline Phosphatase 73 U/L (46-116); Anion Gap 9 (5-15); Aspartate Aminotransferase 10 U/L (13-40); BUN/Creatinine Ratio 11.5 (10.0-20.0); Bilirubin, Total 0.3 mg/dL (0.2-1.0); Blood Urea Nitrogen 18 mg/dL (9-23); Calcium 9.3 mg/dL (8.7-10.4); Carbon Dioxide 24 mmol/L (20-31); Chloride 108 mmol/L (98-107); Glucose 132 mg/dL (74-106); Potassium 4.1 mmol/L (3.5-5.1); Sodium 141 mmol/L (136-145); Total Protein 6.9 g/dL (5.7-8.2)
== END | disposition home or self-care (01) ==
LOC: LAB 14:49
PROVIDERS: ATTEND Internal Medicine
DX: Z01.812 Encounter for preprocedural laboratory examination (principal)
CPT/HCPCS: 36415; 80053; 85025; 85610; 85730

== ENCOUNTER 2024-09-17 11:31 | Inpatient (IN) | payer OTHER ==
[~2024-09-17] VITALS: Ht 175.3 cm; Wt 88.6 kg
[2024-09-17] VITALS (12 sets, daily range): BP systolic 114–176; BP diastolic 68–83; PULSE 84–93; RESP 11–18; TEMP 97.7–98.5; O2SAT 92–97
[~2024-09-17 11:31] MED LIST changes: -ASPI-543 PO; -FAMO40TA7 PO; -INSU70IN3 SC; -ROSU5TAB5 PO
[2024-09-17] MEDS: ANGIOMAX 250 MG VIAL IV ONE (14:53)
[2024-09-17] MEDS: fentaNYL CITRATE 100 MCG/2 ML VL ONE (14:53)
[2024-09-17] MEDS: LIDOCAINE 2%HCL (LOCAL ANESTH.) INJ 20ML MDV ONE (14:54)
[2024-09-17] MEDS: SODIUM CHL 0.9% 50 ML ONE (14:54)
[2024-09-17] MEDS: MIDAZOLAM HCL 2MG/2ML 2ml VIAL (1mg/ml) ONE (14:54)
[2024-09-17] MEDS: NITROGLYCERIN 0.4MG/DOSE SPRAY 4.9GM ONE (15:51)
--- NOTE | 2024-09-17 16:33 | DVHOP2 ---
Operative Report - 2 Report Details Date: 09/17/24 Preop Diagnosis: Peripheral vascular disease Postop Diagnosis: Successful angioplasty of proximal superficial femoral artery Surgeon: Ricco Fuchs MD Anesthesiologist: Conscious sedation Anesthesia: Mac, Local Consent: The patient was informed of the risks and benefits of the procedure. These include but are not limited to complications of anesthesia, postoperative infection, incomplete relief of symptoms, recurrence of symptoms, damage to blood vessels, nerves and tendons, deep venous thrombosis, pulmonary embolism and possible need for repeat surgery in the future. Complications: No complications Estimated Blood Loss: 20 cc Findings: SFA stenosis Indications for Surgery: Claudication Name of Procedure Performed Peripheral angiography and FLORIST MANAGER of the right proximal SFA Procedure Details Procedure Details: Prior local anesthesia with 2% lidocaine to the left groin and full informed consent obtained with fluoroscopic and ultrasound guidance we were able to gain access into the superficial femoral artery/common femoral of the left side. We placed a six Turkmen sheath followed by a angiographic evaluation of left lower extremity with runoff to the level of the feet. We then performed angiography angiography of the iliacs and contralateral placement of a rim catheter through which he runoff was also performed. Subsequent to this we performed and jaw angioplasty by placing a 45 cm six Turkmen destination catheter from the right from the left common femoral to the right iliac and common femoral artery. Angioplasty as will be delineated below. Hemodynamics aortic blood pressure was 130 over 80. Angiographic evaluation: The femoral artery has moderate plaquing of 40-50%. There is moderate plaquing of the left superficial femoral artery. There is mild plaquing of the popliteal. Left tibioperoneal trunk gives rise to the anterior and posterior tibial artery as well as a peroneal with runoff of the feet bilateral with the peroneal and anterior tibial as well as posterior tibial arteries. The left common iliac shows mild plaquing. The right iliac has no stenosis. The external iliac in the superior in the common femoral are within normal limits. The superficial femoral artery proximally below the acetabular has an 80% stenosis. There is a 60-70% stenosis at the mid superficial femoral artery and a tandem lesion just distal to that. The popliteal and tibioperoneal trunk are normal. The tibioperoneal trunk is rest of the anterior and posterior tibials as a peroneal which are all pain to the level of the feet. As mentioned above a destination sheath was placed into the left femoral artery crossing over the horn contralaterally. We had a advantage wire across the area of the stenosis and we advanced a 5 x 40 mm balloon by [employer] This was dilated to approximately 10 atmospheres on three occasions. There was notable improvement in flow without thrombus formation under dissection. There was ex cellent antegrade flow. No abnormalities were noted. The sheaths were then pulled. A Perclose device was attempted however there was in proper apposition for which manual pressure was held for the left femoral artery. Impression mild peripheral vascular disease with significant stenosis of the proximal SFA of the right lower extremity resolved with angioplasty alone. Patient tolerated procedure well with no complications. Recommendations: Continue current medical therapy ambulate and avoidance of salt and smoking. Condition Good Disposition Still a Patient Date of Service: Sep 17, 2024 Billing Provider: RICCO FUCHS Sr., MD Cardiology Common Codes: 38065-WCGMTEI INP/OBS CARE (High) Peripheral Procedures Codes: 52983-RVRFWGRAMG W/TRANS ANGPLASTY RICCO FUCHS Sr., MD Sep 17, 2024 16:33
[2024-09-17] MEDS ORDERED: MORPHINE SULFATE INJ 2 MG/ml SYRG IV PRN ×2 (19:45→20:45)
[2024-09-17] MEDS ORDERED: NITROGLYCERIN 0.4 MG SL TAB SL PRN (19:45)
--- NOTE | 2024-09-17 20:34 | DVHHPRES ---
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 The pain has been progressively worsening and has rendered the patient unable to walk or stand without assistance. To mobilize, he has been using a mobility cart. He described the pain as excruciating, constant. Due to the severity of his symptoms, the patient underwent angioplasty of the right leg today, addressing 70-75% stenosis of the right superficial femoral artery and 75-99% stenosis of the common femoral artery noted on arterial ultrasound. Tomorrow, he is scheduled to undergo angioplasty of the left leg to address 30-40% stenosis of the left superficial femoral artery. To minimize the risk of contrast-induced nephropathy during angiography and intervention, the patient has been started on intravenous normal saline (NS) hydration. He denies smoking, alcohol use, or illicit drug use. Review of Systems Review of Systems Constitutional: No: Fever, Chills, Sweats, Weakness, Malaise, Other Eyes: No: Pain, Vision change, Conjunctivae inflammation, Eyelid inflammation, Other, Redness ENT: No: Ear pain, Ear discharge, Nose pain, Nose discharge, Nose congestion, Mouth pain, Mouth swelling, Throat pain, Throat swelling, Other Respiratory: No Wheezing, Hemoptysis, Pleuritic Pain, Sputum, Wheezing, Other Cardiovascular: No: Chest Pain, Palpitations, Orthopnea, Paroxysmal Noc. Dyspnea, Edema, Lt Headedness, Other Gastrointestinal: No: Nausea, Vomiting, Abdominal Pain, Diarrhea, Constipation, Melena, Hematochezia, Other Musculoskeletal: No: other, neck pain, shoulder pain, arm pain, back pain, hand pain, leg pain, foot pain Neurological:; No: Weakness, Numbness, Incoordination, Change in speech, Confusion, Seizures Allergies: Coded Allergies: Gabapentin (Verified Allergy, Mild, 09/16/24) Atorvastatin (Verified Allergy, Unknown, 09/16/24) Pregabalin (Verified Allergy, Unknown, 09/16/24) Simvastatin (Verified Allergy, Unknown, 09/16/24) Empagliflozin (Unverified Adverse Reaction, Mild, yeast infection, 09/16/24) Medications Current Medications Medications Dose Ordered Sig/Cary Route Start Time Stop Time Status Last Admin Dose Admin Nitroglycerin 0.4 mg Q5MINP PRN SL 09/17/24 19:45 Morphine Sulfate 2 mg Q30M PRN IV 09/17/24 19:45 Exam Vital Signs Vital Signs Date Time Temp Pulse Resp B/P (MAP) Pulse Ox O2 Delivery O2 Flow Rate FiO2 09/17/24 20:00 88 13 166/83 (110) 97 09/17/24 16:12 97.7 97.7 Exam Examination General Appearance: Alert, Oriented X3, Cooperative, No acute distress HEENT: EOMI Respiratory: Clear to auscultation, Normal air movement Cardiovascular: Regular rate, Normal S1, Normal S2 Abdominal: Normal bowel sounds Extremities: No cyanosis, No edema, Normal pulses, No tenderness/swelling Skin: No rashes, No breakdown Neuro: Normal speech, Strength at 5/5 X4 ext, Normal tone, Sensation decreased because of neuropathy, Cranial nerves 3-12 NL, Reflexes 2+ Psych/Mental Status: Mental status NL, Mood NL Assessment/Plan Assessment/Plan #Peripheral Artery Disease s/p angioplasty -Right leg angioplasty successfully performed today; left leg scheduled for to cypress. - Post-procedure monitoring for complications (e.g., bleeding, infection, or limb ischemia). #Prevention of Contrast-Induced Nephropathy: #VANESSA on CKD stage III - Continue IV normal saline hydration pre- and post-procedure. - Monitor renal function with serial serum creatinine and electrolytes. - Avoid nephrotoxic agents. #Type 2 diabetes mellitus - Monitor blood glucose levels closely during hospitalization. - Ensure adequate glycemic control with sliding scale insulin as needed. #Dyslipidemia: - Continue high-intensity statin therapy (e.g., atorvastatin). #Hypertension Management: - Monitor and maintain BP <130/80 mmHg. #Education and lifestyle modifications: - Security Operations Center Analyst the patient on the importance of strict glycemic control, blood p ressure management, and adherence to antiplatelet and statin therapy to prevent progression of PAD. - Reinforce the need for lifestyle modifications, including a heart-healthy diet and regular follow-up care. Case discussed with Dr. Trotter Goals of care discussed with the patient for 34 minutes. Code status: Full code Plan discussed with: Patient My Orders Orders - RAMIRO BUNDY Procedure Category Date Status Time Code Status CODE 09/17/24 Transmitted 20:32 0.9% Ns 1000 Ml PHA 09/17/24 Transmitted 20:45 Complete Blood Count LAB 09/18/24 Verified 04:00 Comprehensive LAB 09/18/24 Verified Metabolic Panel 04:00 Cardiac DIET 09/18/24 Transmitted Diet-2gna,Lofat,Lochol Breakfast Acetaminophen Tablet PHA 09/17/24 Transmitted (Tylenol Tablet) 20:45 Morphine Sulfate PHA 09/17/24 Transmitted Injection 20:45 Date of Service: Sep 17, 2024 Billing Provider: KODI TROTTER MD Common Visit Codes: 19787-ULUPYMT INP/OBS CARE (MOD) Secondary Visit Codes: 54499-[id number] CARE PLAN 30 MINUTES RAMIRO BUNDY RESIDENT Sep 17, 2024 20:34 KODI TROTTER MD Sep 18, 2024 19:07
[2024-09-17] MEDS ORDERED: ACETAMINOPHEN 325 MG TAB PO PRN (20:45)
[2024-09-17] MEDS: SODIUM CHLORIDE 0.9% 1,000 ML IV SCH (20:45)
[2024-09-17] MEDS: SODIUM CHLORIDE 0.9% 500 ML IV ONE (23:30)
[2024-09-18 01:00] VITALS: BP 149/69; PULSE 93; RESP 18; TEMP 97.7; O2SAT 95
[2024-09-18 05:00] VITALS: BP 139/65; PULSE 83; RESP 20; TEMP 98; O2SAT 96
[2024-09-18] MEDS: SODIUM CHLORIDE 0.9% 2,100 ML IV ONE (06:00)
[2024-09-18 07:05] LABS: Eosinophils # (auto) 0.3 10 ^3/uL (0-0.8); Hemoglobin 9.1 g/dL (13.5-17.5); Red Cell Distribution Width 19.8 % (11.8-14.3)
[2024-09-18 07:08] LABS: Basophils # (auto) 0.1 10 ^3/uL (0-0.2); Eosinophils % (auto) 4.8 % (0.0-7.0); Hematocrit 28.5 % (41.0-53.0); Lymphocytes # (auto) 0.5 10 ^3/uL (0.4-5.4); Lymphocytes % (auto) 8.1 % (10.0-50.0); Mean Corpuscular Hemoglobin 21.3 pg (28.0-32.0); Mean Corpuscular Hgb Conc. 31.9 g/dL (32.0-36.0); Mean Corpuscular Volume 66.8 fL (80.0-100.0); Monocytes # (auto) 0.5 10 ^3/uL (0-1.3); Monocytes % (auto) 6.7 % (0.0-12.0); Neutrophils # (auto) 5.4 10 ^3/uL (1.6-8.6); Neutrophils % (auto) 79.4 % (37.0-80.0); Nucleated Red Blood Cells % 0.1 %; Platelet Count (auto) 139 10^3/uL (140-450); Red Blood Cells 4.26 10^6/uL (4.5-5.90); White Blood Cell 6.8 10^3/uL (4.4-10.8)
[2024-09-18 07:21] LABS: Alanine Aminotransferase 12 U/L (7-40); Albumin 4.3 g/dL (3.2-4.8); Alkaline Phosphatase 65 U/L (46-116); Anion Gap 8 (5-15); Aspartate Aminotransferase < 8 U/L (13-40); BUN/Creatinine Ratio 10.4 (10.0-20.0); Blood Urea Nitrogen 14 mg/dL (9-23); Calcium 9.7 mg/dL (8.7-10.4); Carbon Dioxide 26 mmol/L (20-31); Chloride 107 mmol/L (98-107); Glucose 215 mg/dL (74-106); Potassium 4.5 mmol/L (3.5-5.1); Sodium 141 mmol/L (136-145)
[2024-09-18 07:22] LABS: Bilirubin, Total 0.4 mg/dL (0.2-1.0); Total Protein 6.6 g/dL (5.7-8.2)
[2024-09-18 08:00] VITALS: PULSE 110
[2024-09-18 08:09] LABS: Platelet Estimate Adequate
[2024-09-18 08:10] LABS: Hypochromia Moderate
[2024-09-18 08:12] LABS: Giant Platelets Few
[2024-09-18 08:48] VITALS: BP 147/88; PULSE 92; RESP 17; TEMP 97.7; O2SAT 91
[2024-09-18 13:37] VITALS: BP 154/74; PULSE 95; RESP 16; TEMP 97.8; O2SAT 94
--- NOTE | 2024-09-18 14:34 | DVHDS2 ---
Discharge Summary Date of Admission Sep 17, 2024 at 19:57 Date of Discharge: Sep 18, 2024 Labs/Diagnostic Data: Laboratory Results Test 09/18/24 09:12 09/18/24 06:28 Lactic Acid Level 1.9 mmol/L (0.4-2.0) White Blood Count 6.8 10^3/uL (4.4-10.8) Red Blood Count 4.26 10^6/uL (4.5-5.90) Hemoglobin 9.1 g/dL (13.5-17.5) Hematocrit 28.5 % (41.0-53.0) Mean Corpuscular Volume 66.8 fL (80.0-100.0) Mean Corpuscular Hemoglobin 21.3 pg (28.0-32.0) Mean Corpuscular Hemoglobin Concent 31.9 g/dL (32.0-36.0) Red Cell Distribution Width 19.8 % (11.8-14.3) Platelet Count 139 10^3/uL (140-450) Mean Platelet Volume 8.4 fL (6.9-10.8) Neutrophils (%) (Auto) 79.4 % (37.0-80.0) Lymphocytes (%) (Auto) 8.1 % (10.0-50.0) Monocytes (%) (Auto) 6.7 % (0.0-12.0) Eosinophils (%) (Auto) 4.8 % (0.0-7.0) Basophils (%) (Auto) 1.0 % (0.0-2.0) Neutrophils # (Auto) 5.4 10 ^3/uL (1.6-8.6) Lymphocytes # (Auto) 0.5 10 ^3/uL (0.4-5.4) Monocytes # (Auto) 0.5 10 ^3/uL (0-1.3) Eosinophils # (Auto) 0.3 10 ^3/uL (0-0.8) Basophils # (Auto) 0.1 10 ^3/uL (0-0.2) Nucleated Red Blood Cells 0.1 % Platelet Estimate Adequate Giant Platelets Few Hypochromasia (manual) Moderate Microcytosis Marked Sodium Level 141 mmol/L (136-145) Potassium Level 4.5 mmol/L (3.5-5.1) Chloride Level 107 mmol/L (98-107) Carbon Dioxide Level 26 mmol/L (20-31) Anion Gap 8 (5-15) Blood Urea Nitrogen 14 mg/dL (9-23) Creatinine 1.35 mg/dL (0.700-1.30) Glomerular Filtration Rate Calc 55 mL/min (>90) BUN/Creatinine Ratio 10.4 (10.0-20.0) Serum Glucose 215 mg/dL (74-106) Calcium Level 9.7 mg/dL (8.7-10.4) Total Bilirubin 0.4 mg/dL (0.2-1.0) Aspartate Amino Transferase (AST) < 8 U/L (13-40) Alanine Aminotransferase (ALT) 12 U/L (7-40) Alkaline Phosphatase 65 U/L (46-116) Total Protein 6.6 g/dL (5.7-8.2) Albumin 4.3 g/dL (3.2-4.8) Other Laboratory Tests 09/18/24 06:28 Brief Hx & Hospital Course: See Operative report below. See me in clinic in 1 week. Operations or Procedures Date: 09/17/24 Preop Diagnosis: Peripheral vascular disease Postop Diagnosis: Successful angioplasty of proximal superficial femoral artery Surgeon: Cedrick Fuchs MD Anesthesiologist: Conscious sedation Anesthesia: Mac, Local Consent: The patient was informed of the risks and benefits of the procedure. These include but are not limited to complications of anesthesia, postoperative infection, incomplete relief of symptoms, recurrence of symptoms, damage to blood vessels, nerves and tendons, deep venous thrombosis, pulmonary embolism and possible need for repeat surgery in the future. Complications: No complications Estimated Blood Loss: 20 cc Findings: SFA stenosis Indications for Surgery: Claudication Name of Procedure Performed Peripheral angiography and SPECTROSCOPIST of the right proximal SFA Procedure Details Procedure Details: Prior local anesthesia with 2% lidocaine to the left groin and full informed consent obtained with fluoroscopic and ultrasound guidance we were able to gain access into the superficial femoral artery/common femoral of the left side. We placed a six Gu[place]ian sheath followed by a angiographic evaluation of left lower extremity with runoff to the level of the feet. We then performed angiography angiography of the iliacs and contralateral placement of a rim catheter through which he runoff was also performed. Subsequent to this we performed and jaw angioplasty by placing a 45 cm six Guamanian destination catheter from the right from the left common femoral to the right iliac and common femoral artery. Angioplasty as will be delineated below. Hemodynamics aortic blood pressure was 130 over 80. Angiographic evaluation: The femoral artery has moderate plaquing of 40-50%. There is moderate plaquing of the left superficial femoral artery. There is mild plaquing of the popliteal. Left tibioperoneal trunk gives rise to the anterior and posterior tibial artery as well as a peroneal with runoff of the feet bilateral with the peroneal and anterior tibial as well as posterior tibial arteries. The left common iliac shows mild plaquing. The right iliac has no stenosis. The external iliac in the superior in the common femoral are within normal limits. The superficial femoral artery proximally below the acetabular has an 80% stenosis. There is a 60-70% stenosis at the mid superficial femoral artery and a tandem lesion just distal to that. The popliteal and tibioperoneal trunk are normal. The tibioperoneal trunk is rest of the anterior and posterior tibials as a peroneal which are all pain to the level of the feet. As mentioned above a destination sheath was placed into the left femoral artery crossing over the horn contralaterally. We had a advantage wire across the area of the stenosis and we advanced a 5 x 40 mm balloon by [employer]. This was dilated to approximately 10 atmospheres on three occasions. There was notable improvement in flow without thrombus formation under dissection. There was excellent antegrade flow. No abnormalities were noted. The sheaths were then pulled. A Perclose device was attempted however there was in proper apposition for which manual pressure was held for the left femoral artery. Impression mild peripheral vascular disease with significant stenosis of the proximal SFA of the right lower extremity resolved with angioplasty alone. Patient tolerated procedure well with no complications. Recommendations: Continue current medical therapy ambulate and avoidance of salt and smoking. Condition Good Condition at Discharge: Good Final Diagnosis/Problems List Successful angioplasty of proximal superficial femoral artery Discharge Disposition: Home Discharge Instruct/Medications Diet: Consistent carbohydrate, Cardiac 2g Na,low cholest (2 gm sodium, low cholesterol) Activity: Light activity Follow Up/Referral: Dr. Fuchs in 1 week Discharge Statement: "Patient was advised to return to the ER or call 911 if any headaches, dizziness, shortness of breath, chest pain, abdominal pain, bleeding, fevers, or worsening of medical condition. Patient was counseled about treatment plan, medications, possible side effects, patientverbalized understanding. All questions were answered to the best of my ability. This discharge took greater then 30 minutes in planning, reviewing documentation, counseling the patient, and discussing with other team members." ASSESSMENT ASSESSMENT Assessment Successful angioplasty of proximal superficial femoral artery Date of Service: Sep 18, 2024 Billing Provider: KODI TROTTER MD Common Visit Codes: 03968-TCH/OBS DISCH DAY >30min KDOI TROTTER MD Sep 18, 2024 14:34
[2024-09-18 17:29] VITALS: BP 149/76; PULSE 104; RESP 18; TEMP 97.2; O2SAT 96
== END 2024-09-18 17:55 | disposition home or self-care (01) | DRG 253 ==
LOC: CATH 11:31 → TELE 19:57 → TELE-CENTR 20:20
PROVIDERS: ADMIT Hospitalist; ATTEND Internal Medicine
PROC: 047K3ZZ Dilation of Right Femoral Artery, Percutaneous Approach (ICD-10-PCS; principal; 2024-09-17)
PROC: B41FYZZ Fluoroscopy of Right Lower Extremity Arteries using Other Contrast (ICD-10-PCS; 2024-09-17)
DX: I70.291 Other atherosclerosis of native arteries of extremities, right leg (principal); N18.4 Chronic kidney disease, stage 4 (severe); E11.42 Type 2 diabetes mellitus with diabetic polyneuropathy; E78.5 Hyperlipidemia, unspecified; J44.9 Chronic obstructive pulmonary disease, unspecified; E11.51 Type 2 diabetes mellitus with diabetic peripheral angiopathy without gangrene; E11.22 Type 2 diabetes mellitus with diabetic chronic kidney disease; Z88.8 Allergy status to other drugs, medicaments and biological substances
CPT/HCPCS: 36415; 37224; 75710; 80053; 83605; 85025; 85610; 85730; 99152; C1769; G0378; J2250

== ENCOUNTER 2024-10-14 08:16 | Emergency (ER) | payer OTHER ==
[~2024-10-14] VITALS: Ht 175.3 cm; Wt 86.3 kg
--- NOTE | 2024-10-14 08:59 | DVH ---
CLINICAL INDICATION: Fall injury TECHNIQUE: XY R KNEE 3V XRAY Comparison: None FINDINGS/IMPRESSION: : There is no evidence of acute fracture or dislocation. Degenerative spurring of the patella. Small joint effusion.
--- NOTE | 2024-10-14 09:14 | ED.PDOC ---
Musculoskeletal HPI Comments 74-year-old male with past medical history pertinent for HTN, DM, hyperlipidemia, presents to ED for right knee pain x1 hour, status mechanical trip and fall. Patient reports that he tripped at home and then fell onto a space heater. He denies any LOC, nausea, vomiting, dizziness, blurry vision, numbness, tingling. He is reporting left rib pain as well. Patient denies any shortness of breath, chest pain, abdominal pain. He currently rates his pain as 8/10 in severity. No alleviating or aggravating factors. Chief Complaint: Fall Injury Time Seen by MD: 08:26 Primary Care Provider: ROSE MARIE Reviewed Notes: Nurses Notes, Medications, Allergies Allergies: Coded Allergies: Gabapentin (Verified Allergy, Mild, 09/16/24) Atorvastatin (Verified Allergy, Unknown, 09/16/24) Pregabalin (Verified Allergy, Unknown, 09/16/24) Simvastatin (Verified Allergy, Unknown, 09/16/24) Empagliflozin (Unverified Adverse Reaction, Mild, yeast infection, 1 11/16/23) Home Meds Active Scripts Finasteride (FINASTERIDE) Cry, 5 AC PO DAILY for 30 Days, #30 CRY 6 Refills Prov:GENE SIDHU MD 03/09/22 Reported Medications Amitriptyline Hcl (Amitriptyline Hcl) 25 Mg Tab, 25 MG PO HS for insomnia, MG 09/16/24 Triamcinolone Acetonide (Triamcinolone Acetonide) 0.1 % Pst, 1 APPLIC TOP BIDP PRN for affected areas, APPLIC 09/16/24 Nystatin (Nystatin) 100,000 Unit/Gm Cre, UNIT TOP TIDP PRN for affected areas 09/16/24 Pantoprazole Sodium Sesquihydr (Pantoprazole Sodium) 40 Mg Tab, 40 MG PO DAILY, TAB 09/16/24 Famotidine (PEPCID TABLET) 20 Mg Tb, 2 TAB PO DAILY, #60 TAB 5 Refills 09/16/24 Tamsulosin Hcl (Tamsulosin Hcl) 0.4 Mg Cap, 0.4 MG PO QPM for 30 Days, MG 09/16/24 Insulin Isophane & Reg (Human) (Humulin 70/30 (70-30) 100 Unit/ml) 1 Units/0.01 Ml Inj, 40 UNITS SC QPM, INJ 09/16/24 Insulin Isophane & Reg (Human) (Humulin 70/30 (70-30) 100 Unit/ml) 1 Units/0.01 Ml Inj, 30 UNITS SC QAM, INJ 09/16/24 Metformin Hydrochloride (Metformin Hcl) 500 Mg Tab, 1000 MG PO IBID for diabetes for 30 Days, MG 09/16/24 Nitroglycerin (NTROSTAT SUBLINGUAL) 0.4 Mg Sl, 0.4 MG SL PRN for chest pain, TAB *MAY REPEAT EVERY 5 MINUTES X 3 TOTAL IF NO RELIEF, INITIATE ANALGESIC THERAPY. NOTIFY PHYSICIAN *Do not crush. 09/03/23 Albuterol Sulfate (Albuterol Sulfate Hfa) 108 Mcg/Act Aer, 90 MCG IN for SOB, AER 09/03/23 Lisinopril (Lisinopril) 20 Mg Tab, 20 MG PO BID for htn 09/03/23 [place]-3 Fatty Acids (Enteric Fish Oil 1000 mg) 1 Cap Cap, 2 CAP PO BID for HYPERLIPIDEMIA, CAP 06/19/22 Fenofibrate (Fenofibrate) 160 Mg Tab, 1 TAB PO DAILY for HYPERLIPIDEMIA 03/01/17 Clopidogrel Bisulfate (CLOPIDOGREL) 75 Mg Tab, 75 MG PO DAILY for PVD 03/01/17 Mode of Arrival: Wheelchair Past Medical History PAST MEDICAL HISTORY: DM, High Lipids, HTN Surgical History: Denies all surgeries Family History Family History: Reviewed,noncontributory to illness Social History Smoker: Quit Greater Than 1 Year, Cigarettes Alcohol: Occasionally Drugs: Denies Drug Use Lives In: Home Constitutional: denies: chills, diaphoresis, fatigue, fever, malaise, sweats, weakness, others EENTM: denies: blurred vision, double vision, ear bleeding, ear discharge, ear drainage, ear pain, ear ringing, eye pain, eye redness, hearing loss, mouth pain, mouth swelling, nasal discharge, nose bleeding, nose congestion, nose pain, photophobia, tearing, throat pain, throat swelling, voice changes, others Respiratory: reports: others (Left-sided rib pain); denies: cough, hemoptysis, orthopnea, SOB at rest, shortness of breath, SOB with excertion, stridor, wheezing Cardiovascular: denies: chest pain, dizzy spells, diaphoresis, Dyspnea on exertion, edema, irregular heart beat, left arm pain, lightheadedness, palpitations, PND, syncope, others Genitourinary: denies: burning, dysuria, flank pain, frequency, hematuria, incontinence, penile discharge, penile sore, pain, testicle pain, testicle swelling, urgency, others Neurological: denies: dizziness, fainting, headache, left sided numbness, left sided weakness, numbness, paresthesia, pre-existing deficit, right sided numbness, right sided weakness, seizure, speech problems, tingling, tremors, weakness, others Musculoskeletal: reports: joint pain; denies: back pain, gout, joint swelling, muscle pain, muscle stiffness, neck pain, others Integumetry: denies: bruises, change in color, change in hair/nails, dryness, laceration, lesions, lumps, rash, wounds, others Allergic/Immunocompromised: denies: Difficulty Healing, Frequent Infections, Hives, Itching, others Hematologic/Lymphatic: denies: anemia, blood clots, easy bleeding, easy bruising, swollen glands, others Endocrine: denies: excessive hunger, excessive sweating, excessive thirst, excessive urination, flushing, intolerance to cold, intolerance to heat, unexplained weight gain, unexplained weight loss, others Psychiatric: denies: anxiety, bipolar disorder, depression, hopeless, panic disorder, schizophrenia, sleepless, suicidal, others All Other Systems: Reviewed and Negative Physical Exam General Appearance: No Apparent Distress, Normal HEENT: Normal ENT Inspection, Pharynx Normal, TMs Normal Neck: Full Range of Motion, Non-Tender, Normal, Normal Inspection Respiratory: Chest Non-Tender, Lungs Clear, No Accessory Muscle Use, No R espiratory Distress, Normal Breath Sounds, Other (Tenderness to palpation to the left-sided ribs. No obvious deformity or bruising noted. Negative flail chest.) Cardiovascular: No Edema, No JVD, No Murmur, No Gallop, Normal Peripheral Pulses, Regular Rate/Rhythm Breast Exam: Deferred Gastrointestinal: No Organomegaly, Non Tender, No Pulsatile Mass, Normal Bowel Sounds, Soft Genitalia: Deferred Pelvic: Deferred Rectal: Deferred Extremities: No calf tenderness, Normal capillary refill, Normal inspection, Normal range of motion, Non-tender, No pedal edema Musculoskeletal : Location: Right Extremity Location: Knee (Mild tenderness to palpation to the right knee. Normal range of motion of the right knee. Full extension and flexion. Skin abrasion noted to the right knee. No obvious deformity or swelling noted.) Apperance: Normal Neurologic: Alert, service delivery supervisor II-XII nml as Tested, No Motor Deficits, Normal Affect, Normal Mood, No Sensory Deficits Cerebellar Function: Normal Reflexes: Normal Skin: Dry, Normal Color, Warm Lymphatic: No Adenopathy Was a procedure done? Was a procedure done?: No Differential Diagnosis EXT Differential Diagnosis: Fracture, Sprain, Dislocation, Contusion, Strain, Neurovascular injury, Arthritis, Bursitis X-Ray, Labs, Meds, VS Vital Signs Date Time Temp Pulse Resp B/P (MAP) Pulse Ox O2 Delivery O2 Flow Rate FiO2 10/14/24 08:20 97.8 110 20 176/84 (114) 95 X-Ray, Labs, Meds, VS Comment XR Right Knee FINDINGS/IMPRESSION: : There is no evidence of acute fracture or dislocation. Degenerative spurring of the patella. Small joint effusion. Left Ribs XR IMPRESSION: No acute cardiopulmonary disease. No displaced left rib fracture. MDM: Patient with history as above presented with right knee pain. History obtained from patient. Patient was nontoxic, stable, afebrile, ambulatory, no acute distress. Exam as above. Independently reviewed imaging. Right knee x-ray did not show acute fracture or dislocation. Left ribs x-ray was unremarkable. Reviewed external records. All findings were discussed with the patient. Differential diagnosis considered. Overall presentation is consistent with right knee contusion and abrasion as well as left rib contusion. Low suspicion for fracture, dislocation, pneumothorax. Patient was treated with [place] with improvement in symptoms. Patient was reevaluated and vital signs were reviewed. Consideration was given for admission, but the patient was stable for outpatient management. Disposition: Discussed the need to follow up diagnostics, including incidental findings. Discharged the patient with instructions to obtain outpatient follow up in 1-2 days of today's symptoms and findings, with strict return precautions if patient develops new or worsening symptoms. This medical document was created using the [employer] system. Although this document has been carefully reviewed, there may still be some phonetic and typographical errors, which are due to imperfections of the software program, and do not reflect any compromise in the patient's medical c are. Time of 1ST Reevaluation: 10:26 Reevaluation 1ST: Improved Patient Education/Counseling: Diagnosis, Treatment, Prognosis, Need For Follow Up Family Education/Counseling: No Family Present Departure 1 Departure Time of Disposition: 10:26 Impression: Primary Impression: Contusion of right knee Qualified Codes: S80.01XA - Contusion of right knee, initial encounter Additional Impressions: Abrasion, right knee, initial encounter Contusion of rib on left side Qualified Codes: S20.212A - Contusion of left front wall of thorax, initial encounter Disposition: 01 HOME / SELF CARE / HOMELESS Condition: Fair Critical Care Note Critical Care Time?: No Stability Stability form required: No Heart Score Heart Score: Heart Score Response (Comments) Value History N/A 0 EKG N/A 0 Age N/A 0 Risk Factors N/A 0 Troponin N/A 0 Total 0 MARISOL BURGOS PAC Oct 14, 2024 09:14
--- NOTE | 2024-10-14 09:54 | DVH ---
EXAMINATION: XY L RIB X RAY INDICATION: R/o fracture COMPARISON: None TECHNIQUE: Frontal view of the chest and for views of the left ribs history FINDINGS: No focal consolidation, pleural effusion or significant pneumothorax. Normal cardiomediastinal silhou ette. No displaced left rib fracture. IMPRESSION: No acute cardiopulmonary disease. No displaced left rib fracture.
[2024-10-14] MEDS: HYDROcodone-ACET 5/325MG TAB PO ONE (10:55)
[2024-10-14 11:02] VITALS: BP 155/73; PULSE 107; TEMP 97.8
[2024-10-14 11:03] VITALS: RESP 17; O2SAT 94
== END 2024-10-14 11:04 | disposition home or self-care (01) ==
LOC: ER 08:16
DX: S80.01XA Contusion of right knee, initial encounter (principal); S20.212A Contusion of left front wall of thorax, initial encounter; E11.9 Type 2 diabetes mellitus without complications; E78.5 Hyperlipidemia, unspecified; I10 Essential (primary) hypertension; Z88.8 Allergy status to other drugs, medicaments and biological substances; Z88.6 Allergy status to analgesic agent; Z79.899 Other long term (current) drug therapy; W01.0XXA Fall on same level from slipping, tripping and stumbling without subsequent striking against object, initial encounter; Y93.89 Activity, other specified; Y92.89 Other specified places as the place of occurrence of the external cause; Y99.8 Other external cause status
CPT/HCPCS: 71101; 73562

== ENCOUNTER → 2025-01-12 | Outpatient (CLI) | payer OTHER ==
[2025-01-12 07:39] LABS: Basophils # (auto) 0.1 10 ^3/uL (0-0.2); Eosinophils # (auto) 0.3 10 ^3/uL (0-0.8); Hemoglobin 8.6 g/dL (13.5-17.5); Lymphocytes # (auto) 0.8 10 ^3/uL (0.4-5.4); Mean Corpuscular Volume 64.9 fL (80.0-100.0); Nucleated Red Blood Cells % 0.1 %
[2025-01-12 07:41] LABS: Basophils % (auto) 1.1 % (0.0-2.0); Eosinophils % (auto) 5.6 % (0.0-7.0); Hematocrit 27.1 % (41.0-53.0); Lymphocytes % (auto) 12.5 % (10.0-50.0); Mean Corpuscular Hemoglobin 20.6 pg (28.0-32.0); Mean Corpuscular Hgb Conc. 31.7 g/dL (32.0-36.0); Monocytes # (auto) 0.4 10 ^3/uL (0-1.3); Monocytes % (auto) 7.3 % (0.0-12.0); Neutrophils # (auto) 4.4 10 ^3/uL (1.6-8.6); Neutrophils % (auto) 73.5 % (37.0-80.0); Platelet Count (auto) 204 10^3/uL (140-450); Red Blood Cells 4.17 10^6/uL (4.5-5.90); Red Cell Distribution Width 20.5 % (11.8-14.3)
[2025-01-12 08:40] LABS: Alanine Aminotransferase 11 U/L (7-40); Albumin 4.6 g/dL (3.2-4.8); Alkaline Phosphatase 70 U/L (46-116); Anion Gap 7 (5-15); BUN/Creatinine Ratio 13.1 (10.0-20.0); Blood Urea Nitrogen 22 mg/dL (9-23); Calcium 9.5 mg/dL (8.7-10.4); Carbon Dioxide 25 mmol/L (20-31); Chloride 108 mmol/L (98-107); Glucose 140 mg/dL (74-106); Potassium 4.3 mmol/L (3.5-5.1); Sodium 140 mmol/L (136-145); Triglycerides 590 mg/dL (< 150)
[2025-01-12 08:41] LABS: Cholesterol 171 mg/dL (< 200)
[2025-01-12 08:42] LABS: Aspartate Aminotransferase < 8 U/L (13-40); Bilirubin, Total 0.3 mg/dL (0.2-1.0); HDL Cholesterol 24 mg/dL (40-59)
[2025-01-12 11:08] LABS: Free T3 3.29 pg/mL (2.3-4.2); Free T4 (Free Thyroxine) 1.04 ng/dL (0.89-1.76)
== END | disposition home or self-care (01) ==
LOC: LAB 07:23
PROVIDERS: ATTEND Internal Medicine
DX: I10 Essential (primary) hypertension (principal); E11.51 Type 2 diabetes mellitus with diabetic peripheral angiopathy without gangrene; I73.9 Peripheral vascular disease, unspecified
CPT/HCPCS: 36415; 80053; 80061; 83036; 84439; 84443; 84481; 85025

== ENCOUNTER 2025-02-03 20:02 | Emergency (ER) | payer OTHER ==
[~2025-02-03] VITALS: Ht 175.3 cm; Wt 91.3 kg
--- NOTE | 2025-02-03 20:58 | DVH ---
EXAM: XY R 2ND TOE XRAY CLINICAL HISTORY: right 2nd toe pain COMPARISON: None TECHNIQUE: XY R 2ND TOE XRAY Findings/Impression: 3 views of the right 2nd digit. Mildly displaced fracture of the distal aspect of the 2nd proximal phalanx. Lateral subluxation of th e 2nd middle phalanx in relation to the proximal phalanx. There is no evidence of blastic or lytic lesions. No radiopaque foreign bodies.
[2025-02-03] MEDS ORDERED: ACET500T58 PO (22:53)
--- NOTE | 2025-02-03 22:53 | ED.PDOC ---
Musculoskeletal HPI Comments 74-YEAR-OLD MALE PRESENTS TO ER WITH COMPLAINTS OF RIGHT 2ND TOE PAIN X1 DAY. PATIENT REPORTS HE STARTED EXPERIENCING PAIN/SWELLING/BRUISING AND DEFORMITY TO RIGHT 2ND TOE AT 7:30 P.M. PRIOR TO ARRIVAL TO ER AT/TTP HITTING HIS RIGHT 2ND TOE AGAINST A STOOL WHILE WALKING IN HIS HOUSE. HE RATES HIS CURRENT PAIN A 7/10 TO RIGHT 2ND TOE WITHOUT RADIATION. DENIES USE OF MEDICATIONS FOR CURRENT SYMPTOMS. PATIENT PRESENTS TO ER AMBULATORY ON ARRIVAL AND REPORTS CHRONIC NUMBNESS/TINGLING TO BILATERAL LOWER EXTREMITIES FROM HISTORY OF NEUROPATHY. DENIES ANY FURTHER SYMPTOMS/COMPLAINTS Chief Complaint: Lower Extremity Time Seen by MD: 20:25 Primary Care Provider: ROSE MARIE Reviewed Notes: Nurses Notes, Medications, Allergies Allergies: Coded Allergies: Gabapentin (Verified Allergy, Mild, 09/16/24) Atorvastatin (Verified Allergy, Unknown, 09/16/24) Pregabalin (Verified Allergy, Unknown, 09/16/24) Simvastatin (Verified Allergy, Unknown, 09/16/24) Empagliflozin (Unverified Adverse Reaction, Mild, yeast infection, 09/16/24) Home Meds Active Scripts Acetaminophen (Acetaminophen) 500 Mg Tab, 500 MG PO Q4HPRN, #30 TAB 0 Refills Prov:LENCHO WOLFE 02/03/25 Finasteride (FINASTERIDE) Cry, 5 AC PO DAILY for 30 Days, #30 CRY 6 Refills Prov:GENE SIDHU MD 03/09/22 Reported Medications Amitriptyline Hcl (Amitriptyline Hcl) 25 Mg Tab, 25 MG PO HS for insomnia, MG 09/16/24 Triamcinolone Acetonide (Triamcinolone Acetonide) 0.1 % Pst, 1 APPLIC TOP BIDP PRN for affected areas, APPLIC 09/16/24 Nystatin (Nystatin) 100,000 Unit/Gm Cre, UNIT TOP TIDP PRN for affected areas 09/16/24 Pantoprazole Sodium Sesquihydr (Pantoprazole Sodium) 40 Mg Tab, 40 MG PO DAILY, TAB 09/16/24 Famotidine (PEPCID TABLET) 20 Mg Tb, 2 TAB PO DAILY, #60 TAB 5 Refills 09/16/24 Tamsulosin Hcl (Tamsulosin Hcl) 0.4 Mg Cap, 0.4 MG PO QPM for 30 Days, MG 09/16/24 Insulin Isophane & Reg (Human) (Humulin 70/30 (70-30) 100 Unit/ml) 1 Units/0.01 Ml Inj, 40 UNITS SC QPM, INJ 09/16/24 Insulin Isophane & Reg (Human) (Humulin 70/30 (70-30) 100 Unit/ml) 1 Units/0.01 Ml Inj, 30 UNITS SC QAM, INJ 09/16/24 Metformin Hydrochloride (Metformin Hcl) 500 Mg Tab, 1000 MG PO IBID for diabetes for 30 Days, MG 09/16/24 Nitroglycerin (NTROSTAT SUBLINGUAL) 0.4 Mg Sl, 0.4 MG SL PRN for chest pain, TAB *MAY REPEAT EVERY 5 MINUTES X 3 TOTAL IF NO RELIEF, INITIATE ANALGESIC THERAPY. NOTIFY PHYSICIAN *Do not crush. 09/03/23 Albuterol Sulfate (Albuterol Sulfate Hfa) 108 Mcg/Act Aer, 90 MCG IN for SOB, AER 09/03/23 Lisinopril (Lisinopril) 20 Mg Tab, 20 MG PO BID for htn 09/03/23 [place]-3 Fatty Acids (Enteric Fish Oil 1000 mg) 1 Cap Cap, 2 CAP PO BID for HYPERLIPIDEMIA, CAP 06/19/22 Fenofibrate (Fenofibrate) 160 Mg Tab, 1 TAB PO DAILY for HYPERLIPIDEMIA 03/01/17 Clopidogrel Bisulfate (CLOPIDOGREL) 75 Mg Tab, 75 MG PO DAILY for PVD 03/01/17 Mode of Arrival: Ambulatory Past Medical History PAST MEDICAL HISTORY: DM, High Lipids, HTN Surgical History: Denies all surgeries Family History Family History: Unknown Social History Smoker: Quit Greater Than 1 Year, Cigarettes Alcohol: Denies ETOH Use Drugs: Denies Drug Use Lives In: Home Constitutional: denies: chills, diaphoresis, fatigue, fever, malaise, sweats, weakness, others EENTM: denies: blurred vision, double vision, ear bleeding, ear discharge, ear drainage, ear pain, ear ringing, eye pain, eye redness, hearing loss, mouth pain, mouth swelling, nasal discharge, nose bleeding, nose congestion, nose pain, photophobia, tearing, throat pain, throat swelling, voice changes, others Respiratory: denies: cough, hemoptysis, orthopnea, SOB at rest, shortness of breath, SOB with excertion, stridor, wheezing, others Cardiovascular: denies: chest pain, dizzy spells, diaphoresis, Dyspnea on exertion, edema, irregular heart beat, left arm pain, lightheadedness, palpitations, PND, syncope, others Gastrointestinal: denies: abdomen distended, abdominal pain, blood streaked bowels, constipated, diarrhea, dysphagia, difficulty swallowing, hematemesis, melena, nausea, poor appetite, poor fluid intake, rectal bleeding, rectal pain, vomiting, others Genitourinary: denies: burning, dysuria, flank pain, frequency, hematuria, incontinence, penile discharge, penile sore, pain, testicle pain, testicle swelling, urgency, others Neurological: denies: dizziness, fainting, headache, left sided numbness, left sided weakness, numbness, paresthesia, pre-existing deficit, right sided numbness, right sided weakness, seizure, speech problems, tingling, tremors, weakness, others Musculoskeletal: reports: others ( STATED IN HPI) Integumetry: reports: others ( STATED IN HPI) Allergic/Immunocompromised: denies: Difficulty Healing, Frequent Infections, Hives, Itching, others Hematologic/Lymphatic: denies: anemia, blood clots, easy bleeding, easy bruising, swollen glands, others Endocrine: denies: excessive hunger, excessive sweating, excessive thirst, excessive urination, flushing, intolerance to cold, intolerance to heat, unexplained weight gain, unexplained weight loss, others Psychiatric: denies: anxiety, bipolar disorder, depression, hopeless, panic disorder, schizophrenia, sleepless, suicidal, others Physical Exam General Appearance: No Apparent Distress HEENT: PERRL/EOMI Neck: Full Range of Motion, Non-Tender, Normal Respiratory: Chest Non-Tender, Lungs Clear, No Accessory Muscle Use, No Respiratory Distress, Normal Breath Sounds Cardiovascular: No Murmur, No Gallop, Regular Rate/Rhythm Breast Exam: Deferred Gastrointestinal: NOT DONE Genitalia: Deferred Pelvic: Deferred Rectal: Deferred Extremities: Normal capillary refill, Normal range of motion Musculoskeletal : Extremity Location: Toe 2 (TTP/ECCHYMOSIS/MILD SWELLING AND DEFORMITY NOTED TO PROXIMAL PHALANX OF RIGHT 2ND TOE. NO NAILBED INJURY/FURTHER SKIN CHANGES N OTED. PATIENT ABLE TO MOVE ALL TOES OF RIGHT FOOT. PULSES INTACT. 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 Was a procedure done?: Yes Sedation Sedation?: No Reduction Indication: Subluxation (RIGHT 2ND TOE) Nerve Block: Digital (WITH 1% LIDOCAINE) Post-reduction x-ray show: Reduction, Good Alignment Informed consent obtained: Yes Risks/benefits/alt described: Yes Differential Diagnosis EXT Differential Diagnosis: Laceration, Strain, Neurovascular injury X-Ray, Labs, Meds, VS Vital Signs Date Time Temp Pulse Resp B/P (MAP) Pulse Ox O2 Delivery O2 Flow Rate FiO2 02/03/25 23:07 97.7 100 22 150/79 (102) 95 97.7 02/03/25 23:07 100 22 95 Room Air 02/03/25 20:10 98.5 114 17 163/80 (107) 95 98.5 PATIENT: SAMI ALBARRANCCT: [id number]: [id number] : 1950 LOC: ER ROOM / BED: / AGE / SEX: 74 / M ADM STATUS: REG ER SERVICE 24 ORDERING PHYSICIAN: LENCHO WOLFE PROCEDURE(s): RTOE2 - R 2ND TOE XRAY REASON: right 2nd toe pain ORDER NUMBER(s): [id number], ACCESSION NUMBER(s): [id number] EXAM: XY R 2ND TOE XRAY CLINICAL HISTORY: right 2nd toe pain COMPARISON: None TECHNIQUE: XY R 2ND TOE XRAY Findings/Impression: 3 views of the right 2nd digit. Mildly displaced fracture of the distal aspect of the 2nd proximal phalanx. Lateral subluxation of the 2nd middle phalanx in relation to the proximal phalanx. There is no evidence of blastic or lytic lesions. No radiopaque foreign bodies. ATED BY: STACIE NY DO DICTATED DATE/TIME: 02/03/252055 SIGNED BY: STACIE NY DO SIGNED DATE/TIME: 02/03/252055 CC: PATIENT: BOBBY ALBARRAN ACCT: [id number] UNIT: [id number] : 1950 LOC: ER ROOM / BED: / AGE / SEX: 74 / M ADM STATUS: REG ER SERVICE 50 ORDERING PHYSICIAN: LENCHO WOLFE PROCEDURE(s): RTOE2 - R 2ND TOE XRAY REASON: POST REDUCTION ORDER NUMBER(s): [id number], ACCESSION NUMBER(s): [id number] XY R 2ND TOE XRAY, February 03, 2025 INDICATION: POST REDUCTION TECHNICAL DATA: Frontal view of the foot and lateral and oblique views of the toe were obtained. COMPARISON: XY R 2ND TOE XRAY on DOS: 02/03/25 FINDINGS: Is a fracture of the head of the proximal phalanx of the 2nd digit fracture involves the proximal interphalangeal joint. IMPRESSION: 1. Fracture of the 2nd digit . ATED BY: LEONIDAS MCCLAIN MD DICTATED DATE/TIME: 02/03/252327 SIGNED BY: LEONIDAS MCCLAIN MD SIGNED DATE/TIME: 02/03/252327 CC: RIGHT 2ND TOE X-RAY REVIEWED POST REDUCTION X-RAY REVIEWED EFRAÍN TAPE AND HARD SOLE SHOE APPLIED ADVISED ON REST/NO STRENUOUS ACTIVITY, ELEVATION AND ALTERNATE ICE ON/OFF NEEDED FOR PAIN/SWELLING PATIENT NEUROVASCULARLY INTACT AND HAD IMPROVEMENT IN SYMPTOMS PRIOR TO DISCHARGE ADVISED TO FOLLOW UP WITH PCP AND PODIATRY IN 1-2 DAYS PATIENT VERBALIZED UNDERSTANDING AND AGREEABLE WITH CURRENT PLAN OF CARE ADVISED TO RETURN TO ER IMMEDIATELY IF SYMPTOMS WORSE Images Reviewed?: Images reviewed and evaluated by me Time of 1ST Reevaluation: 22:24 Reevaluation 1ST: N/A Patient Education/Counseling: Diagnosis, Treatment, Prognosis, Need For Follow Up Family Education/Counseling: No Family Present Departure 1 Departure Time of Disposition: 22:50 Impression: Primary Impression: Toe fracture, right Qualified Codes: S92.511A - Displaced fracture of proximal phalanx of right lesser toe(s), initial encounter for closed fracture Disposition: 01 HOME / SELF CARE / HOMELESS Condition: Stable e-Prescriptions Acetaminophen (Acetaminophen) 500 Mg Tab 500 MG PO Q4HPRN, #30 TAB 0 Refills Prov: LENCHO WOLFE 02/03/25 Discharged With: Friend Critical Care Note Critical Care Time?: No Stability Stability form required: No Heart Score Heart Score: Heart Score Response (Comments) Value History N/A 0 EKG N/A 0 Age N/A 0 Risk Factors N/A 0 Troponin N/A 0 Total 0 LENCHO WOLFE Feb 03, 2025 22:53
[2025-02-03 23:07] VITALS: BP 150/79; PULSE 100; RESP 22; TEMP 97.7; O2SAT 95
--- NOTE | 2025-02-03 23:30 | DVH ---
XY R 2ND TOE XRAY, February 03, 2025 INDICATION: POST REDUCTION TECHNICAL DATA: Frontal view of the foot and lateral and oblique views of the toe were obtained. COMPARISON: XY R 2ND TOE XRAY on DOS: 02/03/25 FINDINGS: Is a fracture of the head of the proximal phalanx of the 2nd digit fracture involves the proximal int erphalangeal joint. IMPRESSION: 1. Fracture of the 2nd digit .
== END 2025-02-03 23:43 | disposition home or self-care (01) ==
LOC: ER 20:02
DX: S92.511A Displaced fracture of proximal phalanx of right lesser toe(s), initial encounter for closed fracture (principal); I10 Essential (primary) hypertension; E11.9 Type 2 diabetes mellitus without complications; E78.5 Hyperlipidemia, unspecified; Z79.84 Long term (current) use of oral hypoglycemic drugs; Z79.899 Other long term (current) drug therapy; Z88.8 Allergy status to other drugs, medicaments and biological substances; W22.03XA Walked into furniture, initial encounter; Y93.01 Activity, walking, marching and hiking; Y92.098 Other place in other non-institutional residence as the place of occurrence of the external cause; Y99.8 Other external cause status
CPT/HCPCS: 28515; 73660

== ENCOUNTER 2025-02-05 08:45 | Emergency (ER) | payer OTHER ==
[~2025-02-05] VITALS: Ht 175.3 cm; Wt 92.5 kg
[~2025-02-05 08:45] MED LIST changes: +ACET500T58 PO
[2025-02-05 09:20] VITALS: BP 122/68; PULSE 97; RESP 16; TEMP 98; O2SAT 98
--- NOTE | 2025-02-05 09:28 | ED.PDOC ---
Musculoskeletal HPI Comments A 74 YEAR OLD MALE PRESENTS TO THE ED WITH CHIEF COMPLAINT OF BLISTER TO 2ND RT TOE. PATIENT REPORTS THAT HE WAS SEEN IN THE ED 2 DAYS AGO FOR A FRACTURE TO HIS RIGHT 2ND TOE, BEING REDUCED AND WRAPPED. PATIENT RELAYS THAT SINCE THEN, HE HAD NOTICED WORSENING SWELLING, BLISTERING, AND REDNESS TO HIS 2ND TOE. PATIENT DE NIES ANY PREVIOUS OPEN WOUNDS, FEVER, NUMBNESS, WEAKNESS, OR FURTHER INJURY. NO OTHER SYMPTOMS REPORTED AT THIS TIME OF CARE. Chief Complaint: Lower Extremity Time Seen by MD: 09:16 Primary Care Provider: ROSE MARIE Reviewed Notes: Nurses Notes, Medications, Allergies Allergies: Coded Allergies: Gabapentin (Verified Allergy, Mild, 09/16/24) Atorvastatin (Verified Allergy, Unknown, 09/16/24) Pregabalin (Verified Allergy, Unknown, 09/16/24) Simvastatin (Verified Allergy, Unknown, 09/16/24) Empagliflozin (Unverified Adverse Reaction, Mild, yeast infection, 09/16/24) Home Meds Active Scripts Cephalexin Monohydrate (Cephalexin) 500 Mg Cap, 1 CAP PO TID, #30 CAP Prov:JOVANNY CHANG 02/05/25 Acetaminophen (Acetaminophen) 500 Mg Tab, 500 MG PO Q4HPRN, #30 TAB 0 Refills Prov:LENCHO WOLFE 02/03/25 Finasteride (FINASTERIDE) Cry, 5 AC PO DAILY for 30 Days, #30 CRY 6 Refills Prov:GENE SIDHU MD 03/09/22 Reported Medications Amitriptyline Hcl (Amitriptyline Hcl) 25 Mg Tab, 25 MG PO HS for insomnia, MG 09/16/24 Triamcinolone Acetonide (Triamcinolone Acetonide) 0.1 % Pst, 1 APPLIC TOP BIDP PRN for affected areas, APPLIC 09/16/24 Nystatin (Nystatin) 100,000 Unit/Gm Cre, UNIT TOP TIDP PRN for affected areas 09/16/24 Pantoprazole Sodium Sesquihydr (Pantoprazole Sodium) 40 Mg Tab, 40 MG PO DAILY, TAB 09/16/24 Famotidine (PEPCID TABLET) 20 Mg Tb, 2 TAB PO DAILY, #60 TAB 5 Refills 09/16/24 Tamsulosin Hcl (Tamsulosin Hcl) 0.4 Mg Cap, 0.4 MG PO QPM for 30 Days, MG 09/16/24 Insulin Isophane & Reg (Human) (Humulin 70/30 (70-30) 100 Unit/ml) 1 Units/0.01 Ml Inj, 40 UNITS SC QPM, INJ 09/16/24 Insulin Isophane & Reg (Human) (Humulin 70/30 (70-30) 100 Unit/ml) 1 Units/0.01 Ml Inj, 30 UNITS SC QAM, INJ 09/16/24 Metformin Hydrochloride (Metformin Hcl) 500 Mg Tab, 1000 MG PO IBID for diabetes for 30 Days, MG 09/16/24 Nitroglycerin (NTROSTAT SUBLINGUAL) 0.4 Mg Sl, 0.4 MG SL PRN for chest pain, TAB *MAY REPEAT EVERY 5 MINUTES X 3 TOTAL IF NO RELIEF, INITIATE ANALGESIC THERAPY. NOTIFY PHYSICIAN *Do not crush. 09/03/23 Albuterol Sulfate (Albuterol Sulfate Hfa) 108 Mcg/Act Aer, 90 MCG IN for SOB, AER 09/03/23 Lisinopril (Lisinopril) 20 Mg Tab, 20 MG PO BID for htn 09/03/23 [place]-3 Fatty Acids (Enteric Fish Oil 1000 mg) 1 Cap Cap, 2 CAP PO BID for HYPERLIPIDEMIA, CAP 06/19/22 Fenofibrate (Fenofibrate) 160 Mg Tab, 1 TAB PO DAILY for HYPERLIPIDEMIA 03/01/17 Clopidogrel Bisulfate (CLOPIDOGREL) 75 Mg Tab, 75 MG PO DAILY for PVD 03/01/17 Information Source: Patient Mode of Arrival: Ambulatory Location: Right Extremity Location: Toe 2 Timing: Days Prehospital treatment: None Severity: Moderate Able to Move Extremity: Yes Bear Weight: Limited Pain: Moderate Mechanism: Spontaneous Circumstances: Spontaneous Onset of Symptoms: Spontaneous Symptoms: Pain, Erythema DVT Risk Factors: NONE Last Tetanus: UTD Associated signs and symptoms: Other (RIGHT 2ND TOE BLISTER ) Past Medical History PAST MEDICAL HISTORY: DM, High Lipids, HTN Surgical History: Denies all surgeries Family History Family History: Unknown Social History Smoker: Quit Greater Than 1 Year, Cigarettes Alcohol: Denies ETOH Use Drugs: Denies Drug Use Lives In: Home Constitutional: denies: chills, diaphoresis, fatigue, fever, malaise, sweats, weakness, others EENTM: denies: blurred vision, double vision, ear bleeding, ear discharge, ear drainage, ear pain, ear ringing, eye pain, eye redness, hearing loss, mouth pain, mouth swelling, nasal discharge, nose bleeding, nose congestion, nose pain, photophobia, tearing, throat pain, throat swelling, voice changes, others Respiratory: denies: cough, hemoptysis, orthopnea, SOB at rest, shortness of breath, SOB with excertion, stridor, wheezing, others Cardiovascular: denies: chest pain, dizzy spells, diaphoresis, Dyspnea on exertion, edema, irregular heart beat, left arm pain, lightheadedness, pa lpitations, PND, syncope, others Gastrointestinal: denies: abdomen distended, abdominal pain, blood streaked bowels, constipated, diarrhea, dysphagia, difficulty swallowing, hematemesis, melena, nausea, poor appetite, poor fluid intake, rectal bleeding, rectal pain, vomiting, others Genitourinary: denies: burning, dysuria, flank pain, frequency, hematuria, incontinence, penile discharge, penile sore, pain, testicle pain, testicle swelling, urgency, others Neurological: denies: dizziness, fainting, headache, left sided numbness, left sided weakness, numbness, paresthesia, pre-existing deficit, right sided numbness, right sided weakness, seizure, speech problems, tingling, tremors, weakness, others Musculoskeletal: denies: back pain, gout, joint pain, joint swelling, muscle pain, muscle stiffness, neck pain, others Integumetry: reports: others (BLISTER AND REDNESS TO RIGHT 2ND TOE); denies: bruises, change in color, change in hair/nails, dryness, laceration, lesions, lumps, rash, wounds Allergic/Immunocompromised: denies: Difficulty Healing, Frequent Infections, Hives, Itching, others Hematologic/Lymphatic: denies: anemia, blood clots, easy bleeding, easy bruising, swollen glands, others Endocrine: denies: excessive hunger, excessive sweating, excessive thirst, excessive urination, flushing, intolerance to cold, intolerance to heat, unexplained weight gain, unexplained weight loss, others Psychiatric: denies: anxiety, bipolar disorder, depression, hopeless, panic disorder, schizophrenia, sleepless, suicidal, others All Other Systems: Reviewed and Negative Physical Exam General Appearance: No Apparent Distress, Normal HEENT: Normal ENT Inspection, PERRL/EOMI, Pharynx Normal Neck: Full Range of Motion, Non-Tender, Normal, Normal Inspection Respiratory: Chest Non-Tender, Lungs Clear, No Accessory Muscle Use, No Respiratory Distress, Normal Breath Sounds Cardiovascular: No Edema, No JVD, No Murmur, No Gallop, Normal Peripheral Pulses, Regular Rate/Rhythm Breast Exam: Deferred Gastrointestinal: No Organomegaly, Non Tender, No Pulsatile Mass, Normal Bowel Sounds, Soft Genitalia: Deferred Pelvic: Deferred Rectal: Deferred Extremities: No calf tenderness, Normal capillary refill, Normal range of motion, No pedal edema, Tender (AND A BLISTER ON RIGHT 2ND TOE. 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 ) Peripheral Pulses: 2+ carotid (R), 2+ carotid (L), 2+ dorsalis pedis (R), 2+ dorsalis pedis (L) Lymphatic: No Adenopathy Was a procedure done? Was a procedure done?: Yes Sedation Sedation?: No Incision and Drainage Incision and Drainage: Other (BLISTER) Location RIGHT 2ND TOE Preparation: Saline Incision and Wound: Other (BLISTER POKED WITH A NEEDLE, FLUID DRAINED. PT FEELS BETTER. ) Informed consent obtained: No Risks/benefits/alt described: Yes Notes WRAPPED WITH STERILE DRESSING. Differential Diagnosis EXT Differential Diagnosis: Cellulitis, Other (BLISTER OF RIGHT 2ND TOE. ) X-Ray, Labs, Meds, VS Vital Signs Date Time Temp Pulse Resp B/P (MAP) Pulse Ox O2 Delivery O2 Flow Rate FiO2 02/05/25 09:20 97 16 98 02/05/25 09:20 98.0 78 17 122/68 (86) 98 98.0 02/05/25 08:57 97.5 98 16 130/70 (90) 99 97.5 Current Medications Medications (Trade) Dose Ordered Sig/Cary Route Start Time Stop Time Status Last Admin Ceftriaxone Sodium (Rocephin) 1,000 mg ONCE ONCE IM 02/05/25 09:45 02/05/25 09:46 02/05/25 09:41 X-Ray, Labs, Meds, VS Comment EXTERNAL MEDICAL RECORDS REVIEWED: 02/03/25 FOR RIGHT TOE FRACTURE INDEPENDENT HISTORIANS: [NONE] SOCIAL DETERMINANTS OF HEALTH: [NONE] LABS ORDERED: NONE REVIEWED AND INTERPRETED RESULTS: NONE IMAGING ORDERED: NONE TREATMENTS ORDERED: ROCEPHIN 1G IM PROCEDURES PERFORMED: I&D OF RIGHT 2ND TOE BLISTER. CRITICAL CARE TIME: NONE I HAVE DISCUSSED THE PATIENT WITH THE ATTENDING PHYSICIAN DR. CLINE AND HE AGREES WITH THE PATIENT'S PLAN OF CARE AND DISPOSITION. BASED ON HISTORY OF PRESENT ILLNESS, AND PHYSICAL EXAM, PATIENT WILL BE DISCHA RGED HOME. DISCUSSED PLAN FOR DISCHARGE HOME WITH RX KEFLEX. MEDICATION WARNINGS GIVEN. SHARED DECISION MAKING: DISCUSSED WITH PATIENT THAT THEIR WORKUP WAS NORMAL. PATIENT INSTRUCTED TO FOLLOW UP WITH PRIMARY CARE PROVIDER IN 1-2 DAYS FOR RE- EVALUATION OF SYMPTOMS. PATIENT VERBALIZES UNDERSTANDING TO RETURN TO ED FOR NEW OR WORSENING SYMPTOMS OR IF FOLLOW UP WITH PCP CANNOT BE OBTAINED. PATIENT FEELS COMFORTABLE GOING HOME AT THIS TIME. ALL QUESTIONS ADDRESSED AT TIME OF DISCHARGE. Time of 1ST Reevaluation: 10:00 Reevaluation 1ST: Improved Patient Education/Counseling: Diagnosis, Treatment, Need For Follow Up Family Education/Counseling: Diagnosis, Treatment, Need For Follow Up Medical Screening: No EMC Exist At This Time Departure 1 Departure Time of Disposition: 10:10 Impression: Primary Impression: Blister of second toe, right Qualified Codes: S90.424A - Blister (nonthermal), right lesser toe(s), initial encounter Disposition: HOME / SELF CARE / HOMELESS Condition: Stable Additional Instructions: FOLLOW-UP WITH PCP IN 1 TO 2 DAYS. TAKE MEDICATIONS PRESCRIBED. RETURN TO ED FOR ANY NEW OR WORSENING SYMPTOMS. e-Prescriptions Cephalexin Monohydrate (Cephalexin) 500 Mg Cap 1 CAP PO TID, #30 CAP Prov: JOVANNY CHANG 02/05/25 Discharged With: Self, Spouse Critical Care Note Critical Care Time?: No Stability Stability form required: No Heart Score Heart Score: Heart Score Response (Comments) Value History N/A 0 EKG N/A 0 Age N/A 0 Risk Factors N/A 0 Troponin N/A 0 Total 0 I personally scribed for JOVANNY CHANG ([email or web address]) on 02/05/25 at 09:28. Electronically submitted by Italo Fung ([email or web address]). I personally scribed for JOVANNY CHANG ([email or web address]) on 02/05/25 at 09:37. Electronically submitted by Italo Fung ([email or web address]). JOVANNY CHANG Feb 05, 2025 09:28
[2025-02-05] MEDS ORDERED: CEPH500C PO (09:38)
[2025-02-05] MEDS: cefTRIAXone SOD 1,000 MG VL IM ONE (09:41)
== END 2025-02-05 09:58 | disposition home or self-care (01) ==
LOC: ER 08:47
DX: S90.424A Blister (nonthermal), right lesser toe(s), initial encounter (principal); E11.9 Type 2 diabetes mellitus without complications; I10 Essential (primary) hypertension; E78.5 Hyperlipidemia, unspecified; Z87.891 Personal history of nicotine dependence; Z79.02 Long term (current) use of antithrombotics/antiplatelets; Z79.899 Other long term (current) drug therapy; Z88.8 Allergy status to other drugs, medicaments and biological substances; X58.XXXA Exposure to other specified factors, initial encounter; Y93.89 Activity, other specified; Y92.89 Other specified places as the place of occurrence of the external cause; Y99.8 Other external cause status
CPT/HCPCS: 10060; 96372; 99283; J0696

== ENCOUNTER → 2025-02-18 | Day surgery (SDC) | payer OTHER ==
[2025-02-17 14:26] LABS: Urine Bacteria None Seen /hpf (None Seen)
[2025-02-17 14:33] LABS: Urine Blood Negative /uL (Negative); Urine Clarity Clear (Clear); Urine Color Light-Yellow (Yellow); Urine Protein, UAD TRACE (Negative); Urine Specific Gravity 1.013 (1.001-1.035); Urine Squamous Epithelial Cell None Seen /hpf (<5); Urine Urobilinogen Normal (Negative); Urine WBC < 1 /HPF (0-3)
[2025-02-17 14:43] LABS: INR 1.07 (0.9-1.15); Prothrombin Time 11.3 sec (9.3-11.8)
[2025-02-17 14:56] LABS: Basophils # (auto) 0.1 10 ^3/uL (0-0.2); Hematocrit 28.7 % (41.0-53.0); Hemoglobin 8.9 g/dL (13.5-17.5); Lymphocytes # (auto) 0.7 10 ^3/uL (0.4-5.4); Mean Corpuscular Hgb Conc. 31.1 g/dL (32.0-36.0); Monocytes # (auto) 0.5 10 ^3/uL (0-1.3); White Blood Cell 6.6 10^3/uL (4.4-10.8)
[2025-02-17 14:59] LABS: Eosinophils # (auto) 0.3 10 ^3/uL (0-0.8); Eosinophils % (auto) 5.1 % (0.0-7.0); Lymphocytes % (auto) 10.6 % (10.0-50.0); Mean Corpuscular Hemoglobin 19.5 pg (28.0-32.0); Mean Corpuscular Volume 62.7 fL (80.0-100.0); Monocytes % (auto) 7.2 % (0.0-12.0); Neutrophils % (auto) 76.1 % (37.0-80.0); Platelet Count (auto) 183 10^3/uL (140-450); Red Blood Cells 4.58 10^6/uL (4.5-5.90); Red Cell Distribution Width 20.1 % (11.8-14.3)
[2025-02-17 15:06] LABS: Anisocytosis Slight; Hypochromia Marked; Platelet Estimate Adequate
[2025-02-17 15:12] LABS: Alanine Aminotransferase 10 U/L (7-40); Alkaline Phosphatase 66 U/L (46-116); Anion Gap 8 (5-15); BUN/Creatinine Ratio 13.8 (10.0-20.0); Blood Urea Nitrogen 21 mg/dL (9-23); Calcium 9.9 mg/dL (8.7-10.4); Carbon Dioxide 27 mmol/L (20-31); Glucose 101 mg/dL (74-106); Potassium 4.3 mmol/L (3.5-5.1); Sodium 142 mmol/L (136-145); Total Protein 7.4 g/dL (5.7-8.2)
[2025-02-17 15:13] LABS: Bilirubin, Total 0.3 mg/dL (0.2-1.0)
[2025-02-17 15:14] LABS: Albumin 4.9 g/dL (3.2-4.8); Aspartate Aminotransferase 9 U/L (13-40); Chloride 107 mmol/L (98-107)
[~2025-02-18] VITALS: Ht 175.3 cm; Wt 93.4 kg
[~2025-02-18] MED LIST changes: -ACET500T58 PO; -AMIT25TA20 PO; +BUPIVACAINE 0.25% INJ 50ML VIAL ONE; +BUPIVACAINE 0.5% P/F INJ 10 ML VIAL ONE; +BUPIVACAINE HCL 50 ML ONE; +CEPH500C PO; +DexAMETHasone SOD PHOS 4 MG/1ML SDV INJ ONE; +EPINEPHrine HCL 1 MG/1 ML AMP ONE; +LIDOCAINE 1% (LOCAL ANESTH.) PF 5ml SDV ONE; -METF-370 PO; -NITR0.4S29 SL; -NYST-23 TOP; -PANT40T PO; +SEMA2INJ3 SC; -TRIA0.1P2 TOP; +UMEC1AER IN
--- NOTE | 2025-02-18 11:25 | DVHHP2 ---
History Allergies: Coded Allergies: Gabapentin (Verified Allergy, Mild, 09/16/24) Atorvastatin (Verified Allergy, Unknown, 09/16/24) Pregabalin (Verified Allergy, Unknown, 09/16/24) Simvastatin (Verified Allergy, Unknown, 09/16/24) Empagliflozin (Unverified Adverse Reaction, Mild, yeast infection, 09/16/24) Chief Complaint: Patient is a 74-year-old male who presents to [facility] area with concern for a right 2nd toe fracture. Patient was previously seen by Reuben COTE, who attempted to reduce it but still maintain some regularity. Patient does not remember when he fracture of the toe or how he did it. The toe was previously bruised. Patient denies any other pedal complaints at this time. Physical Exam Other Dermatological: Swelling and ecchymosis present over the foot No open wounds noted No gross deformity or visible displacement Vascular: Dorsalis pedis and posterior tibial pulses are 2+ bilaterally Capillary refill is <2 seconds Skin temperature is warm bilaterally Neurologic: Protective sensation intact to 10g monofilament Vibration sensation normal Musculoskeletal: Tenderness localized over right 2nd toe Pain reproduced with direct palpation and compression Active and passive range of motion limited due to pain Patient unable to fully weight bear on the affected side Plan ASSESSMENT: Patient is a 74 year old who [facility] right 2nd toe frac ture with angulation PLAN: X-ray of the foot and ankle obtained to confirm fracture and assessed displacement Reviewed imaging which showed Fracture appears to be angulated unstable We will plan to ORIF the toe and leave it pin it for 4 weeks Immobilization initiated with a cam boot Ice and elevate to reduce swelling Prescribed meloxicam 15 mg to be taken daily for discomfort Reviewed signs of worsening pain and numbness Continue immobilization until follow up All questions were answered, and concerns addressed to the patients satisfaction. Patient is to contact the clinic should any concerns or questions arise. Patient understands that if any questions or concerns arise prior to the next appointment, I should be contacted immediately. FOLLOW-UP: RTC in 2 weeks for post op visit HAYLEY FIGUEROA DPM Feb 18, 2025 11:25
[2025-02-18 11:45] VITALS: TEMP 97.6
[2025-02-18] MEDS: LIDOCAINE 1% HCL (LOCAL ANESTH.) INJ 20ML MDV ONE (12:21)
[2025-02-18] MEDS: ceFAZolin 2 GM/D5W50ml 50 ML IV ONE (12:25)
[2025-02-18 12:33] VITALS: O2SAT 98
--- NOTE | 2025-02-18 12:37 | DVHOP2 ---
Operative Report - 2 Report Details Date: 02/18/25 Preop Diagnosis: 1. Right 2nd toe displaced fracture 2. Right foot pain Postop Diagnosis: Right 2nd toe displaced fracture Surgeon: Hayley Figueroa MD Anesthesiologist: None Anesthesia: Local Consent: The patient was informed of the risks and benefits of the procedure. These include but are not limited to complications of anesthesia, postoperative infection, incomplete relief of symptoms, recurrence of symptoms, damage to blood vessels, nerves and tendons, deep venous thrombosis, pulmonary embolism and possible need for repeat surgery in the future. Complications: Minimal Estimated Blood Loss: Minimal Fluids: None Findings: Consistent with the diagnosis Indications for Surgery: Displaced right toe Name of Procedure Performed 1. Right second toe ORIF (34137) Procedure Details Procedure Details: PRE-PROCEDURE INFORMATION: In the pre-op holding area, the extremity to be operated on was clearly marked and the patient verified correct laterality of the marking. The patient was transferred to the OR table and placed in a supine position. A timeout was performed in which identification of the correct patient, procedure, location, and materials was done. The right foot and leg were prepped and draped in normal sterile fashion. DESCRIPTION OF PROCEDURE: Tendon with direct to the right 2nd toe, the deformity was mainly reduced and aligned. Under fluoroscopic guidance, 0.045 K- wire was driven to the base proximal phalanx. Fluoroscopy confirmed satisfactory placement of the K-wire. A dry sterile dressing was placed on the surgical extremity. The patient was placed in a postop shoe POSTOPERATIVE INFORMATION: The patient tolerated the above noted procedure and anesthesia well and was transferred to the PACU with vital signs stable, and vascular status intact with capillary refill intact to all digits. Postoperative instructions reviewed in detail with the patient with written instructions provided. Patient will return to clinic in approximately 10-14 days for first postoperative visit. Patient has the number of the clinic and was instructed to call prior to that time should any problems, questions, or concerns arise. Condition Good Disposition Home HAYLEY FIGUEROA DPShayy Feb 18, 2025 12:37
[2025-02-18 12:51] VITALS: BP 125/62; PULSE 92; RESP 12; O2SAT 95
== END | disposition home or self-care (01) ==
LOC: SUR 11:02
PROVIDERS: ATTEND Podiatrist
DX: S92.511A Displaced fracture of proximal phalanx of right lesser toe(s), initial encounter for closed fracture (principal); I10 Essential (primary) hypertension; E11.9 Type 2 diabetes mellitus without complications; Z98.890 Other specified postprocedural states; Z79.899 Other long term (current) drug therapy; Z88.8 Allergy status to other drugs, medicaments and biological substances; Z79.4 Long term (current) use of insulin; Z83.3 Family history of diabetes mellitus; Z82.49 Family history of ischemic heart disease and other diseases of the circulatory system; Z87.891 Personal history of nicotine dependence; Z79.01 Long term (current) use of anticoagulants; X58.XXXA Exposure to other specified factors, initial encounter; Y93.89 Activity, other specified; Y92.89 Other specified places as the place of occurrence of the external cause; Y99.8 Other external cause status
CPT/HCPCS: 28515; 36415; 64445; 80053; 81001; 82962; 85025; 85610; C1713; J0171; J0690; J2003; J3490; J1100

== ENCOUNTER 2025-08-12 14:36 | Outpatient (CLI) | payer OTHER ==
[~2025-08-12 14:36] MED LIST changes: -BUPIVACAINE 0.25% INJ 50ML VIAL ONE; -BUPIVACAINE 0.5% P/F INJ 10 ML VIAL ONE; -BUPIVACAINE HCL 50 ML ONE; -DexAMETHasone SOD PHOS 4 MG/1ML SDV INJ ONE; -EPINEPHrine HCL 1 MG/1 ML AMP ONE; -LIDOCAINE 1% (LOCAL ANESTH.) PF 5ml SDV ONE
[2025-08-12 15:18] LABS: Urine Protein, UAD Negative (Negative)
[2025-08-12 15:20] LABS: Chloride 103 mmol/L (98-107); Potassium 4.4 mmol/L (3.5-5.1); Sodium 138 mmol/L (136-145)
[2025-08-12 15:21] LABS: Anion Gap 11 (5-15); Carbon Dioxide 24 mmol/L (20-31)
[2025-08-12 15:22] LABS: Calcium 9.7 mg/dL (8.7-10.4)
[2025-08-12 15:26] LABS: BUN/Creatinine Ratio 11.8 (10.0-20.0); Blood Urea Nitrogen 19 mg/dL (9-23)
[2025-08-12 15:28] LABS: Glucose 113 mg/dL (74-106)
[2025-08-12 15:44] LABS: Protein, Urine 7.6 mg/dL (1-14)
== END 2025-08-13 17:00 | disposition home or self-care (01) ==
LOC: LAB 14:36
PROVIDERS: ATTEND Internal Medicine
DX: E11.22 Type 2 diabetes mellitus with diabetic chronic kidney disease (principal); N18.9 Chronic kidney disease, unspecified
CPT/HCPCS: 36415; 80048; 81001; 82043; 82570; 83935; 84153; 84156; 84300

== ENCOUNTER 2025-09-28 11:10 | Outpatient (CLI) | payer OTHER ==
--- NOTE | 2025-09-30 18:10 | DVHSR ---
APPROVED REPORT EXAM: Two-dimensional and M-mode echocardiogram with Doppler and color Doppler. INDICATION Mild CAD RISK FACTORS Height: 69, Weight: 180 DIMENSIONS LVDd (3.8-5.7cm) LA (2D) 3.6 (1.9-4.0cm) Aortic Root 3.4 (2.0-3.7cm) LVDs (2.5-4.0cm) LA (MM) (1.9-4.0cm) Aortic Cusp Exc 1.8 (1.5-2.0cm) EF (%) 61.0 (55-70%) Rt. Atrium (1.9-4.0cm) Asc. Aorta cm Mitral Valve Mitral Mitral Stenosis E wave 0.88m/s MV Mean GR. mmHg A wave 1.29m/s MV Peak GR. mmHg E/A ratio 0.7 2D MVA cm2 DECEL Time 122ms PRESS 1/2 Time ms Aortic Valve Aortic Valve Aortic Stenosis V1 1.17m/s AO Mean GR. 2mmHg V2 1.12m/s AO Peak GR. 5mmHg LVOT Diameter 2.1 (1.8-2.4cm) Doppler HIWOT 3.62cm2 Pulmonic Valve V2 0.88m/s Tricuspid Valve RVSP 3mmHg Other Information Technically limited study due to body habitus. Conclusion Technically good study. Sinus rhythm. Normal chamber sizes. Valves are normal. EF of 65-70% with normal RV function. Unremarkable Doppler. No pericardial effusion masses or vegetations.
== END 2025-09-28 17:00 | disposition home or self-care (01) ==
LOC: XYW 11:10
PROVIDERS: ATTEND Internal Medicine
DX: I25.10 Atherosclerotic heart disease of native coronary artery without angina pectoris (principal)
CPT/HCPCS: 93306

== ENCOUNTER 2025-10-12 10:16 | Outpatient (CLI) | payer OTHER ==
[2025-10-12 10:50] LABS: Hemoglobin 10.5 g/dL (13.5-17.5); Mean Corpuscular Hemoglobin 21.7 pg (28.0-32.0)
[2025-10-12 10:51] LABS: Hematocrit 33.1 % (41.0-53.0); Mean Corpuscular Volume 68.6 fL (80.0-100.0); Nucleated Red Blood Cells % 0.1 %
[2025-10-12 11:22] LABS: Albumin 4.6 g/dL (3.2-4.8); Alkaline Phosphatase 65 U/L (46-116); Anion Gap 8 (5-15); BUN/Creatinine Ratio 9.6 (10.0-20.0); Blood Urea Nitrogen 16 mg/dL (9-23); Calcium 9.5 mg/dL (8.7-10.4); Carbon Dioxide 26 mmol/L (20-31); Chloride 105 mmol/L (98-107); Glucose 93 mg/dL (74-106); Potassium 4.0 mmol/L (3.5-5.1); Sodium 139 mmol/L (136-145); Total Protein 7.3 g/dL (5.7-8.2)
[2025-10-12 11:23] LABS: Bilirubin, Total 0.4 mg/dL (0.2-1.0)
[2025-10-12 11:28] LABS: Prostate Specific Antigen 2.24 ng/mL (0.0-4.0)
[2025-10-12 11:31] LABS: Alanine Aminotransferase < 9 U/L (7-40)
== END 2025-10-12 17:00 | disposition home or self-care (01) ==
LOC: LAB 10:16
PROVIDERS: ATTEND Internal Medicine
DX: I12.9 Hypertensive chronic kidney disease with stage 1 through stage 4 chronic kidney disease, or unspecified chronic kidney disease (principal); E11.22 Type 2 diabetes mellitus with diabetic chronic kidney disease; N18.9 Chronic kidney disease, unspecified; Z79.899 Other long term (current) drug therapy
CPT/HCPCS: 36415; 80053; 82306; 82607; 83036; 84153; 84443; 85025